=== PATIENT | male | born 1950 | race Caucasian/White ===

== ENCOUNTER 2017-09-21 | Observation (INO) | payer MEDICARE, OTHER, SELFPAY ==
[2017-09-21] VITALS (9 sets, daily range): BP systolic 134–167; BP diastolic 75–94; PULSE 55–72; RESP 16–18; TEMP 36.1–37.1; O2SAT 95–99; BMI 31.9; BMI 28.6; BMI 89.9
--- NOTE | 2017-09-21 00:17 | CT_ITS ---
STUDY: CT ABDOMEN AND PELVIS WITHOUT CONTRAST REASON FOR EXAM: Male, 67 years old. Left flank pain RADIATION DOSAGE (If Supplied By Facility): CTDIvol = ( 13.90 ) mGy, DLP = ( 666.84 ) mGycm TECHNIQUE: Transaxial images were obtained from the dome of the diaphragm to the symphysis pubis without oral contrast, and without intravenous contrast. Sagittal and coronal images were reconstructed. Individualized dose optimization techniques were used for this CT. COMPARISON: None. FINDINGS: The lung bases are clear. The liver is normal with no dilated intrahepatic biliary radicles. The gallbladder is slightly contracted but contains no stones.. The spleen, pancreas and both adrenals are normal. A 7 mm obstructing calculus in the left ureteropelvic junction with a subsequent hydronephrosis. The stomach is normal. There is no bowel distention, acute appendicitis or diverticulitis. No abnormally constricting large bowel lesions. The abdominal wall is intact. There is no ascites, free intraperitoneal air or any evidence of epiploic appendagitis. The vascular structures in the retroperitoneum are normal The bones and joints seen are normal with no osteolytic or osteoblastic changes There is no retrocrural, retroperitoneal or mesenteric adenopathy. There is no mesenteric mistiness The urinary bladder is normal.. The prostate is not enlarged. A 2.1 cm left pelvic lymph node.. CT/Abdomen/Pelvis without Cont IMPRESSION: A left hydronephrosis secondary to a nonobstructing 7 mm calculus in the left ureteropelvic junction. A 2.1 cm left pelvic lymph node. Electronically Signed: James Heredia, at 1:21 EDT Tel , Service support ,
--- NOTE | 2017-09-21 00:22 | ED.DCSUM_ITS ---
- ER Visit Summary Date of Service: 09/21/17 Chief Complaint: Left flank pain History of Present Illness: The patient is a 67 M with sudden onset left side pain earlier this evening. He thought he might of pulled a muscle, but the pain seems to be unrelated to movement. Papi is helping somewhat. It comes on suddenly and then he has difficulty getting comfortable. Denies any urinary symptoms. Denies any other GI symptoms. Denies chest pain or shortness of breath. Physical Examination: Blood pressure 167/94. Otherwise vitals unremarkable. Alert and oriented. No acute distress. Heart regular. Lungs clear. Abdomen soft and nontender. Back nontender. CVA nontender. No overlying rash. Calves soft and supple. Test Results: Labs, urinalysis, and CT pending. Emergency Department Course and Treatment: Patient was treated with fluids while awaiting results. He is not currently having pain and declined any pain medication. Urinalysis is likely contaminated. Creatinine 1.3 and BUN 24. Platelets 139. Patient had saline here. Declined pain medicine. CT showed a 7 mm left UPJ stone and positive lymph nodes. I spoke with urology, Dr. Eisenberg will admit. Treatment Plan: As above Disposition: Admission Impression: 1. Left ureteral colic This note was generated with [employer] dictation software. It may contain incorrect words, spelling, and punctuation that were not noted in review of the chart prior to signing ED Disposition - Plan for ED Patient: Chief Complaint: Flank Pain Referrals: Jay Jay Muniz MD [Primary Care Provider] -
[2017-09-21] MEDS: 0.9% Normal Saline 1,000 ML 1000 ML IV (00:26)
[2017-09-21 00:28] LABS: Absolute Lymphocyte Count 0.87 X10^3/ul (0.83-4.51); Absolute Neutrophil Count 3.3 X10^3/uL (2.0-7.7); Basophil# 0.04 X10^3/uL; Basophil% 0.8 % (0-1); Eosinophil# 0.29 X10^3/uL; Eosinophils% 5.6 % (0-5); Hematocrit 39.6 % (40-54); Hemoglobin 13.7 g/dl (13.0-16.5); Lymphocyte # 0.87 X10^3/ul (4.0); Lymphocyte % 16.9 % (19-41); Mean Corp Hgb Conc 34.6 g/gl (32-36); Mean Corpuscular Hgb 33.1 pg (27.0-32.0); Mean Corpuscular Volume 95.7 fL (80-94); Mean Platelet Vol. 10.8 fl (6.2-12.0); Monocyte# 0.62 X10^3/uL; Neutrophil # 3.31 X10^3/uL (2.7-7.7); Neutrophil % 64.1 % (47-70); Platelet Count 139 K/mm3 (150-450); RBC Distribution Width CV 13.3 % (11.6-14.6); RBC Distribution Width SD 44.8 fl (35.1-43.9); Red Blood Count 4.14 M/mm3 (4.6-6.2); White Blood Count 5.2 K/mm3 (4.4-11.0)
[2017-09-21 00:31] LABS: POSITIVE COUNT NO; POSITIVE DIFFERENTIAL NO; POSITIVE MORPHOLOGY NO
[2017-09-21 00:39] LABS: Mucous, Urine 0 SEEN /hpf (<or=2+)
[2017-09-21 00:41] LABS: Anion Gap 7 (5-15); BUN 24 mg/dL (7-18); BUN/Creat Ratio 18.3 RATIO (10-20); Calcium,Total 8.6 mg/dL (8.5-10.1); Chloride 110 mmol/L (98-107); Creatinine, Serum 1.31 mg/dL (0.70-1.30); EST Glomerular Filtration Rate 58 mL/min (>60); Est Glom Filt Rate - Afr Amer 70 mL/min (>60); Estimated Creatinine Clearance 50.06 ml/min; Glucose 106 mg/dL (74-106); Potassium 4.2 mmol/L (3.5-5.1); Sodium Level 144 mmol/L (136-145)
[2017-09-21 00:46] LABS: Color, Urine Yellow (Yellow); Glucose, Dipstick Normal (Normal); Ketone-Dipstick Negative (Negative); Leukocyte Esterase-Dipstick 25 /ul (Negative); Nitrite-Dipstick Negative (Negative); Occult Blood-Urine 150 /ul (Negative); Protein-Dipstick 30 mg/dl (Negative); Specific Gravity, Urine 1.025 (1.002-1.030); Urine Bilirubin Dipstick Negative (Negative); Urine Clarity Sl Cloudy (Clear); Urine Urobilinogen Normal (Normal)
[2017-09-21 00:49] LABS: Red Blood Cells-Urine 10-25 SEEN /hpf (0-5)
[2017-09-21 00:50] LABS: Bacteria RARE /hpf (None Seen); Squamous Epithelial Cells - UA 0-5 SEEN /hpf (0-5); White Blood Cells 0-5 SEEN /hpf (0-5)
--- NOTE | 2017-09-21 07:33 | PCM.HP.STD ---
Problem List (1) Left ureteral stone Status: Acute (2) Hydronephrosis, left Status: Acute History of Present Illness Date of Admission: 09/21/17 Chief Complaint: 6 x 7 mm stone in the left ureter causing obstruction and left hydronephrosis The patient is a 67 year old male who presented with pain to the emergency room with left flank pain. CT scan was done that demonstrated a stone 7 x 7 mm stones obstructing the left kidney with left hydronephrosis he also had a minor UTI with his urine being positive with nitrite. Clinically no fevers or chills. Patient was offered intervention or discharge to home given that that this this was a surgical stone the patient agreed to undergo intervention with ureteroscopy and laser of the stone Past Medical History Past Medical History (Chronic Problems): Chronic Problems Obstructive sleep apnea, adult (Chronic) HTN (hypertension) (Chronic) HLD (hyperlipidemia) (Chronic) Esophageal reflux (Chronic) Coronary atherosclerosis of [place] coronary artery (Chronic) Allergies cinnamon Allergy (Verified 09/21/17 00:03) Swelling molasses Allergy (Verified 09/21/17 00:03) Swelling olmesartan medoxomil [From Benicar] Adverse Reaction (Verified 09/21/17 00:03) Unknown Home Medications: Ambulatory Orders Medication Instructions Recorded Atorvastatin Calcium [Lipitor] 40 mg PO QHS 03/12/16 Fish Oil/Dha/Epa [Fish Oil 1,200 2 each PO DAILY 03/12/16 mg Fish Oil] Magnesium 250 mg PO DAILY 03/12/16 Metoprolol Tartrate [Lopressor 50 mg PO DAILY 03/12/16 (Beta Kirsite)] Multivitamins,Therapeutic 1 tablet PO DAILY 03/12/16 [Multivitamin] Potassium Chloride [Klor-Con M10] 10 meq PO BID 03/12/16 Psyllium Husk [Metamucil] 1 capsule PO BID 03/12/16 Ranitidine [Zantac] 150 mg PO BID 03/12/16 Aspirin [Adult Low Dose Aspirin EC] 81 mg PO DAILY 06/13/16 Surgical History: no surgical history, - - Multiple orthopedic procedures Psychiatric History: No pertinent psych hx Lives: Spouse/ Significant Other Smoking Status: Never smoker Tobacco Use: Non-smoker Alcohol: None Drugs: None - *Family History Maternal History Items: No pertinent history Review of Systems Constitutional: Denies: Chills, Fever, Weight Change HEENT: Denies: Head Aches, Sinus Congestion, Sinus Drainage Cardiovascular: Denies: Chest Pain, Palpitations Respiratory: Denies: Cough, Shortness of breath at rest, Sputum production Gastrointestinal: Denies: Abdominal Pain, Nausea, Vomiting Genitourinary: Denies: Dysuria Musculoskeletal: Denies: Joint Pain, Joint Tenderness Skin: Denies: Rash, Wounds Neurological: Denies: Numbness, Tingling, Focal weakness Psychiatric: Denies: Anxiety, Depression, Homicidal Ideations, Suicidal Ideations Hematologic/ Lymphatic: Denies: Easy Bruising, Easy Bleeding VTE Information - Inpt Only VTE Present on Admission: No VTE Mechan Device Prophylaxis: SCD's VTE Pharm Prophylaxis ordered?: No Reason prophylaxis not ordered:: Treatment Not Indicated Patient Problems: Active and Suspected Problems Left ureteral stone (Acute) Hydronephrosis, left (Acute) - Physical Exam General: Alert, Oriented x3, Cooperative HEENT: Atraumatic, PERRLA, EOMI, Normocephalic Neck: Supple, No JVD, Negative Carotid Bruits Lungs: Clear to auscultation, Normal air movement Cardiovascular: Regular rate, No murmurs Abdomen: Bowel Sounds Present, Soft, Non Tender Extremities: No edema, Capillary Refill Less than 3 Seconds Skin: No rashes, No breakdown Musculoskeletal: No Tenderness to Palpation of Joints or Extremities Neurological: Cranial nerves II-XII grossly intact Psych/Mental Status: Normal Affect, Appropriate Vital Signs Temp Pulse Resp BP Pulse Ox 97.7 F L 62 16 150/89 H 99 09/21/17 05:56 09/21/17 05:56 09/21/17 05:56 09/21/17 05:56 09/21/17 05:56 Oxygen Delivery Method Room Air Weight: 88.1 kg Body Mass Index (BMI) 28.6 Intake and Output for Last 24 Hours 09/19/17 09/20/17 09/21/17 23:59 23:59 23:59 Intake Total Balance Assessment/Plan Active and Suspected Problems Left ureteral stone (Acute) Hydronephrosis, left (Acute) 67-year-old male with obstruction of the left kidney from a 7 x 7 mm stone in the proximal ureter plan to take the surgery today for cystoscopy ureteroscopy laser of the stone and placement of the stent with a string for extraction in a few days.
--- NOTE | 2017-09-21 07:48 | PCM.DC.URO ---
Discharge Diet: Light diet - advance as tolerated Discharge Activity: Return to Normal Activity May shower in (days): 1 Call your doctor if your incision/area has: Continuous Slow Oozing, Sudden Increased Bleeding, Increased Pain/ Swelling, Increased Redness, Foul Smelling Discharge, Swelling at the incision site Call your doctor if you observe: Fever of 101 or Higher Suture Line Care: Avoid Pulling/Pushing, Avoid Pinching/Bending Allergies/Adverse Reactions: Allergies cinnamon Allergy (Verified 09/21/17 00:03) Swelling molasses Allergy (Verified 09/21/17 00:03) Swelling olmesartan medoxomil [From [facility]] Adverse Reaction (Verified 09/21/17 00:03) Unknown Medications to take at Discharge Atorvastatin Calcium [Lipitor] 40 mg PO QHS 03/12/16 Fish Oil/Dha/Epa [Fish Oil 1,200 mg Fish Oil] 2 each PO DAILY 03/12/16 Magnesium 250 mg PO DAILY 03/12/16 Metoprolol Tartrate [Lopressor (Beta Kirstie)] 50 mg PO DAILY 03/12/16 Multivitamins,Therapeutic [Multivitamin] 1 tablet PO DAILY 03/12/16 Potassium Chloride [Klor-Con M10] 10 meq PO BID 03/12/16 Psyllium Husk [Metamucil] 1 capsule PO BID 03/12/16 Ranitidine [Zantac] 150 mg PO BID 03/12/16 Aspirin [Adult Low Dose Aspirin EC] 81 mg PO DAILY 06/13/16 Docusate Sodium [Colace] 100 mg PO BID #14 cap 09/21/17 Hydrocodone/Acetaminophen [[place] 5-325 Tablet] 1 ea PO Q4H PRN PRN 7 Days #14 tab 09/21/17 Phenazopyridine HCl [Pyridium] 200 mg PO TID #15 tab 09/21/17 Tamsulosin HCl [Flomax] 0.4 mg PO DAILY #7 cap 09/21/17 The following prescriptions were given: Hydrocodone/Acetaminophen [[place] 5-325 Tablet] 1 ea PO Q4H PRN PRN 7 Days #14 tab PRN Reason: Pain Tamsulosin HCl [Flomax] 0.4 mg PO DAILY #7 cap Docusate Sodium [Colace] 100 mg PO BID #14 cap Phenazopyridine HCl [Pyridium] 200 mg PO TID #15 tab Primary Care Physician: Jay Jay Muniz MD [Primary Care Provider] - Please Follow Up With: aRfael Eisenberg MD When: FridaySeptember 24 at 8:45 am to remove stent.
--- NOTE | 2017-09-21 08:06 | DCINST_ITS ---
Discharge Diet: Light diet - advance as tolerated Discharge Activity: Return to Normal Activity May shower in (days): 1 Call your doctor if your incision/area has: Continuous Slow Oozing, Sudden Increased Bleeding, Increased Pain/ Swelling, Increased Redness, Foul Smelling Discharge, Swelling at the incision site Call your doctor if you observe: Fever of 101 or Higher Suture Line Care: Avoid Pulling/Pushing, Avoid Pinching/Bending Allergies/Adverse Reactions: Allergies cinnamon Allergy (Verified 09/21/17 00:03) Swelling molasses Allergy (Verified 09/21/17 00:03) Swelling [facility]mes[facility]il [facility] Adverse Reaction (Verified 09/21/17 00:03) Unknown Medications to take at Discharge Atorvastatin Calcium [Lipitor] 40 mg PO QHS 03/12/16 Fish Oil/Dha/Epa [Fish Oil 1,200 mg Fish Oil] 2 each PO DAILY 03/12/16 Magnesium 250 mg PO DAILY 03/12/16 Metoprolol Tartrate [Lopressor (Beta Kirstie)] 50 mg PO DAILY 03/12/16 Multivitamins,Therapeutic [Multivitamin] 1 tablet PO DAILY 03/12/16 Potassium Chloride [Klor-Con M10] 10 meq PO BID 03/12/16 Psyllium Husk [Metamucil] 1 capsule PO BID 03/12/16 Ranitidine [Zantac] 150 mg PO BID 03/12/16 Aspirin [Adult Low Dose Aspirin EC] 81 mg PO DAILY 06/13/16 Docusate Sodium [Colace] 100 mg PO BID #14 cap 09/21/17 Hydrocodone/Acetaminophen [[place] 5-325 Tablet] 1 ea PO Q4H PRN PRN 7 Days #14 tab 09/21/17 Phenazopyridine HCl [Pyridium] 200 mg PO TID #15 tab 09/21/17 Tamsulosin HCl [Flomax] 0.4 mg PO DAILY #7 cap 09/21/17 The following prescriptions were given: Hydrocodone/Acetaminophen [[place] 5-325 Tablet] 1 ea PO Q4H PRN PRN 7 Days #14 tab PRN Reason: Pain Tamsulosin HCl [Flomax] 0.4 mg PO DAILY #7 cap Docusate Sodium [Colace] 100 mg PO BID #14 cap Phenazopyridine HCl [Pyridium] 200 mg PO TID #15 tab Primary Care Physician: Jay Jay Muniz MD [Primary Care Provider] - Please Follow Up With: Rafael Eisenberg MD When: FridaySeptember 24 at 8:45 am to remove stent.
--- NOTE | 2017-09-21 08:22 | PCM.OPRPT ---
Problem List (1) Left ureteral stone Status: Acute (2) Hydronephrosis, left Status: Acute Report of Operation Date of Procedure: 09/21/17 Pre-Operative Diagnosis: Left ureteral calculi. Post-Operative Diagnosis: Same Surgery/Procedure Performed:: Cystoscopy, balloon dilation of the left ureter, left ureteroscopy laser lithotripsy of stone. And left stent placement Description of Surgical Findings:: 67-year-old male taken back to the operating room after induction of anesthesia he was placed in dorsal lithotomy position the penis and testicles were prepped and draped in usual sterile fashion went into the bladder with a 21 German rigid cystourethroscope the entire length of the urethra was normal the pendulous urethra is normal the bulbar urethra is normal the sphincter was intact and normal prostate had mild bilateral hypertrophy mild obstruction inside the bladder he did have a diverticulum in the posterior wall the bladder a small 2 cm in size the rest of the bladder wall is nice and smooth no tumors or stones the left and right ureteral orifice are normal the trigone was normal. I then cannulated the left ureteral orifice with a Glidewire advanced the wire up into the kidney I could see the wire passed the stone I then used a balloon dilator and balloon dilated the distal ureter with a 12 German 10 cm balloon dilator. Once the distal ureter was balloon dilated and I left the wire in place I went over the wire with the flexible ureteroscope I reached the stone pulled the wire out and then engages stone with laser lithotripsy stone was broken up and the little tiny pieces that should all pass. No significant fragments were left, I then put a wire in through the ureteroscope work my way down the ureteroscope pulled out the ureteroscope leaving the wire in place and then over the wire I placed a stent 6 German by 26 cm stent once a stent was in good position between the kidney and bladder pulled the wire the stent coiled in the kidney and cord in the bladder left the string on the stent for extraction in a few days drain the bladder and the patient anesthetic is currently being reversed he will follow-up in my office will see my nurse practitioner to have the stent removed. Type of Anesthesia:: General Drains: stent left side. - Admit VTE Documentation VTE Present on Admission: No VTE Mechan Device Prophylaxis: SCD's VTE Pharm Prophylaxis ordered?: No
[2017-09-21] MEDS: 0.9% Normal Saline 1,000 ML 75 ML IV (08:50)
[2017-09-21] MEDS: Metoprolol Tartrate 50 MG Tablet PO (10:03)
[2017-09-21] MEDS: Multivitamins,Therapeutic Tablet 1 TABLET PO (10:03)
[2017-09-21] MEDS: Psyllium 1 PACKET PO (10:03)
== END 2017-09-21 12:40 | disposition home or self-care (01) ==
LOC: ED 00:39 → MS2 02:14
PROVIDERS: Admitting Provider Urology; Emergency Provider Emergency Medicine; Family Provider Family Medicine; PCP Family Medicine; Visit Provider Urology
PROC: (CPT 50575; principal; 2017-09-21 07:30)
DX: N13.2 Hydronephrosis with renal and ureteral calculous obstruction (principal)
CPT/HCPCS: 52356; 74176; 76000; 80048; 81001; 85025; 87086; 96360; 96361; 99218; 99282; J7030; A4216; C1769; C2617; G0378

== ENCOUNTER → 2018-07-06 09:49 | Outpatient (CLI) | payer MEDICARE, OTHER, SELFPAY ==
[2017-09-21 03:14] VITALS: BMI 28.6
[2018-07-06 12:06] LABS: Absolute Lymphocyte Count 0.89 X10^3/ul (0.83-4.51); Absolute Neutrophil Count 1.8 X10^3/uL (2.0-7.7); Basophil# 0.03 X10^3/uL; Basophil% 0.8 % (0-1); Eosinophil# 0.38 X10^3/uL; Eosinophils% 10.7 % (0-5); Hematocrit 44.8 % (40-54); Lymphocyte # 0.89 X10^3/ul (4.0); Lymphocyte % 25.1 % (19-41); Mean Corp Hgb Conc 33.5 g/gl (32-36); Mean Corpuscular Hgb 31.7 pg (27.0-32.0); Mean Corpuscular Volume 94.7 fL (80-94); Mean Platelet Vol. 11.5 fl (6.2-12.0); Monocyte# 0.45 X10^3/uL; Monocyte% 12.7 % (0-10); Neutrophil # 1.78 X10^3/uL (2.7-7.7); Neutrophil % 50.1 % (47-70); Platelet Count 155 K/mm3 (150-450); RBC Distribution Width CV 13.1 % (11.6-14.6); Red Blood Count 4.73 M/mm3 (4.6-6.2); White Blood Count 3.6 K/mm3 (4.4-11.0)
[2018-07-06 12:08] LABS: POSITIVE COUNT NO; POSITIVE DIFFERENTIAL NO; POSITIVE MORPHOLOGY NO
[2018-07-06 12:27] LABS: ALB/GLOB Ratio 0.9 RATIO (0.9-2.4); AST(SGOT) 22 U/L (15-37); Alanine Aminotransfer ALT/SGPT 28 U/L (16-61); Albumin, Serum 3.4 g/dL (3.2-5.0); Alkaline Phosphatase 74 U/L (45-117); Anion Gap 10 (5-15); BUN 11 mg/dL (7-18); BUN/Creat Ratio 13.7 RATIO (10-20); Calcium,Total 8.6 mg/dL (8.5-10.1); Chloride 107 mmol/L (98-107); EST Glomerular Filtration Rate 102 mL/min (>60); Est Glom Filt Rate - Afr Amer 124 mL/min (>60); Globulin 3.6 g/dL (2.2-4.2); Glucose 97 mg/dL (74-106); Potassium 4.3 mmol/L (3.5-5.1); Sodium Level 143 mmol/L (136-145); T4 Free Direct 0.98 ng/dL (0.76-1.46); Thyroid Stim Hormone (TSH) 1.59 uIU/mL (0.358-3.74)
[2018-07-06 14:00] LABS: Vitamin B12 1624 pg/mL (211-911)
== END ==
PROVIDERS: PCP Family Medicine; Visit Provider Family Medicine
DX: E78.5 Hyperlipidemia, unspecified (principal); I10 Essential (primary) hypertension; D69.6 Thrombocytopenia, unspecified
CPT/HCPCS: 36415; 80053; 82607; 84439; 84443; 85025

== ENCOUNTER → 2018-07-17 17:40 | Outpatient (CLI) | payer MEDICARE, OTHER, SELFPAY ==
[2018-07-17 17:02] VITALS: BMI 28.6
--- NOTE | 2018-07-17 17:45 | RAD_ITS ---
STUDY: X-RAY - LEFT FOOT CLINICAL: Male, 68 years old. Infection of the left foot, cellulitis TECHNIQUE: 3 view(s) of the foot. COMPARISON: Prior comparison studies are not available for review at this time. FINDINGS: There is a plantar calcaneal spur. Accessory ossicles adjacent to the calcaneus. Normal metatarsi. Normal metatarsophalangeal joint of the great toe. Normal tibial and fibular sesamoid bones. Normal interphalangeal joint of the great toe. Normal phalanges of the great toe. Normal second through fifth metatarsophalangeal joints. Normal interphalangeal joints and phalanges of the lesser toes. Vascular calcifications are noted. RAD/Foot min 3 Views IMPRESSION: 1. No erosive or destructive bony process. Electronically Signed: Juan Carlos Randolph MD at 18:37 EST , Service support ,
== END ==
PROVIDERS: Family Provider Family Medicine; PCP Family Medicine; Referring Provider Physician Assistant Surgical; Visit Provider Physician Assistant Surgical
DX: L03.116 Cellulitis of left lower limb (principal)
CPT/HCPCS: 73630

== ENCOUNTER → 2018-07-27 10:38 | Outpatient (CLI) | payer MEDICARE, OTHER, SELFPAY ==
[2018-07-17 17:02] VITALS: BMI 28.6
[2018-07-27 12:53] LABS: CRP < 2.90 mg/L (0.0-3.0)
[2018-07-27 13:04] LABS: Erythrocyte Sedimentation Rate 13 mm/hr (0-20)
[2018-07-29 10:45] LABS: ANTINUCLEAR ANTIBODIES DIRECT Negative (Negative)
== END ==
PROVIDERS: Family Provider Family Medicine; PCP Family Medicine; Visit Provider Family Medicine
DX: I73.89 Other specified peripheral vascular diseases (principal); G62.9 Polyneuropathy, unspecified; D72.819 Decreased white blood cell count, unspecified
CPT/HCPCS: 36415; 85652; 86038; 86140; 86225; 86235

== ENCOUNTER → 2018-09-08 11:23 | Outpatient (CLI) | payer MEDICARE, OTHER, SELFPAY ==
[2018-08-29 11:13] VITALS: BMI 28.6
--- NOTE | 2018-09-08 11:24 | RAD_ITS ---
STUDY: X-RAY - LEFT SHOULDER REASON FOR EXAM: Male, 68 years old. Left shoulder pain TECHNIQUE: 4 view(s) of the shoulder. COMPARISON: None. FINDINGS: Moderate chronic acromioclavicular joint arthrosis/hypertrophy. Normal glenohumeral articulation. Osseous structures about the shoulder appear acutely intact. There is mild generalized osteopenia. Periarticular soft tissues unremarkable. Left hemithoracic structures unremarkable. RAD/Shoulder min 2 Views IMPRESSION: Chronic acromioclavicular joint arthrosis. Electronically Signed: Corbin Hurtado MD at 17:45 EDT Tel , Service support ,
== END ==
PROVIDERS: Family Provider Family Medicine; PCP Family Medicine; Referring Provider Anesthesiology Pain Medicine; Visit Provider Anesthesiology Pain Medicine
DX: M75.42 Impingement syndrome of left shoulder (principal)
CPT/HCPCS: 73030

== ENCOUNTER 2018-10-17 12:44 | Emergency (ER) | payer MEDICARE, OTHER, SELFPAY ==
[2018-09-24 10:32] VITALS: BMI 28.6
[2018-10-17 12:45] VITALS: BP 144/100; PULSE 84; RESP 18; TEMP 36.4; O2SAT 98; BMI 30.7
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
[2018-10-17] MEDS: Diphth,Pertuss(Acell),Tet Vac 0.5 ML Vial IM (13:26)
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
[2018-10-17 14:32] VITALS: BP 150/92; PULSE 70; RESP 15; O2SAT 98
== END 2018-10-17 14:33 | disposition home or self-care (01) ==
PROVIDERS: Emergency Provider Emergency Medicine; Family Provider Family Medicine; PCP Family Medicine
DX: S06.0X1A Concussion with loss of consciousness of 30 minutes or less, initial encounter (principal); S00.31XA Abrasion of nose, initial encounter; L08.9 Local infection of the skin and subcutaneous tissue, unspecified; S70.311A Abrasion, right thigh, initial encounter; V11.4XXA Pedal cycle driver injured in collision with other pedal cycle in traffic accident, initial encounter; Y93.55 Activity, bike riding; Y92.9 Unspecified place or not applicable; I25.10 Atherosclerotic heart disease of native coronary artery without angina pectoris; K21.9 Gastro-esophageal reflux disease without esophagitis; E78.5 Hyperlipidemia, unspecified; I10 Essential (primary) hypertension; G47.33 Obstructive sleep apnea (adult) (pediatric); Z79.82 Long term (current) use of aspirin; Z79.899 Other long term (current) drug therapy
CPT/HCPCS: 70450; 90471; 90715; 99282

== ENCOUNTER 2019-03-23 09:16 | Day surgery (SDC) | payer MEDICARE, OTHER, SELFPAY ==
[2019-03-23] VITALS (8 sets, daily range): BP systolic 117–149; BP diastolic 70–94; PULSE 60–63; RESP 12–16; TEMP 36.3–36.6; O2SAT 94–100; BMI 29.3
--- NOTE | 2019-03-23 09:36 | HP.PCM_ITS ---
Problem List (1) Screening for intestinal cancer Status: Acute History of Present Illness Date of Admission: 03/23/19 The patient is a 68 year old M who presents for screening colonoscopy today his most recent colonoscopy was 5 years ago. He has a family history with a father had colon cancer. He believes that very remotely he had colon polyp. He denies abdominal pain or bright red blood per rectum or melena. He is otherwise enjoying steady health. Past Medical History Past Medical History (Chronic Problems): Chronic Problems (Last Reviewed 09/24/18 @ 10:30 by Lashawn White) Obstructive sleep apnea, adult (Chronic) HTN (hypertension) (Chronic) HLD (hyperlipidemia) (Chronic) Esophageal reflux (Chronic) Coronary atherosclerosis of [place] coronary artery (Chronic) Allergies cinnamon Allergy (Verified 03/23/19 09:29) Swelling molasses Allergy (Verified 03/23/19 09:29) Swelling olmesartan medoxomil [From Benicar] Adverse Reaction (Verified 03/23/19 09:29) Unknown Home Medications: Ambulatory Orders Medication Instructions Recorded Fish Oil/Dha/Epa [Fish Oil 1,200 2 ea PO DAILY 03/12/16 mg Fish Oil] Magnesium 250 mg PO DAILY 03/12/16 Metoprolol Tartrate [Lopressor 50 mg PO DAILY 03/12/16 (Beta Kirstie)] Multivitamins,Therapeutic 1 tab PO DAILY 03/12/16 [Multivitamin] Potassium Chloride [Klor-Con M10] 10 meq PO BID 03/12/16 Psyllium Husk [Metamucil] 1 cap PO BID 03/12/16 Ranitidine [Zantac] 150 mg PO BID 03/12/16 Aspirin [Adult Low Dose Aspirin EC] 81 mg PO DAILY 06/13/16 atorvastatin 40 mg tablet 40 mg PO QHS 08/29/18 Amlodipine [Norvasc] 5 mg PO DAILY 03/18/19 Surgical History: no surgical history, - - Multiple orthopedic procedures Psychiatric History: No pertinent psych hx Smoking Status: Never smoker Tobacco Use: Non-smoker - *Family History Maternal History Items: No pertinent history Review of Systems Constitutional: Denies: Anorexia HEENT: Denies: Difficulty Swallowing Gastrointestinal: Denies: Abdominal Pain, Constipation Endocrine: Denies: Change in Body Habitus VTE Information - Inpt Only VTE Present on Admission: No Patient Problems: Active and Suspected Problems (Last Reviewed 09/24/18 @ 10:30 by Lashawn White) Screening for intestinal cancer (Acute) - Physical Exam General: Alert, Oriented x3, Cooperative Oral: Moist Mucosa Lungs: Clear to auscultation, Normal air movement Cardiovascular: Regular rate, Regular Rhythm Abdomen: Bowel Sounds Present, Soft, Non Tender Body Mass Index (BMI) 30.7 Assessment/Plan All Active Problems (Last Reviewed 09/24/18 @ 10:30 by Lashawn White) Screening for intestinal cancer (Acute) Bronchitis (Acute) URI (upper respiratory infection) (Acute) Right foot pain (Acute) Cellulitis of left foot (Acute) Left ureteral stone (Acute) Hydronephrosis, left (Acute) I am recommending to the patient a colonoscopy with possible biopsy or polypectomy is indicated. He is aware of the technique, benefits, risks and alternatives. He has had an opportunity to ask and have questions answered. He presents via our open access program today. We will proceed as noted. Carroll Araiza M.D., F.A.C.S.
[2019-03-23] MEDS: Lactated Ringers 1,000 ML 75 ML IV (09:42)
--- NOTE | 2019-03-23 10:45 | OP.ENDO_ITS ---
03/23/2019 Jay Jay Muniz Re : Colonoscopy procedure for Richard Hernández Dear Flavio This procedure was performed on Saturday, March 23, 2019. My impressions and recommendations are as follows: Impressions : - Non-thrombosed internal hemorrhoids, internal hemorrhoids that prolapse with straining, but spontaneously regress to the resting position (Grade II) and increased firmness of the prostate found on digital rectal exam. - Diverticulosis in the sigmoid colon and in the descending colon. - The examination was otherwise normal. - No specimens collected. Recommendations : - Discharge patient to home. - Resume previous diet. - Continue present medications. - Repeat colonoscopy in 5 years for surveillance. Patient will be asked to follow up with Dr Muniz regarding firm texture to prostate My findings are described in the full procedure note, which is enclosed. If I can be of further assistance, please feel free to contact me at Doctor phone number(s): Work: . Sincerely, Carroll Araiza MD 03/23/2019 10:44:40 AM This report has been signed electronically.
== END 2019-03-23 12:23 | disposition home or self-care (01) ==
LOC: EN 09:18 → AC 09:20
PROVIDERS: Family Provider Family Medicine; PCP Family Medicine; Referring Provider Family Medicine; Visit Provider Surgery
PROC: 0DJD8ZZ Inspection of Lower Intestinal Tract, Via Natural or Artificial Opening Endoscopic (ICD-10-PCS; CPT 45378; principal; 2019-03-23 10:10)
DX: Z12.11 Encounter for screening for malignant neoplasm of colon (principal); K64.1 Second degree hemorrhoids; K57.30 Diverticulosis of large intestine without perforation or abscess without bleeding; N42.9 Disorder of prostate, unspecified; Z80.0 Family history of malignant neoplasm of digestive organs; G47.33 Obstructive sleep apnea (adult) (pediatric); I10 Essential (primary) hypertension; E78.5 Hyperlipidemia, unspecified; K21.9 Gastro-esophageal reflux disease without esophagitis; I25.10 Atherosclerotic heart disease of native coronary artery without angina pectoris; Z87.442 Personal history of urinary calculi; Z79.82 Long term (current) use of aspirin; Z79.899 Other long term (current) drug therapy
CPT/HCPCS: G0105; 99152; 99153; J7120

== ENCOUNTER → 2019-04-16 13:50 | Outpatient (CLI) | payer MEDICARE, OTHER, SELFPAY ==
[2019-03-23 09:34] VITALS: BMI 29.3
[2019-04-16 16:08] LABS: Absolute Lymphocyte Count 1.23 X10^3/uL (0.83-4.51); Basophil# 0.06 X10^3/uL; Basophil% 1.1 % (0-1); Eosinophil# 0.47 X10^3/uL; Eosinophils% 8.7 % (0-5); Hematocrit 42.7 % (40-54); Hemoglobin 14.3 g/dL (13.0-16.5); Lymphocyte # 1.23 X10^3/ul (4.0); Lymphocyte % 22.7 % (19-41); Mean Corp Hgb Conc 33.5 g/dL (32-36); Mean Corpuscular Hgb 32.4 pg (27.0-32.0); Mean Corpuscular Volume 96.6 fL (80-94); Monocyte# 0.57 X10^3/uL; Monocyte% 10.5 % (0-10); NRBC Flagged by Analyzer 0 % (0-5); Neutrophil # 3.04 X10^3/uL (2.7-7.7); Neutrophil % 56.1 % (47-70); Platelet Count 166 K/mm3 (150-450); RBC Distribution Width CV 13.1 % (11.6-14.6); RBC Distribution Width SD 46.6 fl (35.1-43.9); Red Blood Count 4.42 M/mm3 (4.6-6.2); White Blood Count 5.4 K/mm3 (4.4-11.0)
[2019-04-16 16:21] LABS: PSA,Total - Annual Screen 0.75 ng/mL (0.00-4.00)
== END ==
PROVIDERS: Family Provider Family Medicine; PCP Family Medicine; Visit Provider Family Medicine
DX: I10 Essential (primary) hypertension (principal); Z12.5 Encounter for screening for malignant neoplasm of prostate
CPT/HCPCS: 36415; 84153; 85025; G0103

== ENCOUNTER 2019-05-31 03:17 | Emergency (ER) | payer MEDICARE, OTHER, SELFPAY ==
[2019-03-23 09:34] VITALS: BMI 29.3
[2019-05-31 03:19] VITALS: BP 157/80; PULSE 70; RESP 14; TEMP 37; O2SAT 96; BMI 34.6
[2019-05-31 03:31] LABS: Bedside Glucose 102 mg/dL (70-110)
--- NOTE | 2019-05-31 03:34 | CT_ITS ---
HISTORY: DIZZINESS AND LT SIDED HEADACHE THIS AM HX:HTN,MELANOMA EXAMINATION: CT Head or Brain W/O Contrast Injection TECHNIQUE: Multiple axial images were obtained of the brain without intravenous contrast. A radiation dose optimization technique was used for this scan. IV Contrast dosage and agent: None. COMPARISON: 10/17/2018 FINDINGS: Stable findings. Normal ventricles and age appropriate cerebral cortical atrophy. Focal benign appearing ossification of the anterior falx cerebri. No intracranial mass, hemorrhage, or acute parenchymal abnormality. Vertebrobasilar atherosclerotic calcifications and otherwise negative posterior fossa. Bilateral carotid atherosclerotic calcifications, as well. No suspicious extra-axial fluid collection. As visualized, the mastoids and paranasal sinuses are clear. CT/Brain/Head without Contrast IMPRESSION: 1. Stable exam. No intracranial hemorrhage or acute intracranial disease identified. 2. Age-appropriate cerebral cortical atrophy. 3. Carotid and vertebrobasilar atherosclerotic calcifications. Individualized dose optimization techniques were used for this CT. at 0419 Reported and signed by: Valeriy Gibbons MD Electronically Signed: Valeriy Gibbons, at 4:18 EST Tel , Service support ,
--- NOTE | 2019-05-31 03:35 | ED.VIS.STROK ---
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 Negative for: Nausea, Vomiting, Chest Pain Narrative: Patient awoke with the symptoms and he has never had this before. He states he has chronic tinnitus, which he does not notice right now, in both ears. No earache or discharge, no recent URI. No recent head injury or seizure. States that he woke up with the symptoms prior to getting out of bed he had no vertigo. When he went to get out of bed and walk, it became worse and he was off balance and thought he was going to fall, so he crawled to and from the bathroom. He was concerned about the symptoms, so presents to the emergency department. He denies any other neurologic symptoms such as vision changes/diplopia, numbness, focal weakness, there was no loss of consciousness or near syncope or thoracic symptoms. He is compliant with medications for blood pressure, hyperlipidemia. Prior similar symptoms: No Recent Illness/Hospitalization: No - Past Medical History (1) Left ureteral stone Status: Resolved (2) Coronary atherosclerosis of [place] coronary artery Status: Chronic (3) Esophageal reflux Status: Chronic (4) HLD (hyperlipidemia) Status: Chronic (5) HTN (hypertension) Status: Chronic (6) Obstructive sleep apnea, adult Status: Chronic Past Medical History - Allergies and Home Meds Allergies/Adverse Reactions: Allergies cinnamon Allergy (Verified 05/31/19 03:23) Swelling molasses Allergy (Verified 05/31/19 03:23) Swelling olmesartan medoxomil [From Benicar] Adverse Reaction (Verified 05/31/19 03:23) Unknown Primary Care Physician: Jerrell Reina MD [STAFF PHYSICIAN] - 1 Week if not improving Jay Jay Muniz MD [Primary Care Provider] - Surgical History: - - Multiple orthopedic procedures Lives: With Family Smoking Status: Never smoker Alcohol: None - Family History Maternal Family History: Reports: No pertinent history Review of Systems General: Denies: Chills, Fever, Sweats Eyes: Denies: Visual changes - bilaterally, Diplopia ENT: Denies: Rhinorrhea, Sore throat Cardiovascular: Denies: Chest pain, Palpitations Respiratory: Denies: Dyspnea, Cough, Dyspnea on exertion Gastrointestinal: Denies: Abdominal pain, Nausea, Vomiting, Diarrhea, Melena, Hematochezia Genitourinary: Denies: Dysuria, Hematuria, Frequency Musculoskeletal: Denies: Neck pain, Back pain, Extremity Pain Skin: Denies: Rash, Wounds Neurological: Reports: Headache, - - vertigo. Denies: Weakness, Numbness STROKE Vital Signs/Narrative: Vital Signs Temp Pulse Resp BP Pulse Ox 05/31/19 03:19 98.6 F 70 14 157/80 H 96 Inital Vital Signs reviewed: Yes - NIHSS Initial 1a Level of Consciousness: 0 1b LOC Questions (Score 2 if aphasic/stupor): 0 1c LOC Commands (Only score 1st attempt): 0 2 Best Gaze (If aphasic, use reflexive mvmts.): 0 3 Visual: 0 4 Facial Palsy: 0 5 Motor Arm Right (UN = amputation/fusion): 0 5 Motor Arm Left: 0 6 Motor Leg Right: 0 6 Motor Leg Left: 0 7 Limb ataxia (Only + if out of proportion): 0 8 Sensory (Aphasia/stupor=0 or 1, coma=2): 0 9 Best Language: 0 10 Dysarthria (mute, coma=2, intubated=UN): 0 11 Extinction and Inattention (only scored if +): 0 Total Score: 0 General: Well nourished, Well developed Head: Normocephalic, Atraumatic Eyes: Perrl, EOMI, - - While sitting at rest, no vertical, rotatory, or horizontal abnormal nystagmus ENT: Moist mucous membranes, No rhinorrhea, TM's clear. Negative for: Sinus tenderness Neck: Supple, Nontender, No lymphadenopathy Cardiovascular: Regular rate, Regular rhythm, No murmurs Respiratory: No distress, CTA bilaterally, Chest nontender Abdomen: Soft, Nontender, Nondistended, Normal bowel sounds Back: Nontender, Normal Inspection Extremities: Nontender, No edema Skin: Normal color, No rash, No Trauma Neurological: Alert, Oriented x3, Cranial nerves II-XII grossly intact, Normal Strength, Normal Sensation, Normal DTR, - - Positive Timothy-Hallpike to the left only, with non-fatigable horizontal nystagmus during the procedure Psychological: Normal affect, Normal Mood Diagnostic/Tx/Re-eval Clinical Impression(s) from Imaging Studies Brain CT 05/31/19 03:34 IMPRESSION: 1. Stable exam. No intracranial hemorrhage or acute intracranial disease identified. 2. Age-appropriate cerebral cortical atrophy. 3. Carotid and vertebrobasilar atherosclerotic calcifications. Individualized dose optimization techniques were used for this CT. at 0419 Reported and signed by: Valeriy Gibbons MD Electronically Signed: Valeriy Gibbons, at 4:18 EST Tel , Service support , - Medical Decision Making CT is showing nothing acute, which certainly does not rule out an acute ischemic stroke, however this patient has classic findings of benign paroxysmal positional vertigo. Furthermore, after 1 dose of oral Antivert, his symptoms are resolved. He walked to and from the bathroom without any ataxia or symptoms and feels much better. For this reason I do not think we need to consider central causes of vertigo at this time. We discussed reasons to return, reasons to follow-up with ENT, and what to do at home. He was given a prescription for Antivert and discharged, all questions answered and he is comfortable with this plan. ED Disposition - Plan for ED Patient: Disposition: Home or Assisted Living Diagnosis: Benign paroxysmal positional vertigo of left ear Instructions: Benign Positional Vertigo Prescriptions: Meclizine HCl [Antivert] 25 mg PO TID PRN #16 tab PRN Reason: Dizziness Transmission Status: Received by [id number] Referrals: Jay Jay Muniz MD [Primary Care Provider] - Jerrell Reina MD [STAFF PHYSICIAN] - 1 Week if not improving
[2019-05-31] MEDS: Meclizine HCl 25 MG Tablet PO (03:37)
[2019-05-31 04:41] VITALS: BP 128/84; PULSE 72; RESP 17; O2SAT 96
== END 2019-05-31 04:42 | disposition home or self-care (01) ==
PROVIDERS: Emergency Provider Emergency Medicine; Family Provider Family Medicine; PCP Family Medicine
DX: H81.12 Benign paroxysmal vertigo, left ear (principal); I25.10 Atherosclerotic heart disease of native coronary artery without angina pectoris; I10 Essential (primary) hypertension; E78.5 Hyperlipidemia, unspecified; K21.9 Gastro-esophageal reflux disease without esophagitis; Z79.82 Long term (current) use of aspirin; Z79.899 Other long term (current) drug therapy
CPT/HCPCS: 70450; 82962; 99285; A4216

== ENCOUNTER → 2019-07-07 13:33 | Outpatient (CLI) | payer MEDICARE, OTHER, SELFPAY ==
[2019-07-07 15:37] LABS: Absolute Lymphocyte Count 1.07 X10^3/uL (0.83-4.51); Absolute Neutrophil Count 2.8 X10^3/uL (2.0-7.7); Basophil# 0.04 X10^3/uL; Basophil% 0.9 % (0-1); Eosinophil# 0.18 X10^3/uL; Eosinophils% 3.9 % (0-5); Hematocrit 42.5 % (40-54); Hemoglobin 13.9 g/dL (13.0-16.5); Lymphocyte # 1.07 X10^3/ul (4.0); Lymphocyte % 23.2 % (19-41); Mean Corp Hgb Conc 32.7 g/dL (32-36); Mean Corpuscular Hgb 30.9 pg (27.0-32.0); Mean Corpuscular Volume 94.4 fL (80-94); Mean Platelet Vol. 11.1 fl (6.2-12.0); Monocyte# 0.47 X10^3/uL; Monocyte% 10.2 % (0-10); NRBC Flagged by Analyzer 0 % (0-5); Neutrophil # 2.83 X10^3/uL (2.7-7.7); Neutrophil % 61.2 % (47-70); Platelet Count 161 K/mm3 (150-450); RBC Distribution Width CV 12.5 % (11.6-14.6); RBC Distribution Width SD 42.9 fl (35.1-43.9); White Blood Count 4.6 K/mm3 (4.4-11.0)
[2019-07-07 15:50] LABS: Anion Gap 2 (5-15); BUN 11 mg/dL (7-18); BUN/Creat Ratio 14.5 RATIO (10-20); Calcium,Total 8.8 mg/dL (8.5-10.1); Chloride 106 mmol/L (98-107); Creatinine, Serum 0.76 mg/dL (0.70-1.30); EST Glomerular Filtration Rate 108 mL/min (>60); Est Glom Filt Rate - Afr Amer 131 mL/min (>60); Glucose 99 mg/dL (74-106); Sodium Level 140 mmol/L (136-145); Thyroid Stim Hormone (TSH) 1.38 uIU/mL (0.358-3.74)
== END ==
PROVIDERS: PCP Family Medicine; Visit Provider Family Medicine
DX: I10 Essential (primary) hypertension (principal); E04.1 Nontoxic single thyroid nodule
CPT/HCPCS: 36415; 80048; 84443; 85025

== ENCOUNTER 2020-01-29 02:17 | Emergency (ER) | payer MEDICARE, OTHER, SELFPAY ==
[2020-01-29 02:18] VITALS: BP 152/77; PULSE 62; RESP 18; TEMP 36.2; O2SAT 98; BMI 31.6
--- NOTE | 2020-01-29 02:35 | ED.DCSUM_ITS ---
- ER Visit Summary Date of Service: 01/29/20 Chief Complaint: Allergic reaction History of Present Illness: The patient is a [address] Jay Jay Muniz. He reports that he ate a cinnamon bagel approximately 11 PM. He woke up at 130 this morning to go to the restroom and found that his cheeks were swollen. He took Benadryl and states that it always seems like it is improving. Patient reports he is had allergic reactions to molasses in the past. He is not on an JOHN inhibitor. He denies any rash, shortness of breath, or other complaints. Physical Examination: Vitals: Stable. Afebrile. General: Well-nourished and well-developed. Head: Normocephalic atraumatic. HEENT: Mild swelling to his cheeks bilaterally. There is no angioedema of his lips, tongue, oropharynx. Neck: Supple, no lymphadenopathy. No JVD. Nontender. Cardiovascular: Regular rate and rhythm. No murmurs. Respiratory: No respiratory distress. Clear to auscultation bilaterally. Abdominal: Soft, nontender, nondistended, normal bowel sounds. No guarding, rebound, or peritoneal signs. Back: Nontender. Extremities: Nontender, no edema. Skin: Normal color, no rash. Neurologic: Alert and oriented ?3. Cranial nerves II through XII are intact. Normal strength and sensation. Psych: Normal affect. Emergency Department Course and Treatment: Patient reports his symptoms of already improved. He was given Pepcid and prednisone p.o. He feels well and would like to go home. Treatment Plan: Patient will be discharged with Zyrtec, Pepcid, and a 5-day burst of prednisone. Instructed to follow-up with his primary care physician 1 to 2 days if not improving. Return to the emergency department for any worsening symptoms. Disposition: To home in improved and stable condition. Impression: 1. Allergic reaction, uncertain cause. This note was generated with hoccer dictation software. It may contain incorrect words, spelling, and punctuation that were not noted in review of the chart sara or to signing ED Disposition - Plan for ED Patient: Disposition: Home or Assisted Living Instructions: ED General Allergic Reactions Prescriptions: Prednisone [Deltasone] 40 mg PO DAILY #10 tab Prescription Printed Famotidine [Pepcid] 20 mg PO BID #28 tab Prescription Printed Cetirizine HCl [Zyrtec] 10 mg PO DAILY #14 cap Prescription Printed Referrals: Jay Jay Muniz MD [Primary Care Provider] - 1-2 Days if not improving
[2020-01-29] MEDS: predniSONE 20 MG Tablet 60 MG PO (02:41)
[2020-01-29] MEDS: Famotidine 20 MG Tablet 40 MG PO (02:42)
[2020-01-29 02:44] VITALS: RESP 18
== END 2020-01-29 02:50 | disposition home or self-care (01) ==
PROVIDERS: Emergency Provider Emergency Medicine; PCP Family Medicine
DX: T78.1XXA Other adverse food reactions, not elsewhere classified, initial encounter (principal); R22.0 Localized swelling, mass and lump, head; X58.XXXA Exposure to other specified factors, initial encounter; I10 Essential (primary) hypertension; E78.00 Pure hypercholesterolemia, unspecified; Z79.82 Long term (current) use of aspirin; Z79.899 Other long term (current) drug therapy
CPT/HCPCS: 99283

== ENCOUNTER → 2020-03-08 14:38 | Outpatient (CLI) | payer MEDICARE, OTHER, SELFPAY ==
[2020-03-08 16:52] LABS: Absolute Lymphocyte Count 1.17 X10^3/uL (0.83-4.51); Absolute Neutrophil Count 4.3 X10^3/uL (2.0-7.7); Basophil# 0.05 X10^3/uL; Basophil% 0.8 % (0-1); Eosinophil# 0.18 X10^3/uL; Eosinophils% 2.9 % (0-5); Hematocrit 40.9 % (40-54); Hemoglobin 13.4 g/dL (13.0-16.5); Lymphocyte # 1.17 X10^3/ul (4.0); Lymphocyte % 18.7 % (19-41); Mean Corp Hgb Conc 32.8 g/dL (32-36); Mean Corpuscular Hgb 31.5 pg (27.0-32.0); Mean Platelet Vol. 10.8 fl (6.2-12.0); Monocyte# 0.55 X10^3/uL; Monocyte% 8.8 % (0-10); NRBC Flagged by Analyzer 0 % (0-5); Neutrophil # 4.27 X10^3/uL (2.7-7.7); Neutrophil % 68.2 % (47-70); Platelet Count 170 K/mm3 (150-450); RBC Distribution Width CV 13.2 % (11.6-14.6); RBC Distribution Width SD 47.1 fl (35.1-43.9); Red Blood Count 4.26 M/mm3 (4.6-6.2); White Blood Count 6.3 K/mm3 (4.4-11.0)
[2020-03-08 17:02] LABS: Anion Gap 1 (5-15); BUN 18 mg/dL (7-18); BUN/Creat Ratio 26.1 RATIO (10-20); Calcium,Total 8.6 mg/dL (8.5-10.1); Chloride 108 mmol/L (98-107); Creatinine, Serum 0.69 mg/dL (0.70-1.30); EST Glomerular Filtration Rate 121 mL/min (>60); Est Glom Filt Rate - Afr Amer 147 mL/min (>60); Glucose 95 mg/dL (74-106); Potassium 3.6 mmol/L (3.5-5.1); Sodium Level 143 mmol/L (136-145); Thyroid Stim Hormone (TSH) 1.13 uIU/mL (0.358-3.74)
== END ==
PROVIDERS: PCP Family Medicine; Visit Provider Family Medicine
DX: I10 Essential (primary) hypertension (principal); R73.01 Impaired fasting glucose; D69.6 Thrombocytopenia, unspecified; E04.1 Nontoxic single thyroid nodule
CPT/HCPCS: 36415; 80048; 84439; 84443; 85025

== ENCOUNTER 2020-08-02 10:34 | Outpatient (RCR) | payer MEDICARE, OTHER, SELFPAY | END 2020-08-02 23:59 | LOC: IMMUN 10:34 | PROVIDERS: PCP Family Medicine; Referring Provider Family Medicine; Visit Provider Family Medicine | DX: Z23 Encounter for immunization (principal) | CPT/HCPCS: 0011A; 0012A; 91301 ==

== ENCOUNTER → 2020-09-19 10:47 | Outpatient (CLI) | payer MEDICARE, OTHER, SELFPAY ==
[2020-09-19 12:16] LABS: Absolute Lymphocyte Count 0.99 X10^3/uL (0.83-4.51); Absolute Neutrophil Count 2.9 X10^3/uL (2.0-7.7); Basophil# 0.03 X10^3/uL; Basophil% 0.7 % (0-1); Eosinophil# 0.17 X10^3/uL; Eosinophils% 3.7 % (0-5); Hemoglobin 13.8 g/dL (13.0-16.5); Lymphocyte # 0.99 X10^3/ul (4.0); Lymphocyte % 21.7 % (19-41); Mean Corp Hgb Conc 32.1 g/dL (32-36); Mean Corpuscular Hgb 30.7 pg (27.0-32.0); Mean Corpuscular Volume 95.6 fL (80-94); Mean Platelet Vol. 11.1 fl (6.2-12.0); Monocyte# 0.41 X10^3/uL; NRBC Flagged by Analyzer 0 % (0-5); Neutrophil # 2.92 X10^3/uL (2.7-7.7); Platelet Count 180 K/mm3 (150-450); RBC Distribution Width CV 12.9 % (11.6-14.6); RBC Distribution Width SD 45.4 fl (35.1-43.9); White Blood Count 4.6 K/mm3 (4.4-11.0)
[2020-09-19 12:33] LABS: Anion Gap 5 (5-15); BUN 12 mg/dL (7-18); BUN/Creat Ratio 17.8 RATIO (10-20); Chloride 106 mmol/L (98-107); Creatinine, Serum 0.68 mg/dL (0.70-1.30); EST Glomerular Filtration Rate 124 mL/min (>60); Est Glom Filt Rate - Afr Amer 150 mL/min (>60); Glucose 96 mg/dL (74-106); Potassium 4.2 mmol/L (3.5-5.1); Sodium Level 138 mmol/L (136-145)
== END ==
PROVIDERS: PCP Family Medicine; Referring Provider Family Medicine; Visit Provider Family Medicine
DX: Z01.818 Encounter for other preprocedural examination (principal); I10 Essential (primary) hypertension; M75.80 Other shoulder lesions, unspecified shoulder
CPT/HCPCS: 36415; 80048; 85025

== ENCOUNTER 2021-01-17 12:00 | Outpatient (RCR) | payer MEDICARE, OTHER, SELFPAY ==
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
--- NOTE | 2020-11-28 09:12 | HP.PTREVAL ---
Dr. Wilbert Bush MD, It has been my pleasure to treat LC MCGEE over the last 19 visits for L Complete Rotator Cuff Tear Repair 09/21/20. Please see the progress note below for an update on the physical therapy plan of care! Subjective: Pt. reports overall doing much better. Pt. reports no pain currently. He is to see physician next week. He is also going on long weekend vacation the following week. Objective/Function: ROM: L shoulder: PROM- flexion 172deg, abd 165deg, ER at 90deg 88deg, IR at 90deg 56deg. AROM: flexion 165deg, abd 155deg, functional ER C4, functional IR L1. Pt. has started some light deltoid strengthening, RTC isometrics and trap strengthening. He is overall tolerating exercises and strengthening well. He is to follow up with physician next week. Overall pleased with his progress. Plan Plan: Pt. to see physician. I expect him to progress into phase III, but still focus on end range stretching to achieve full ROM. Goals Goal 1:: LTG: Pt. will be able to actively lift his shoulder to 150 degrees to reach in cabinets above his head. Goal Time Frame: 6-8 Weeks Goal Progress: Goal Met Goal 2:: LTG: Pt. will rank pain less than a 2/10 while walking without his shoulder in the sling. Goal Time Frame: 6-8 Weeks Goal Progress: Goal Met Goal 3:: LTG: Pt. will be compliant and independent with his HEP. Goal Time Frame: 2-4 Weeks Goal Progress: Goal Met Goal 4:: LTG: Pt. will be able to resume all ADL's without pain. Goal Time Frame: 6-8 Weeks Goal Progress: Progressing Goal 5:: STG: Pt. to sleep without increase in symptoms. Goal Progress: Progressing Goal 6:: LTG: Pt. to have full AROM of L shoulder without increase in symptoms. Goal Progress: Progressing Anticipated Interventions Patient/Client Instruction: Educate patient on: Condition, Plan of Care, Risk Factors, Benefits of Fitness Program For the Purpose of:: To prevent re-injury, To improve ability to perform tasks related to life management, To improve tolerance to ADL's Therapeutic Exercise to Include: Strength training, Power training, Postural training, Passive ROM, Active ROM, Dynamic Lumbar Stabilization, Scapular Strength/Stabilization For the Purpose of:: To decrease pain, To increase ROM, To improve nutrient delivery to tissue, To increase oxygenation perfusion, To improve muscle performance and motor function, To improve ability to perform ADL's, To increase tolerance to activity/condition/position, To improve health of tissue, To decrease soft tissue restriction, To increase flexibility/ROM Manual Therapy Techniques to Include: Mobilization, Passive ROM For the Purpose of:: To decrease pain, To increase ROM, To improve nutrient delivery to tissue, To improve health of tissue, To decrease soft tissue restriction, To increase flexibility/ROM IF ES: Yes Cryotherapy (ice pack, ice massage): Yes For the Purpose of:: To decrease pain, To increase ROM, To improve nutrient delivery to tissue, To increase oxygenation perfusion, To improve muscle performance and motor function Please do not hesitate to contact me at [phone] by phone or if you have questions or concerns regarding this new plan of care! Sincerely, Mau Brock DPT
--- NOTE | 2020-12-27 12:35 | HP.PTREVAL ---
Dr. Wilbert Bush MD, It has been my pleasure to treat LC MCGEE over the last 21 visits for L Complete Rotator Cuff Tear Repair 09/21/20. Please see the progress note below for an update on the physical therapy plan of care! Subjective: Pt. reports being 85% better overall. He has been release by physician at this point in time, but would like him to work on full ROM and progress strengthening as needed. He has tried riding hi bike again without issues. Objective/Function: L shoulder ROM: flexion 175deg, abd 170deg, functional ER C5, functional IR L1. MMT: Pt. has ~4/5 strength throughout LUE. Pt. has some mild soreness with abd and flexion against resistance. He is overall doing well. He is sleeping well without issues. He is back to riding in bike without limitaitons. I would to work on strength seeing him ~1 per week progressing his HEP. Plan Plan: Progress end ROM and strengthening as tolerated. x1 per week for 4 weeks progressing HEP as able. Goals Goal 1:: LTG: Pt. will be able to actively lift his shoulder to 150 degrees to reach in cabinets above his head. (new goal: 12/20/20: Pt. to have atleast 4+/5 strength throughout LUE) Goal Time Frame: 6-8 Weeks Goal Progress: Progressing Goal 2:: LTG: Pt. will rank pain less than a 2/10 while walking without his shoulder in the sling. Goal Time Frame: 6-8 Weeks Goal Progress: Goal Met Goal 3:: LTG: Pt. will be compliant and independent with his HEP. Goal Time Frame: 2-4 Weeks Goal Progress: Goal Met Goal 4:: LTG: Pt. will be able to resume all ADL's without pain. Goal Time Frame: 6-8 Weeks Goal Progress: Progressing Goal 5:: STG: Pt. to sleep without increase in symptoms. Goal Progress: Goal Met Goal 6:: LTG: Pt. to have full AROM of L shoulder without increase in symptoms. Goal Progress: Progressing Anticipated Interventions Patient/Client Instruction: Educate patient on: Condition, Plan of Care, Risk Factors, Benefits of Fitness Program For the Purpose of:: To prevent re-injury, To improve ability to perform tasks related to life management, To improve tolerance to ADL's Therapeutic Exercise to Include: Strength training, Power training, Postural training, Passive ROM, Active ROM, Dynamic Lumbar Stabilization, Scapular Strength/Stabilization For the Purpose of:: To decrease pain, To increase ROM, To improve nutrient delivery to tissue, To increase oxygenation perfusion, To improve muscle performance and motor function, To improve ability to perform ADL's, To increase tolerance to activity/condition/position, To improve health of tissue, To decrease soft tissue restriction, To increase flexibility/ROM Manual Therapy Techniques to Include: Mobilization, Passive ROM For the Purpose of:: To decrease pain, To increase ROM, To improve nutrient delivery to tissue, To improve health of tissue, To decrease soft tissue restriction, To increase flexibility/ROM IF ES: Yes Cryotherapy (ice pack, ice massage): Yes For the Purpose of:: To decrease pain, To increase ROM, To improve nutrient delivery to tissue, To increase oxygenation perfusion, To improve muscle performance and motor function Please do not hesitate to contact me at [phone] by phone or if you have questions or concerns regarding this new plan of care! Sincerely, Mau Brock DPT
== END 2021-01-17 19:00 | disposition home or self-care (01) ==
LOC: PT 12:00
PROVIDERS: PCP Family Medicine; Referring Provider Orthopaedic Surgery; Visit Provider Orthopaedic Surgery
DX: M75.122 Complete rotator cuff tear or rupture of left shoulder, not specified as traumatic (principal)
CPT/HCPCS: 97110; 97140; 97161; 97164

== ENCOUNTER 2021-09-18 15:00 | Outpatient (RCR) | payer MEDICARE, OTHER, SELFPAY ==
--- NOTE | 2021-05-28 12:58 | HP.PTEVAL ---
Patient's Visit Information LC MCGEE is a 71 year old M referred to Physical Therapy by Dr. Wilbert Bush MD with a diagnosis of R RTC repair with biceps tenodesis DOS: 05/17/21. Date of Evaluation: 05/28/21 Physical Therapist: Mau Brock DPT - Visit Plan Frequency: 2-3x /Week Duration: 2-4 Months Plan: Start with phase I of RTC protocol. No active elbow flexion at his point. Use of ice/modalities as needed for pain control. Progress HEP as tolerated. - Subjective Pt. is here today for his initial evaluation with diagnosis of R RTC repair and biceps tenodesis. DOS 05/17/21. Pt. was helping a friend move and felt a painful pop. Pt. reports overall doing well. Minimal pain currently 07/19. No N/T. he has been icing frequently. He weaned away from pain medication on Friday. He is sleeping in recliner with sling on. He does cycle a lot and would like to get back to doing this rides upwards of 50 miles per day. He denies fever, chills, double vision. He did see physician who was pleased thus far. Pt. arrives today in [employer]ling, and is using consistently. He is hopeful to get back to all cycling and recreational activities without limitations. - Pain R shoulder Pain Intensity (Out of 10): 2 Pain Intensity Range: 0, 4 - Objective POSTURE: Pt. tends to keep R arm in guarded posture at side. He is able to let his arm hang at side without increase in symptoms. PALPATION: normal healing incision, no signs of infection. Pt. has no increased bulging in biceps region. Mild tenderness at anterior shoulder and biceps region. NEURO: normal sensation to light and sharp touch. DNT R DTR during recent surger. ROM: PROM: R shoulder: flexion 120deg, abd 108deg, ER at side 5deg. Mild tightness and soreness as limiting factor. Pt. has full R elbow ROm without increase in symptoms. Slight loss of supination secondary to pain./. MMT: LUE 5/5 throughout. DNT RUE due to recent surgery. - Balance/Special Test Scores Quick DASH Score: 65.9075 - Goals Goal 1:: LTG: Pt. to be I with HEP. Goal Time Frame: 4-6 Weeks Goal 2:: STG: Pt. to sleep throughout the night with 0-1/10 pain in R shoulder allowing for increased quality of life. Goal Time Frame: 2-4 Weeks Goal 3:: LTG: Pt. to have increased PROM to full R shoulder ROM without increase in symptoms. Goal Time Frame: 4-6 Weeks Goal 4:: LTG: pt. to have increased AROM of R shoulder to full without increase in symptoms. Goal Time Frame: 6-8 Weeks Goal 5:: STG: Pt. to have 0-1/10 pain in R shoulder at rest. Goal Time Frame: 2 Weeks - Rehabilitation Potential Physical Therapy Diagnosis: Pt. has signs and symptoms consistent with R RTC repair with biceps tenodesis. Pt. has subsequent increased pain, hypomobility, weakness and loss of function. Pt. would benefit from PT to address the above limitations progressing back to all previous levels of function. Rehabilitation Potential: Excellent - Anticipated Interventions Patient/Client Instruction: Educate patient on: Condition, Plan of Care, Risk Factors, Benefits of Fitness Program For the Purpose of:: To improve decision making, To facilitate caregiver knowledge, To improve self management, To prevent re-injury, To improve ability to perform tasks related to life management, To improve tolerance to ADL's Therapeutic Exercise to Include: Strength training, Power training, Endurance training, Body mechanics, Postural training, Flexibilty training, Passive ROM, Active ROM, Scapular Strength/Stabilization For the Purpose of:: To decrease pain, To decrease swelling/inflammation, To increase ROM, To improve nutrient delivery to tissue, To increase oxygenation perfusion, To improve muscle performance and motor function, To improve ability to perform ADL's, To increase tolerance to activity/condition/position, To improve performance and independence with ADL's, To decrease soft tissue restriction, To increase flexibility/ROM Manual Therapy Techniques to Include: Mobilization, Passive ROM, Soft tissue mobilization For the Purpose of:: To decrease pain, To decrease swelling/inflammation, To increase ROM, To improve nutrient delivery to tissue, To increase oxygenation perfusion, To improve muscle performance and motor function IF ES: Yes Cryotherapy (ice pack, ice massage): Yes Thermo therapy (hot pack): Yes For the Purpose of:: To decrease pain, To decrease swelling/inflammation, To increase ROM Thank you for the opportunity to evaluate your patient. For Medicare and Medicare HMO plans, please review the plan of care and approve it. It will need to be FAXED BACK to us at [phone] for Medicare purposes. For Medicare only, by signing this I certify the plan of care. Please let me know if there are questions or concerns regarding this plan of care. Physician Signature: Date:
--- NOTE | 2021-07-17 14:31 | HP.PTREVAL_ITS ---
Dr. Wilbert Bush MD, It has been my pleasure to treat LC MCGEE over the last 14 visits for R RTC repair with biceps tenodesis DOS: 05/17/21. Please see the progress note below for an update on the physical therapy plan of care! Subjective: Pt. reports overall doing okay. He is a little better after his last visit. He is still having some discomfort with standing wand flexion and abduction motions. He is otherwise doing well. He is to follow up with physician next week. He reports having more soreness with his R shoulder RTC repair than compared to his L. Objective/Function: I want him to add in isometrics pain free. He is to continue with his wand exercises, but use his LUE to assist with these movements. He has good ROM passively, but actively is a bit slower and cautious. Pt. is guarded with his active shoulder ROM. I would like him to slowly progress into these movement allowing for better tolerance. Pt. consents. PROM: flexion: 175deg, abd 170deg, ER at 90deg 89deg, IR at 90deg of abd 50deg. AROM: flexion 170deg cautious, abd 155deg cautious movements, functional ER C4, functional IR L4. Pt. does have slight pain at both end range ER and IR functionally. He does reports a slight painful arc with flexion and scaption. He is to use wand with as much tolerance to minimize symptoms with notion to slowly decrease LUE assistance. Pt. consents Plan Plan: Cont. with phase II, end range phase I as tolerated. Slow increase in AAROM to promote tolerance and decreased painful arc like symptoms. pt. to follow up with physician next week. Balance/Gait/Functional tests - Balance/Special Test Scores Quick DASH Score: 65.9075 Goals Goal 1:: LTG: Pt. to be I with HEP. Goal Time Frame: 4-6 Weeks Goal Progress: Goal Met Goal 2:: STG: Pt. to sleep throughout the night with 0-1/10 pain in R shoulder allowing for increased quality of life. Goal Time Frame: 2-4 Weeks Goal Progress: Goal Met Goal 3:: LTG: Pt. to have increased PROM to full R shoulder ROM without increase in symptoms. Goal Time Frame: 4-6 Weeks Goal Progress: Goal Met Goal 4:: LTG: pt. to have increased AROM of R shoulder to full without increase in symptoms. Goal Time Frame: 6-8 Weeks Goal Progress: Progressing Goal 5:: STG: Pt. to have 0-1/10 pain in R shoulder at rest. Goal Time Frame: 2 Weeks Goal Progress: Goal Met Goal 6:: LTG: pt. to have increased R shoulder strength to at least 5-/5 throughout. Anticipated Interventions Patient/Client Instruction: Educate patient on: Condition, Plan of Care, Risk Factors, Benefits of Fitness Program For the Purpose of:: To improve decision making, To facilitate caregiver knowledge, To improve self management, To prevent re-injury, To improve ability to perform tasks related to life management, To improve tolerance to ADL's Therapeutic Exercise to Include: Strength training, Power training, Endurance training, Body mechanics, Postural training, Flexibilty training, Passive ROM, Active ROM, Scapular Strength/Stabilization For the Purpose of:: To decrease pain, To decrease swelling/inflammation, To increase ROM, To improve nutrient delivery to tissue, To increase oxygenation perfusion, To improve muscle performance and motor function, To improve ability to perform ADL's, To increase tolerance to activity/condition/position, To improve performance and independence with ADL's, To decrease soft tissue restriction, To increase flexibility/ROM Manual Therapy Techniques to Include: Mobilization, Passive ROM, Soft tissue mobilization For the Purpose of:: To decrease pain, To decrease swelling/inflammation, To increase ROM, To improve nutrient delivery to tissue, To increase oxygenation perfusion, To improve muscle performance and motor function IF ES: Yes Cryotherapy (ice pack, ice massage): Yes Thermo therapy (hot pack): Yes For the Purpose of:: To decrease pain, To decrease swelling/inflammation, To increase ROM Please do not hesitate to contact me at [phone] by phone or Fax: if you have questions or concerns regarding this new plan of care! Sincerely, Mau Brock DPT
--- NOTE | 2021-07-24 16:39 | HP.PTREVAL ---
Dr. Wilbert Bush MD, It has been my pleasure to treat LC MCGEE over the last 15 visits for R RTC repair with biceps tenodesis DOS: 05/17/21. Please see the progress note below for an update on the physical therapy plan of care! Subjective: Pt. reports overall doing much better. Pt. reports no new issues. No pain today. He is to follow up with physician next at the end of the week. Objective/Function: Pt. has great AROM, basically full throughout. No pain associated. He reports sleeping well without issues. He is to follow up with physician later this week. I did given him some isometrics and light initiation of strengthening. I instructed him to go very light and work on muscular endurance rather than strenuous lifting. Pt. consents. Plan Plan: Progress per physician instructions. Balance/Gait/Functional tests - Balance/Special Test Scores Quick DASH Score: 65.9075 Goals Goal 1:: LTG: Pt. to be I with HEP. Goal Time Frame: 4-6 Weeks Goal Progress: Goal Met Goal 2:: STG: Pt. to sleep throughout the night with 0-1/10 pain in R shoulder allowing for increased quality of life. Goal Time Frame: 2-4 Weeks Goal Progress: Goal Met Goal 3:: LTG: Pt. to have increased PROM to full R shoulder ROM without increase in symptoms. Goal Time Frame: 4-6 Weeks Goal Progress: Goal Met Goal 4:: LTG: pt. to have increased AROM of R shoulder to full without increase in symptoms. Goal Time Frame: 6-8 Weeks Goal Progress: Progressing Goal 5:: STG: Pt. to have 0-1/10 pain in R shoulder at rest. Goal Time Frame: 2 Weeks Goal Progress: Goal Met Goal 6:: LTG: pt. to have increased R shoulder strength to at least 5-/5 throughout. Anticipated Interventions Patient/Client Instruction: Educate patient on: Condition, Plan of Care, Risk Factors, Benefits of Fitness Program For the Purpose of:: To improve decision making, To facilitate caregiver knowledge, To improve self management, To prevent re-injury, To improve ability to perform tasks related to life management, To improve tolerance to ADL's Therapeutic Exercise to Include: Strength training, Power training, Endurance training, Body mechanics, Postural training, Flexibilty training, Passive ROM, Active ROM, Scapular Strength/Stabilization For the Purpose of:: To decrease pain, To decrease swelling/inflammation, To increase ROM, To improve nutrient delivery to tissue, To increase oxygenation perfusion, To improve muscle performance and motor function, To improve ability to perform ADL's, To increase tolerance to activity/condition/position, To improve performance and independence with ADL's, To decrease soft tissue restriction, To increase flexibility/ROM Manual Therapy Techniques to Include: Mobilization, Passive ROM, Soft tissue mobilization For the Purpose of:: To decrease pain, To decrease swelling/inflammation, To increase ROM, To improve nutrient delivery to tissue, To increase oxygenation perfusion, To improve muscle performance and motor function IF ES: Yes Cryotherapy (ice pack, ice massage): Yes Thermo therapy (hot pack): Yes For the Purpose of:: To decrease pain, To decrease swelling/inflammation, To increase ROM Please do not hesitate to contact me at [phone] by phone or if you have questions or concerns regarding this new plan of care! Sincerely, Mau Brock DPT
--- NOTE | 2021-09-05 11:31 | HP.PTREVAL ---
Dr. Wilbert Bush MD, It has been my pleasure to treat LC MCGEE over the last 18 visits for R RTC repair with biceps tenodesis DOS: 05/17/21. Please see the progress note below for an update on the physical therapy plan of care! Subjective: Pt. reports overall doing well. He did have a two day period last week when he was pretty sore after doing some lifting. He reports taking 2 days off of activities and is doing much better. Pt. reports being HEP compliant x3 days per week. No pain or issues today. Objective/Function: Pt. has full ROM of his R shoulder at this point in time. He reports no pain with active motion. MMT: R shoulder: flexion 14#, abd 12#, ER 6.7#, IR 15#. L shoulder: flexion 18#, abd 16#, ER 14.7#, IR 21#. Pt. has ~25% weaker R shoulder than L, but is improving, He has greater Rom and is doing well with his strengthening program. I gave him a few new exercises to work on. He is focus on deltoid and ER strengthening in non painful ranges. Pt. consent., Plan Plan: I will see him in 2 weeks to monitor progression of above. Balance/Gait/Functional tests - Balance/Special Test Scores Quick DASH Score: 13.6350 Goals Goal 1:: LTG: Pt. to be I with HEP. Goal Time Frame: 4-6 Weeks Goal Progress: Goal Met Goal 2:: STG: Pt. to sleep throughout the night with 0-1/10 pain in R shoulder allowing for increased quality of life. Goal Time Frame: 2-4 Weeks Goal Progress: Goal Met Goal 3:: LTG: Pt. to have increased PROM to full R shoulder ROM without increase in symptoms. Goal Time Frame: 4-6 Weeks Goal Progress: Goal Met Goal 4:: LTG: pt. to have increased AROM of R shoulder to full without increase in symptoms. Goal Time Frame: 6-8 Weeks Goal Progress: Goal Met Goal 5:: STG: Pt. to have 0-1/10 pain in R shoulder at rest. Goal Time Frame: 2 Weeks Goal Progress: Goal Met Goal 6:: LTG: pt. to have increased R shoulder strength to at least 5-/5 throughout. Goal Progress: Progressing Anticipated Interventions Patient/Client Instruction: Educate patient on: Condition, Plan of Care, Risk Factors, Benefits of Fitness Program For the Purpose of:: To improve decision making, To facilitate caregiver knowledge, To improve self management, To prevent re-injury, To improve ability to perform tasks related to life management, To improve tolerance to ADL's Therapeutic Exercise to Include: Strength training, Power training, Endurance training, Body mechanics, Postural training, Flexibilty training, Passive ROM, Active ROM, Scapular Strength/Stabilization For the Purpose of:: To decrease pain, To decrease swelling/inflammation, To increase ROM, To improve nutrient delivery to tissue, To increase oxygenation perfusion, To improve muscle performance and motor function, To improve ability to perform ADL's, To increase tolerance to activity/condition/position, To improve performance and independence with ADL's, To decrease soft tissue restriction, To increase flexibility/ROM Manual Therapy Techniques to Include: Mobilization, Passive ROM, Soft tissue mobilization For the Purpose of:: To decrease pain, To decrease swelling/inflammation, To increase ROM, To improve nutrient delivery to tissue, To increase oxygenation perfusion, To improve muscle performance and motor function IF ES: Yes Cryotherapy (ice pack, ice massage): Yes Thermo therapy (hot pack): Yes For the Purpose of:: To decrease pain, To decrease swelling/inflammation, To increase ROM Please do not hesitate to contact me at [phone] by phone or if you have questions or concerns regarding this new plan of care! Sincerely, Mau Brock DPT
== END 2021-09-18 19:00 | disposition home or self-care (01) ==
LOC: PT 15:00
PROVIDERS: PCP Family Medicine; Referring Provider Orthopaedic Surgery; Visit Provider Orthopaedic Surgery
DX: M75.121 Complete rotator cuff tear or rupture of right shoulder, not specified as traumatic (principal)
CPT/HCPCS: 97110; 97140; 97161; 97164

== ENCOUNTER → 2021-11-07 | Outpatient (CLI) | payer MEDICARE, OTHER, SELFPAY ==
[2021-11-07 12:17] LABS: Absolute Lymphocyte Count 0.76 X10^3/uL (0.83-4.51); Absolute Neutrophil Count 3.3 X10^3/uL (2.0-7.7); Basophil# 0.03 X10^3/uL; Basophil% 0.6 % (0-1); Eosinophil# 0.13 X10^3/uL; Eosinophils% 2.8 % (0-5); Hematocrit 41.6 % (40-54); Lymphocyte # 0.76 X10^3/ul (0.83-4.51); Lymphocyte % 16.3 % (19-41); Mean Corp Hgb Conc 33.7 g/dL (32-36); Mean Corpuscular Hgb 32.5 pg (27.0-32.0); Mean Corpuscular Volume 96.5 fL (80-94); Mean Platelet Vol. 10.9 fl (6.2-12.0); Monocyte# 0.45 X10^3/uL; Monocyte% 9.7 % (0-10); NRBC Flagged by Analyzer 0 % (0-5); Neutrophil # 3.25 X10^3/uL (2.7-7.7); Platelet Count 159 K/mm3 (150-450); RBC Distribution Width CV 13.3 % (11.6-14.6); RBC Distribution Width SD 47.8 fl (35.1-43.9); Red Blood Count 4.31 M/mm3 (4.6-6.2); White Blood Count 4.7 K/mm3 (4.4-11.0)
[2021-11-07 13:06] LABS: AST(SGOT) 27 U/L (15-37); Alanine Aminotransfer ALT/SGPT 25 U/L (16-61); Albumin, Serum 3.3 g/dL (3.2-5.0); Alkaline Phosphatase 66 U/L (45-117); Anion Gap 8 (5-15); BUN 11 mg/dL (7-18); BUN/Creat Ratio 17.3 RATIO (10-20); Calcium,Total 8.6 mg/dL (8.5-10.1); Chloride 107 mmol/L (98-107); Creatinine, Serum 0.64 mg/dL (0.70-1.30); EST Glomerular Filtration Rate 132 mL/min (>60); Est Glom Filt Rate - Afr Amer 160 mL/min (>60); Globulin 3.3 g/dL (2.2-4.2); Glucose 98 mg/dL (74-106); Potassium 3.5 mmol/L (3.5-5.1); Protein, Total 6.6 g/dL (6.4-8.2); Sodium Level 142 mmol/L (136-145); Thyroid Stim Hormone (TSH) 1.06 uIU/mL (0.358-3.74)
== END | disposition home or self-care (01) ==
LOC: MTLAB 10:56
PROVIDERS: PCP Family Medicine; Referring Provider Family Medicine; Visit Provider Family Medicine
DX: I10 Essential (primary) hypertension (principal); E78.5 Hyperlipidemia, unspecified
CPT/HCPCS: 36415; 80053; 84443; 85025

== ENCOUNTER → 2022-08-13 | Outpatient (CLI) | payer MEDICARE, OTHER, SELFPAY ==
[2022-08-13 12:51] LABS: Absolute Lymphocyte Count 0.99 X10^3/uL (0.83-4.51); Absolute Neutrophil Count 2.8 X10^3/uL (2.0-7.7); Basophil# 0.03 X10^3/uL; Basophil% 0.6 % (0-1); Eosinophil# 0.19 X10^3/uL; Hematocrit 42.4 % (40-54); Lymphocyte # 0.99 X10^3/ul (0.83-4.51); Mean Corpuscular Hgb 31.9 pg (27.0-32.0); Mean Corpuscular Volume 96.6 fL (80-94); Mean Platelet Vol. 11.2 fl (6.2-12.0); Monocyte# 0.63 X10^3/uL; Monocyte% 13.4 % (0-10); NRBC Flagged by Analyzer 0 % (0-5); Neutrophil # 2.83 X10^3/uL (2.7-7.7); Neutrophil % 60.2 % (47-70); Platelet Count 180 K/mm3 (150-450); RBC Distribution Width CV 12.7 % (11.6-14.6); RBC Distribution Width SD 45.3 fl (35.1-43.9); Red Blood Count 4.39 M/mm3 (4.6-6.2); White Blood Count 4.7 K/mm3 (4.4-11.0)
[2022-08-13 13:20] LABS: ALB/GLOB Ratio 1.1 RATIO (0.9-2.4); AST(SGOT) 23 U/L (15-37); Alanine Aminotransfer ALT/SGPT 25 U/L (16-61); Albumin, Serum 3.6 g/dL (3.2-5.0); Alkaline Phosphatase 82 U/L (45-117); Anion Gap 7 (5-15); BUN 12 mg/dL (7-18); BUN/Creat Ratio 15.6 RATIO (10-20); Calcium,Total 9.3 mg/dL (8.5-10.1); Chloride 103 mmol/L (98-107); Cholesterol 142 mg/dL (200); Creatinine, Serum 0.77 mg/dL (0.70-1.30); EST Glomerular Filtration Rate 106 mL/min (>60); Est Glom Filt Rate - Afr Amer 128 mL/min (>60); Globulin 3.4 g/dL (2.2-4.2); Glucose 101 mg/dL (74-106); High Density Lipoprotein 49 mg/dL; PSA,Total - Annual Screen 0.96 ng/mL (0.00-4.00); Potassium 4.4 mmol/L (3.5-5.1); Sodium Level 140 mmol/L (136-145); Thyroid Stim Hormone (TSH) 1.46 uIU/mL (0.358-3.74); Triglycerides 81 mg/dL; Very Low Density Lipoprotein 16 mg/dL (5-40)
== END | disposition home or self-care (01) ==
LOC: BFHLAB 10:29
PROVIDERS: PCP Family Medicine; Visit Provider Family Medicine
DX: I10 Essential (primary) hypertension (principal); I25.10 Atherosclerotic heart disease of native coronary artery without angina pectoris; E78.5 Hyperlipidemia, unspecified; E04.1 Nontoxic single thyroid nodule; Z12.5 Encounter for screening for malignant neoplasm of prostate
CPT/HCPCS: 36415; 80053; 80061; 84153; 84443; 85025; G0103

== ENCOUNTER → 2023-04-09 | Outpatient (CLI) | payer MEDICARE, OTHER, SELFPAY ==
[2023-04-09 12:50] LABS: Absolute Lymphocyte Count 0.99 X10^3/uL (0.83-4.51); Absolute Neutrophil Count 3.2 X10^3/uL (2.0-7.7); Basophil# 0.04 X10^3/uL; Basophil% 0.8 % (0-1); Eosinophils% 3.9 % (0-5); Hematocrit 44.1 % (40-54); Hemoglobin 14.3 g/dL (13.0-16.5); Lymphocyte # 0.99 X10^3/ul (0.83-4.51); Lymphocyte % 19.4 % (19-41); Mean Corp Hgb Conc 32.4 g/dL (32-36); Mean Corpuscular Hgb 30.9 pg (27.0-32.0); Mean Corpuscular Volume 95.2 fL (80-94); Mean Platelet Vol. 11.4 fl (6.2-12.0); Monocyte# 0.59 X10^3/uL; Monocyte% 11.6 % (0-10); NRBC Flagged by Analyzer 0 % (0-5); Neutrophil # 3.23 X10^3/uL (2.7-7.7); Neutrophil % 63.5 % (47-70); Platelet Count 179 K/mm3 (150-450); RBC Distribution Width CV 13.2 % (11.6-14.6); RBC Distribution Width SD 46.2 fl (35.1-43.9); Red Blood Count 4.63 M/mm3 (4.6-6.2); White Blood Count 5.1 K/mm3 (4.4-11.0)
[2023-04-09 12:55] LABS: Vitamin B12 759 pg/mL (211-911)
[2023-04-09 12:57] LABS: AST(SGOT) 19 U/L (15-37); Alanine Aminotransfer ALT/SGPT 26 U/L (16-61); Albumin, Serum 3.4 g/dL (3.2-5.0); Alkaline Phosphatase 80 U/L (45-117); Anion Gap 4 (5-15); BUN 13 mg/dL (7-18); BUN/Creat Ratio 18.3 RATIO (10-20); Chloride 105 mmol/L (98-107); Cholesterol 162 mg/dL (200); Creatinine, Serum 0.71 mg/dL (0.70-1.30); EST Glomerular Filtration Rate 116 mL/min (>60); Est Glom Filt Rate - Afr Amer 140 mL/min (>60); Globulin 3.4 g/dL (2.2-4.2); Glucose 88 mg/dL (74-106); High Density Lipoprotein 48 mg/dL; Potassium 3.9 mmol/L (3.5-5.1); Protein, Total 6.8 g/dL (6.4-8.2); Sodium Level 141 mmol/L (136-145); Triglycerides 169 mg/dL; Very Low Density Lipoprotein 34 mg/dL (5-40)
== END | disposition home or self-care (01) ==
LOC: BFHLAB 08:53
PROVIDERS: PCP Family Medicine; Referring Provider Family Medicine; Visit Provider Family Medicine
DX: I10 Essential (primary) hypertension (principal); E78.5 Hyperlipidemia, unspecified; G62.9 Polyneuropathy, unspecified
CPT/HCPCS: 36415; 80053; 80061; 82607; 85025

== ENCOUNTER → 2023-05-06 | Outpatient (CLI) | payer MEDICARE, OTHER, SELFPAY ==
--- NOTE | 2023-05-06 11:03 | NEURO ---
NCS and/or EMG Patient Report Ordering Doctor: Sudarshan Boyle DATE OF SERVICE: 05/06/23 Clinical Summary: This is a 73 year old male patient presenting with complaints of numbness, tingling, and pain in both feet. Symptoms are most pronounced in the right foot. He also has been having lower back pain but no sciatic-like symptoms. This EMG/NCS was performed to evaluate for peripheral polyneuropathy and/or lumbosacral radiculopathy. Nerve Conduction Studies Summary: All SNAP's were absent bilaterally except the left superficial peroneal SNAP, which was of low amplitude. The right peroneal-EDB and bilateral tibial-AH CMAP's were of low amplitude. The tibial-AH CMAP distal latency was prolonged bilaterally. The peroneal motor conduction velocity was reduced distally bilaterally. The left tibial motor conduction velocity was reduced. Needle Examination Summary: There was a higher proportion of motor unit action potentials with reduced recruitment, increased amplitude, increased duration, and polyphasia in the bilateral L4 and L5 myotomes. 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
== END | disposition home or self-care (01) ==
LOC: PSN 08:47
PROVIDERS: PCP Family Medicine; Referring Provider Family Medicine; Visit Provider Family Medicine
DX: G62.9 Polyneuropathy, unspecified (principal); M51.37 Other intervertebral disc degeneration, lumbosacral region
CPT/HCPCS: 95886; 95910

== ENCOUNTER → 2023-10-02 | Outpatient (CLI) | payer MEDICARE, OTHER, SELFPAY ==
--- NOTE | 2023-10-02 10:28 | MRI_ITS ---
EXAM: MR LUMBAR SPINE WITHOUT INTRAVENOUS CONTRAST CLINICAL INDICATION: LBP; Bilat L4-5 radiculopathies on EMG/NCS TECHNIQUE: Multiplanar and multisequence MR images of the lumbar spine without intravenous contrast. COMPARISON: No relevant prior studies available. FINDINGS: VERTEBRAE: See below. SPINAL CORD: Normal. Normal position and signal intensity of the conus medullaris. SOFT TISSUES: Normal. DISCS/SPINAL CANAL/NEURAL FORAMINA: L1-L2: Normal. Normal disc height and morphology. Normal spinal canal and lateral recesses. Normal neuroforamina. L2-L3: Disc space narrowing. Asymmetric disc protrusion and facet arthropathy noted results in mild spinal and neural foraminal stenoses. L3-L4: Moderate disc space narrowing. Broad-based disc protrusion, ligamentous hypertrophy and facet arthropathy results in moderate spinal and neural foraminal stenoses. L4-L5: Mild anterior listhesis. Mild to moderate disc space narrowing. Disc osteophyte complex, ligamentous hypertrophy and facet arthropathy results in moderate spinal and neural foraminal stenoses. L5-S1: Minimal disc space narrowing. Mild anterior listhesis of L5 on S1. Broad-based disc protrusion and facet arthropathy results in mild spinal stenosis and moderate right and mild left neural foraminal narrowing. MRI/Spine Lumbar (Routine) IMPRESSION: Multilevel spinal and neural foraminal stenoses related to disc protrusion and facet arthropathy as described above. Electronically Signed: Wilfred Yang MD at 9:47 EDT ,
== END | disposition home or self-care (01) ==
LOC: MRI 10:25
PROVIDERS: PCP Family Medicine; Referring Provider Psychiatry & Neurology Neurology; Visit Provider Psychiatry & Neurology Neurology
DX: M54.50 Low back pain, unspecified (principal); M54.16 Radiculopathy, lumbar region
CPT/HCPCS: 72148

== ENCOUNTER → 2023-10-03 | Outpatient (CLI) | payer MEDICARE, OTHER, SELFPAY ==
[2023-10-03 07:11] LABS: Hemoglobin 15.7 g/dL (13.0-16.5); Mean Corp Hgb Conc 34.9 g/dL (32-36); Mean Corpuscular Hgb 32.1 pg (27.0-32.0); Mean Platelet Vol. 10.5 fl (6.2-12.0); Platelet Count 171 K/mm3 (150-450); RBC Distribution Width CV 12.9 % (11.6-14.6); RBC Distribution Width SD 43.4 fl (35.1-43.9); Red Blood Count 4.89 M/mm3 (4.6-6.2); White Blood Count 5.5 K/mm3 (4.4-11.0)
[2023-10-03 07:52] LABS: ALB/GLOB Ratio 0.9 RATIO (0.9-2.4); AST(SGOT) 24 U/L (15-37); Alanine Aminotransfer ALT/SGPT 22 U/L (16-61); Albumin, Serum 3.3 g/dL (3.2-5.0); Alkaline Phosphatase 81 U/L (45-117); Anion Gap 5 (5-15); BUN 10 mg/dL (7-18); Calcium,Total 8.5 mg/dL (8.5-10.1); Chloride 107 mmol/L (98-107); Creatinine, Serum 0.72 mg/dL (0.70-1.30); EST Glomerular Filtration Rate 115 mL/min (>60); Est Glom Filt Rate - Afr Amer 139 mL/min (>60); Globulin 3.5 g/dL (2.2-4.2); Glucose 106 mg/dL (74-106); Potassium 3.6 mmol/L (3.5-5.1); Protein, Total 6.8 g/dL (6.4-8.2); Sodium Level 140 mmol/L (136-145); Thyroid Stim Hormone (TSH) 1.91 uIU/mL (0.358-3.74)
[2023-10-03 07:56] LABS: Vitamin B12 839 pg/mL (211-911)
[2023-10-03 08:20] LABS: Hemoglobin A1c 5.3 % (3.8-5.6)
== END | disposition home or self-care (01) ==
LOC: LAB 06:48
PROVIDERS: PCP Family Medicine; Referring Provider Psychiatry & Neurology Neurology; Visit Provider Psychiatry & Neurology Neurology
DX: G62.9 Polyneuropathy, unspecified (principal); R73.9 Hyperglycemia, unspecified; M54.50 Low back pain, unspecified; E78.5 Hyperlipidemia, unspecified
CPT/HCPCS: 36415; 80053; 82607; 82746; 83036; 83883; 84425; 84443; 85027

== ENCOUNTER → 2024-04-12 | Outpatient (CLI) | payer MEDICARE, OTHER, SELFPAY ==
--- OUTSIDE RECORDS SUMMARY | 2024-04-12 17:53 | XMS RPT_ITS | CCD ---
Author Organization [facility] Care Team Providers Care Medical Reimbursement Manager Name Role Phone Wilbert Bush MD Unavailable Allergies Allergy Classification Reported Allergen(s) Allergy Type Date of Onset Reaction(s) Facility (1 source) Cinnamon Preparation; Translations: [CINNAMON] Drug Allergy 08-07-2020 [facility] Work Phone: (1 source) olmesartan Drug Allergy 08-07-2020 [facility] Work Phone: (1 source) MOLASSES; Translations: [MOLASSES] food allergy 08-07-2020 [facility] Work Phone: Medications Completed/Discontinued Medications Medication Drug Class(es) Dates Sig (Normalized) Sig (Original) amLODIPine 5 mg oral tablet (1 source) Dihydropyridine Calcium Channel Kirstie Start: 08-07-2020 take 1 tablet by mouth once daily AMLODIPINE BESYLATE 5 MG TABS 1 tablet by mouth once a day amlodipine [id number] Heather Maldonado AT aspirin 81 mg delayed release oral tablet (1 source) Platelet Aggregation Inhibitor, Nonsteroidal Anti-inflammatory Drug Start: 08-07-2020 take 1 tablet by mouth once daily ASPIRIN EC 81 MG TBEC 1 tablet by mouth once a day aspirin [id number] Heather Maldonado AT atorvastatin 40 mg oral tablet (1 source) HMG-CoA Reductase Inhibitor Start: 08-07-2020 take 1 tablet by mouth once daily ATORVASTATIN CALCIUM 40 MG TABS 1 tablet by mouth once a day atorvastatin [id number] Heather Maldonado AT calcium polycarbophil 625 mg oral tablet (1 source) Start: 08-07-2020 take 1 tablet by mouth twice daily FIBER 625 MG TABS 1 tablet by mouth twice a day calcium polycarbophil [id number] Heather Maldonado AT ferrous sulfate 325 mg oral tablet (1 source) Start: 08-07-2020 take 1 tablet by mouth every other day FERROUS SULFATE 325 (65 Fe) MG TABS 1 tablet by mouth every other day ferrous sulfate [id number] Heather Maldonado AT magnesium oxide 250 mg oral tablet (1 source) Start: 08-07-2020 take 1 tablet by mouth once daily MAGNESIUM OXIDE -MG SUPPLEMENT 250 MG TABS 1 tablet by mouth once a day magnesium oxide [id number] Heather Maldonado AT metoprolol tartrate 50 mg oral tablet (1 source) beta-Adrenergic Kirstie Start: 08-07-2020 take 1 tablet by mouth once daily METOPROLOL TARTRATE 50 MG TABS 1 tablet by mouth once a day metoprolol tartrate [id number] Heather Maldonado AT kdaygekeikhg-xgo-zv on-fa-vit k (1 source) Start: 08-07-2020 take 1 tablet by mouth once daily MULTIVITAMIN ADULT (MINERALS) TABS 1 tablet by mouth once a day kxcajsntwqjg-sir-e liliam-fa-vit k [id number] Heather Maldonado AT omega-3 acid ethyl esters (halfway) 1000 mg oral capsule (1 source) Start: 08-07-2020 take 2 capsules by mouth once daily JGWZI-5-[id number] ETHYL ESTERS 1 GM CAPS 2 capsule by mouth once a day omega-3 acid ethyl esters [id number] Heather Maldonado AT omeprazole 40 mg delayed release oral capsule (1 source) Proton Pump Inhibitor Start: 08-07-2020 take 1 capsule by mouth once daily OMEPRAZOLE 40 MG CPDR 1 capsule by mouth once a day omeprazole [id number] Heather Maldonado AT potassium chloride 10 meq extended release oral tablet (1 source) Start: 08-07-2020 take 1 tablet by mouth twice daily POTASSIUM CHLORIDE ER 10 MEQ CR-TABS 1 tablet by mouth twice a day potassium chloride [id number] Heather Maldonado AT Problems Problem Classification Problem Date Documented Da te Episodic/Chronic Other connective tissue disease (1 source) Complete rotator cuff tear or rupture of right shoulder, not specified as traumatic; Translations: [Complete rupture of rotator cuff] Onset: 04-18-2021 04-18-2021 Episodic Other connective tissue disease (1 source) Complete rotator cuff tear or rupture of left shoulder, not specified as traumatic; Translations: [Complete rupture of rotator cuff] Onset: 08-08-2020 08-08-2020 Episodic Unclassified (1 source) Problem Results Test Name Value Interpretation Reference Range Facil ity Clinical Summary: Kevin gomez 07-27-2021 [facility] OP Visit Invalid Interpretation Code [facility] Work Phone: Vital Signs Date Time Vital Sign Value Performing Clinician Facility NEGATED: Highlighted [id number] 13:02-0500 Body height 167.64 cm Wendy Evy AT [facility] Work Phone: NEGATED: Highlighted [id number] 13:02-0500 Body height 168 cm Wendy Evy AT [facility] Work Phone: NEGATED: Highlighted [id number] 13:02-0500 Body mass index (BMI) [Ratio] 29.97 kg/m2 Wendy Evy AT [facility] Work Phone: NEGATED: Highlighted [id number] 13:02-0500 Body weight 83.92 kg Wendy Evy AT [facility] Work Phone: NEGATED: Highlighted [id number] 13:02-0500 Body weight 84 kg Wendy Evy AT [facility] Work Phone: Procedures Date Procedure Procedure Detail Performing Clinician Start: 07-27-2021 End: 07-27-2021 BP scrn no perf at interval Wilbert Bush MD Work Phone: Start: 07-27-2021 End: 07-27-2021 Calc BMI abv up croby f/u Wilbert Bush MD Work Phone: Start: 07-27-2021 End: 07-27-2021 Current tobacco non-user cad cap copd pv dm Wilbert Bush MD Work Phone: Start: 07-27-2021 End: 07-27-2021 Docrev cur meds by elig clin Wilbert Bush MD Work Phone: Start: 07-27-2021 End: 07-27-2021 Pain doc pos and plan Wilbert Bush MD Work Phone: Start: 07-27-2021 End: 07-27-2021 Patient encounter procedure Wilbetr Bush MD Work Phone: NEGATED: Highlighted rowStart: 07-27-2021 End: 07-27-2021 Documentation of current medications Wendy Ratliff AT Plan of Treatment Date Care Activity Detail Author Start: 07-27-2021 End: 07-27-2021 Patient encounter procedure Appointment [facility] Work Phone: Social History Date Type Detail Facility Start: 07-27-2021 End: 07-27-2021 Assertion Unknown if ever smoked [facility] Work Phone: Evaluation note Note Date & Type Note Facility Evaluation note There may be informa tion available, but it has not been provided by the sender. [facility] Work Phone: Instructions Note Date & Type Note Facility Instructions CompletedPatient advised to follow-up with Primary Care Physician for BMI management. [facility] Work Phone: Chief Complaint Chief Complaint Description Start Date right shoulder post RIGHT SH OULDER ARTHROSCOPIC ROTATOR CUFF REPAIR BICEPS TENODESIS on 05/17/2021 Preliminary chief co mplaint data, not yet signed by the author as of Advance Directives There may be information available, but it has not been provided by the sender. Family History There may be information available, but it has not been provided by the sender. Additional Source Comments Reason for Visit (unrecogniz ed section and content) Reason For Visit Description Postop - subsequent visit Preliminary reason f or visit data, not yet signed by the author as of right shoulder post RIGHT SH OULDER ARTHROSCOPIC ROTATOR CUFF REPAIR BICEPS TENODESIS on 05/17/2021 FOR RECORDS PERTAINING TO PATIENTS WHO ARE OR HAVE BEEN ENROLLED IN A CHEMICAL DEPENDENCY/SUBSTANCEABUSE PROGRAM, SOME INFORMATION MAY BE OMITTED. This clinical summary was aggregated from multiple sources. Caution should be exercised in using it in the provision of clinical care. This summary normalizes information from multiple sources, and as a consequence, information in this document may materially change the coding, format and clinical context of patient data. In addition, data may be omitted in some cases. CLINICAL DECISIONS SHOULD BE BASED ON THE PRIMARY CLINICAL RECORDS. [employer] [facility]. provides no warranty or guarantee of the accuracy or completeness of information in this document.
[2024-04-12 18:44] LABS: Cholesterol 136 mg/dL (200); High Density Lipoprotein 55 mg/dL; PSA,Total - Annual Screen 1.09 ng/mL (0.00-4.00); Triglycerides 74 mg/dL; Very Low Density Lipoprotein 15 mg/dL (5-40)
== END | disposition home or self-care (01) ==
LOC: BFHLAB 14:09
PROVIDERS: PCP Family Medicine; Referring Provider Family Medicine; Visit Provider Family Medicine
DX: I25.10 Atherosclerotic heart disease of native coronary artery without angina pectoris (principal); E78.5 Hyperlipidemia, unspecified; Z12.5 Encounter for screening for malignant neoplasm of prostate
CPT/HCPCS: 36415; 80061; 84153; G0103

== ENCOUNTER 2024-05-31 06:45 | Day surgery (SDC) | payer MEDICARE, OTHER, SELFPAY ==
[2024-05-31] VITALS (7 sets, daily range): BP systolic 104–137; BP diastolic 69–80; PULSE 60–67; RESP 16; TEMP 36.4–37.4; O2SAT 97–100; BMI 30.2
--- NOTE | 2024-05-31 07:01 | PCM.PRE.AN2 ---
ASA Classification* ASA Classification ASA Classification: 2 Assessment & Plan Anesthesia* Anesthesia Assessment Anesthesia Assessment: Discussed sedation and/or anesthesia options, risks, benefits, and alternatives with patient/parents/legal guardian/POA. Questions invited. The patient/parents/legal guardian/POA seems to understand and agrees to proceed with anesthesia plan. Reviewed the physical assessment, medical history, allergy history and patient home medications list prior to surgery/procedure/anesthetic and documented any changes. Performed airway and anesthesia risk assessments. Anesthesia Type Anesthesia Type: MAC Anesthesia Focused Assessment* Airway Assessment Mouth opens: >3 cm Mallampati Score: II Focused Labs Anesthesia Preop lab: CBC WBC 5.5 K/mm3 (4.4-11.0) 10/03/23 06:49 RBC 4.89 M/mm3 (4.6-6.2) 10/03/23 06:49 Hgb 15.7 g/dL (13.0-16.5) 10/03/23 06:49 Hct 45.0 % (40-54) 10/03/23 06:49 Plt Count 171 K/mm3 (150-450) 10/03/23 06:49 CHEMISTRY Potassium 3.6 mmol/L (3.5-5.1) 10/03/23 06:49 Sodium 140 mmol/L (136-145) 10/03/23 06:49 BUN 10 mg/dL (7-18) 10/03/23 06:49 Creatinine 0.72 mg/dL (0.70-1.30) 10/03/23 06:49 Glucose 106 mg/dL (74-106) 10/03/23 06:49 POC Glucose 102 mg/dL (70-110) 05/31/19 03:22 TSH 1.91 uIU/mL (0.358-3.74) 10/03/23 06:49 COAG PT 12.9 SECONDS (11.7-14.9) 03/13/16 13:04 Pre-Assessment Diagnosis/Proposed Procedure Planned Operative Procedure(s): CSCOPE Anesthesia History 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 When Was Last Pacemaker Check QUESTION #4 FULL TEXT: You/Your Family Experience fever (hyperthermia) with Anesthesia Last Oral Intake Last Oral intake: Last Oral Intake NPO since Meds taken in AM with sips of water? Meds patient instructed to take am of surgery PONV PONV - insurance sales supervisor: PONV - insurance sales supervisor Female No 05/26/24 12:36 HX of Motion Sickness No 05/26/24 12:36 HX of N/V After Surgery No 05/26/24 12:36 Non-Smoker Yes 05/26/24 12:36 Duration of Surgery greater No 05/26/24 12:36 than 60 minutes Number of Risk Factors 1 05/26/24 12:36 PONV Score Low Risk 05/26/24 12:36 Height & Weight Height & Weight: Anesthesia: Height & Weight Height 5 ft 6 in 04/13/24 14:08 Respiratory Assessment Respiratory Assessment - insurance sales supervisor: Respiratory Tract Infection Hx - insurance sales supervisor Hx Respiratory Tract Infection No 05/26/24 12:36 STOP Sleep Apnea STOP Sleep Apnea - insurance sales supervisor: STOP Sleep Apnea - insurance sales supervisor Hx Hypertension Yes: CONTROLLED WITH MED 05/26/24 12:36 Hx Sleep Apnea Yes: DISAGNOSED, NEVER F/U 05/26/24 12:36 CPAP Yes: NON COMPLIANT 05/26/24 12:36 BIPAP No 05/26/24 12:36 Do you snore loudly (louder than talking or can be heard Do you often feel tired/ fatigued/ sleepy during daytime? Has anyone observed you stop breathing during sleep? STOP Results Positive 05/26/24 12:36 QUESTION #5 FULL TEXT : Do you snore loudly (louder than talking or can be heard through closed doors)? 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 Specify any problems Hx of Preganancy in last 3 N/A 05/26/24 12:36 Months Nurse Filling Out Transfusion NBUCHER 05/26/24 12:36 & Questions: Date: 05/26/24 05/26/24 12:36 Time: 12:38 05/26/24 12:36 Patient unable to answer at this time (ie. confused, unrespo /Reproduction History /Reproductive History - insurance sales supervisor: /Reproductive Hx- insurance sales supervisor Hx Now No 05/26/24 12:36 Gestational Age (in weeks): EDC: Hx Hx Para Hx Section SAB No 05/26/24 12:36 PFSH Medical History Wears glasses Low iron High cholesterol Back pain Heartburn Gastric reflux CPAP (continuous positive airway pressure) dependence Sleep apnea History of stress test (~2011) History of kidney stones Family history of colon cancer in father Personal history of colonic polyps Home Medications ?Medication ?Instructions ?Recorded ?Last Taken ?Type fish oil-dha-epa 1,200 mg-144 2 ea PO DAILY 03/12/16 Unknown History mg-216 mg capsule magnesium 250 mg tablet 250 mg PO DAILY 03/12/16 Unknown History metoprolol tartrate 50 mg tablet 50 mg PO QHS 03/12/16 03/23/19 06:00 History multivitamin with folic acid 400 1 tab PO DAILY 03/12/16 Unknown History mcg tablet potassium chloride 10 mEq 10 meq PO BID 03/12/16 Unknown History tablet,extended release(part/cryst) psyllium husk 0.4 gram capsule 1 cap PO BID 03/12/16 Unknown History aspirin 81 mg tablet,delayed 81 mg PO DAILY 06/13/16 04/22/17 History release atorvastatin 40 mg tablet 40 mg PO QHS 08/29/18 Unknown History omeprazole 40 mg capsule,delayed 40 mg PO DAILY 05/31/19 Unknown History release ferrous sulfate 325 mg (65 mg 325 mg PO MOWEFR 09/29/23 Unknown History iron) tablet (Feosol) Allergy/AdvReac Type Severity Reaction Status Date / Time cinnamon Allergy Swelling Verified 05/26/24 12:33 molasses Allergy Swelling Verified 05/26/24 12:33 duloxetine AdvReac Tired, Verified 05/26/24 12:33 Light headed olmesartan medoxomil (From AdvReac Unknown Verified 05/26/24 12:33 Benicar) Family History Father Colon cancer Surgical History History of cataract extraction with lens replacement (~2022) History of medial meniscus repair of right knee (~1979) History of nasal surgery History of foot surgery History of repair of rotator cuff (2021) History of cystoscopy Hx of colonoscopy Social History household members: spouse number of children: 2 current occupational status: retired Smoking Status: Never smoker alcohol intake: never substance use type: does not use Review of Systems (Anesthesia) ROS Narrative System reviewed and no additional complaints, except as documented.
--- NOTE | 2024-05-31 07:18 | HP.PCM_ITS ---
HPI - General General Date of Admission: 05/31/24 Date of Service: 05/31/24 Chief Complaint: Screening colonoscopy HPI Narrative LC MCGEE, is a 74 M who presents today for screening colonoscopy. He had a colonoscopy approximately 5 years ago because of a history of polyps. He comes in for surveillance colonoscopy today. He is not have any abdominal pain. He does not have any chest pain or shortness of breath. He does have a history of obstructive sleep apnea, hypertension, elevated BMI SOCIAL reflux disease along with coronary artery disease and is on aspirin on a daily basis. [facility] Medical History Wears glasses Low iron High cholesterol Back pain Heartburn Gastric reflux CPAP (continuous positive airway pressure) dependence Sleep apnea History of stress test (~2011) History of kidney stones Family history of colon cancer in father Personal history of colonic polyps Home Medications ?Medication ?Instructions ?Recorded ?Last Taken ?Type fish oil-dha-epa 1,200 mg-144 2 ea PO DAILY 03/12/16 05/27/24 History mg-216 mg capsule magnesium 250 mg tablet 250 mg PO DAILY 03/12/16 Unknown History metoprolol tartrate 50 mg tablet 50 mg PO QHS 03/12/16 05/30/24 History multivitamin with folic acid 400 1 tab PO DAILY 03/12/16 Unknown History mcg tablet potassium chloride 10 mEq 10 meq PO BID 03/12/16 Unknown History tablet,extended release(part/cryst) psyllium husk 0.4 gram capsule 1 cap PO BID 03/12/16 05/27/24 History aspirin 81 mg tablet,delayed 81 mg PO DAILY 06/13/16 05/27/24 History release atorvastatin 40 mg tablet 40 mg PO QHS 08/29/18 Unknown History omeprazole 40 mg capsule,delayed 40 mg PO DAILY 05/31/19 05/31/24 History release ferrous sulfate 325 mg (65 mg 325 mg PO MOWEFR 09/29/23 05/27/24 History iron) tablet (Feosol) Allergy/AdvReac Type Severity Reaction Status Date / Time cinnamon Allergy Swelling Verified 05/31/24 07:05 molasses Allergy Swelling Verified 05/31/24 07:05 duloxetine AdvReac Tired, Verified 05/31/24 07:05 Light headed olmesartan medoxomil (From AdvReac Unknown Verified 05/31/24 07:05 Kristy) Family History Father Colon cancer Surgical History History of cataract extraction with lens replacement (~2022) History of medial meniscus repair of right knee (~1979) History of nasal surgery History of foot surgery History of repair of rotator cuff (2021) History of cystoscopy Hx of colonoscopy Social History household members: spouse number of children: 2 current occupational status: retired Smoking Status: Never smoker alcohol intake: never substance use type: does not use Vital Signs Vital Signs Vital Signs: 05/31/24 07:10 05/31/24 07:10 Temperature 97.6 F L Temperature Source Temporal Pulse Rate 67 Respiratory Rate 16 Respiratory Pattern Normal Blood Pressure 137/79 H Blood Pressure Mean 98 Blood Pressure Source Monitor Blood Pressure Position Semi-Fowlers Blood Pressure Location Right Arm Pulse Ox 97 Oxygen Delivery Method Room Air Weight Weight: 186 lb 15.232 oz Body Mass Index (BMI) 30.2 Physical Exam Const alert, oriented x3, no apparent distress and healthy appearing General Appearance: cooperative GI normal to inspection, nondistended, normoactive bowel sounds, soft to palpation, non-tender and non-distended Percussion: normal to percussion Rectal Exam: deferred Assessment & Plan Assessment/Plan (1) Encounter for screening for malignant neoplasm of colon: PLAN: He was explained alternatives, risk, benefits including not withstanding bleeding, infection, sepsis, perforation, need for emergent surgery and . He will have an ASA of 3.
--- NOTE | 2024-05-31 07:45 | EGD_PTH ---
PATIENT: LC MCGEE LOC: EN U#:[id number] AGE/SX: 74/M ROOM: RE05/31/[address]: Dr. James Crane DO : 1950 BED: DIS: 05/31/2024 SPEC #: [id number] RECD: 05/31/24 08:53 STATUS: ALYCIA REEsther #: [id number] BROOKS: 05/31/24 07:[address]: James Crane DEPT: SURGICAL PATHOLOGY RECD BY: Mary Lauren ENTERED: 05/31/24 12:41 SP TYPE: EGD BIOPSY OT DR: Dr. Sudarshan Boyle DO Tissues: Cecum, NOS Procedures: Surgery Specimen Level IV HEADER OPERATION: Colonoscopy with biopsy PRE-OP DIAGNOSIS: Screening TISSUE SUBMITTED: Cecal polyp MICROSCOPIC DIAGNOSIS Cecal polyp, biopsy: Fragments of tubular adenoma. SJ 06/01/2024 MICROSCOPIC DESCRIPTION Slides are reviewed. GROSS DESCRIPTION Received is one container labeled with the patient name and designated cecal polyp. The specimen consists of multiple irregular fragments of light chaudhry soft tissue that in aggregate measure 1.5 x .2 x .1 cm. The specimen is totally submitted in one cassette. /MS:cc 05/31/24 TC:1 CPT:51856
--- NOTE | 2024-05-31 08:16 | OP.COLON_ITS ---
Patient Name: Richard Hernández Procedure Date: 05/31/2024 7:47 AM Date of : 1950 Age: 74 Procedure: Colonoscopy Indications: High risk colon cancer surveillance: Personal history of colonic polyps Providers: aJmes Crane DO Referring MD: Sudarshan Boyle Medicines: Monitored Anesthesia Care Patient Profile: This is a 74 year old male. Refer to note in patient chart for documentation of history and physical. Last Colonoscopy: 5 years ago. Complications: No immediate complications. Procedure: Pre-Anesthesia Assessment: - Prior to the procedure, a History and Physical was performed, and patient medications and allergies were reviewed. The patient is competent. The risks and benefits of the procedure and the sedation options and risks were discussed with the patient. All questions were answered and informed consent was obtained. Patient identification and proposed procedure were verified by the physician in the pre-procedure area. Mental Status Examination: alert and oriented. Airway Examination: normal oropharyngeal airway and neck mobility. Respiratory Examination: clear to auscultation. CV Examination: normal. Prophylactic Antibiotics: The patient does not require prophylactic antibiotics. Prior Anticoagulants: The patient has taken no anticoagulant or antiplatelet agents except for NSAID medication. ASA Grade Assessment: II - A patient with mild systemic disease. After reviewing the risks and benefits, the patient was deemed in satisfactory condition to undergo the procedure. The anesthesia plan was to use monitored anesthesia care (MAC). Immediately prior to administration of medications, the patient was re-assessed for adequacy to receive sedatives. The heart rate, respiratory rate, oxygen saturations, blood pressure, adequacy of pulmonary ventilation, and response to care were monitored throughout the procedure. The physical status of the patient was re-assessed after the procedure. After I obtained informed consent, the scope was passed under direct vision. Throughout the procedure, the patient's blood pressure, pulse, and oxygen saturations were monitored continuously. The Colonoscope was introduced through the anus and advanced to the cecum, identified by appendiceal orifice and ileocecal valve. The colonoscopy was performed without difficulty. The patient tolerated the procedure well. The quality of the bowel preparation was adequate. The ileocecal valve, appendiceal orifice, and rectum were photographed. Scope In: 7:57:46 AM Scope Withdrawal Time 0 hours 10 minutes 35 seconds Scope Out: 8:11:44 AM Total Procedure Duration Time 0 hours 13 minutes 58 seconds Findings: The perianal and digital rectal examinations were normal. Two sessile polyps were found in the cecum. The polyps were 8 mm in size. These polyps were removed with a cold biopsy forceps. Resection and retrieval were complete. Verification of patient identification for the specimen was done. Estimated blood loss was minimal. A few small and large-mouthed diverticula were found in the recto-sigmoid colon, sigmoid colon and descending colon. Non-bleeding external and internal hemorrhoids were found during retroflexion. The hemorrhoids were Grade II (internal hemorrhoids that prolapse but reduce spontaneously). Impression: - Two 8 mm polyps in the cecum, removed with a cold biopsy forceps. Resected and retrieved. - Diverticulosis in the recto-sigmoid colon, in the sigmoid colon and in the descending colon. - Non-bleeding external and internal hemorrhoids. Recommendation: - Repeat colonoscopy in 5 years for surveillance. - Continue present medications. Procedure Code(s): --- Professional --- 96614, Colonoscopy, flexible; with biopsy, single or multiple CPT copyright 2021 [employer]. All rights reserved. The codes documented in this report are preliminary and upon food runner review may be revised to meet current compliance requirements. James Crane DO 05/31/2024 8:15:49 AM This report has been signed electronically. Number of Addenda: 0 Note Initiated On: 05/31/2024 7:47 AM
--- NOTE | 2024-05-31 08:16 | OP.CCLET_ITS ---
05/31/2024 Sudarshan Boyle [address] [facility] [place] [address] Re : Colonoscopy procedure for Richardchristina Hernández Dear Dr. Boyle This procedure was performed on Friday, May 31, 2024. My impressions and recommendations are as follows: Impressions : - Two 8 mm polyps in the cecum, removed with a cold biopsy forceps. Resected and retrieved. - Diverticulosis in the recto-sigmoid colon, in the sigmoid colon and in the descending colon. - Non-bleeding external and internal hemorrhoids. Recommendations : - Repeat colonoscopy in 5 years for surveillance. - Continue present medications. My findings are described in the full procedure note, which is enclosed. If I can be of further assistance, please feel free to contact me at . Sincerely, James Crane, 05/31/2024 8:15:49 AM This report has been signed electronically.
--- NOTE | 2024-05-31 08:18 | PCM.POST.ANE ---
Anesthesia: Postop Eval I Current Vital Signs Temperature: 98.6 F Pulse Rate: 61 Blood Pressure: 104/76 Respiratory Rate: 16 Pulse Ox: 99 Oxygen Delivery Method: Room Air Assessment Airway patent: Yes Spontaneous unlabored respirations: Yes Mental status: Awake and Calm nausea: No Vomiting: No Anesthesia Complication: No Fluid Hydration Crystalloid volume administer (ml): 40 Total IV fluid infused: 40 Progress Note Anesthesia document: Postop Eval 1 completed: Yes
--- NOTE | 2024-05-31 08:26 | PCM.POSTANE2 ---
Anesthesia Postop Eval I Sum Postop Eval Completion status Anesthesia document: Postop Eval 1 completed: Yes Anesthesia Postop Eval I Summary Anesthesia Postop Eval I Summary: Anesthesia Postop Eval I: Assessment Summary Airway patent Yes 05/31/24 08:19 [email or web address] Spontaneous unlabored Yes 05/31/24 08:19 [email or web address] respirations Mental status Awake,Calm 05/31/24 08:19 [email or web address] nausea No 05/31/24 08:19 [email or web address] Vomiting No 05/31/24 08:19 [email or web address] Anesthesia Postop Eval I: Fluid Summary Crystalloid volume administer 40 05/31/24 08:19 [email or web address] (ml) Colloids volume administered ( ml) Blood Product volume administered (ml) Total IV fluid infused 40 05/31/24 08:19 [email or web address] Anesthesia Postop Eval I: Summary Notes Anesthesia Complication No 05/31/24 08:19 [email or web address] Anesthesia Complication Comment: Post-operative progress note Anesthesia: Postop Eval II Evaluation Mental status: Awake Pain Level: 0 nausea: No Vomiting: No
== END 2024-05-31 08:59 | disposition home or self-care (01) ==
LOC: EN 06:47 → AC 06:48
PROVIDERS: PCP Family Medicine; Referring Provider Family Medicine; Visit Provider Internal Medicine Gastroenterology
PROC: 0DJD8ZZ Inspection of Lower Intestinal Tract, Via Natural or Artificial Opening Endoscopic (ICD-10-PCS; CPT 45378; principal; 2024-05-31 07:40)
DX: Z12.11 Encounter for screening for malignant neoplasm of colon (principal); I25.10 Atherosclerotic heart disease of native coronary artery without angina pectoris; E78.00 Pure hypercholesterolemia, unspecified; I10 Essential (primary) hypertension; K57.30 Diverticulosis of large intestine without perforation or abscess without bleeding; Z80.0 Family history of malignant neoplasm of digestive organs; Z86.0100 Personal history of colon polyps, unspecified; Z79.82 Long term (current) use of aspirin; K21.9 Gastro-esophageal reflux disease without esophagitis; Z79.899 Other long term (current) drug therapy; K64.1 Second degree hemorrhoids; K64.4 Residual hemorrhoidal skin tags; D12.0 Benign neoplasm of cecum
CPT/HCPCS: 45380; 88305; A4216; J2405

== ENCOUNTER → 2024-10-18 | Outpatient (CLI) | payer MEDICARE, OTHER, SELFPAY | END | disposition home or self-care (01) | LOC: PSN 08:49 | PROVIDERS: PCP Family Medicine; Referring Provider Family Medicine; Visit Provider Family Medicine | DX: I49.9 Cardiac arrhythmia, unspecified (principal) | CPT/HCPCS: 93225; 93226 ==

== ENCOUNTER → 2024-12-23 | Outpatient (CLI) | payer MEDICARE, OTHER, SELFPAY ==
--- NOTE | 2024-12-23 07:00 | ECHOD_ITS ---
Reason For Study Reason For Study: ASHD Procedure This was a 2D Doppler, Color Flow transthoracic echocardiogram. Exam performed in department. Left Ventricle Normal size and thickness. The LV ejection fraction is 65 %. Normal diastology for age. Right Ventricle Normal right ventricle. Atria The left atrium is mildly enlarged. Normal right atrium. Mitral Valve Mild mitral valve annular calcification. Mild mitral valve regurgitation. Tricuspid Valve Trivial tricuspid valve insufficiency. Normal pulmonary artery pressure. Aortic Valve Mildly calcified aortic valve. Aortic valve sclerosis without stenosis. Trivial to mild aortic valve regurgitation. Pulmonic Valve The pulmonic valve is not well visualized. Great Vessels Normal sized aortic root. Pericardium/Pleural No pericardial effusion. MMode/2D Measurements & Calculations LVIDd: 5.3 cm IVSd: 1.1 cm LVOT diam: 2.1 cm LVIDs: 3.5 cm LVPWd: 1.1 cm LVOT area: 3.4 cm2 RVDd: 3.9 cm FS: 34.7 % Ao root diam: 3.4 cm LAV(MOD-bp): 70.4 ml LVAd ap4: 32.7 cm2 LAV(MOD-bp) Indexed: 36.4 ml/m2 LVLd ap4: 8.8 cm LAV(MOD-sp2): 74.3 ml EDV(MOD-sp4): 100.7 ml LAV(MOD-sp4): 66.9 ml EDV(sp4-el): 102.7 ml LVAs ap4: 15.3 cm2 LVLs ap4: 6.8 cm ESV(MOD-sp4): 31.2 ml ESV(sp4-el): 29.2 ml EF(MOD-sp4): 69.0 % EF(sp4-el): 71.6 % LVAd ap2: 27.8 cm2 SV(MOD-sp4): 69.5 ml SV(MOD-sp2): 51.6 ml LVLd ap2: 8.1 cm SI(MOD-sp4): 35.9 ml/m2 SI(MOD-sp2): 26.7 ml/m2 EDV(MOD-sp2): 78.6 ml EDV(sp2-el): 80.7 ml LVAs ap2: 14.4 cm2 LVLs ap2: 6.8 cm ESV(MOD-sp2): 27.0 ml ESV(sp2-el): 25.8 ml EF(MOD-sp2): 65.6 % SV(sp4-el): 73.5 ml LA dimension(2D): 4.2 cm LA A4 area: 21.5 cm2 RA A4 area: 14.2 cm2 TAPSE: 2.5 cm Time Measurements MV dec time: 0.28 sec Doppler Measurements & Calculations MV E max ray: 61.6 cm/sec Lat Peak E' Ray: 10.8 cm/sec Med Peak E' Ray: 7.1 cm/sec MV A max ray: 73.9 cm/sec E/E' lat: 5.7 E/E' med: 8.7 MV E/A: 0.83 MV V2 max: 88.0 cm/sec MV P1/2t max ray: 63.0 cm/sec Ao V2 max: 195.5 cm/sec MV max P.1 mmHg MV P1/2t: 92.4 msec Ao max P.3 mmHg MV V2 mean: 43.2 cm/sec Ao V2 mean: 127.5 cm/sec MV mean P.90 mmHg MV dec slope: 199.6 cm/sec2 Ao mean P.5 mmHg MV V2 VTI: 26.1 cm MVA(P1/2t): 2.4 cm2 Ao V2 VTI: 37.7 cm AV (velocity ratio): 0.61 MVA(VTI): 3.0 cm2 SAYRA(I,D): 2.1 cm2 SAYRA(V,D): 1.9 cm2 AI max ray: 303.7 cm/sec LV V1 max: 109.9 cm/sec SV(LVOT): 79.0 ml AI max P.9 mmHg LV V1 max P.8 mmHg AI dec slope: 116.5 cm/sec2 LV V1 mean P.5 mmHg AI P1/2t: 763.3 msec LV V1 mean: 74.4 cm/sec LV V1 VTI: 23.2 cm PA V2 max: 121.9 cm/sec PI dec slope: 129.4 cm/sec2 TR max ray: 267.6 cm/sec PA V2 mean: 84.3 cm/sec TR max P.6 mmHg ECHO/Echo Complete Interpretation Summary The LV ejection fraction is 65 %. The left atrium is mildly enlarged. Mild mitral valve annular calcification. Mild mitral valve regurgitation. Mildly calcified aortic valve. Aortic valve sclerosis without stenosis. Trivial to mild aortic valve regurgitation. Ordering Physician: Robi Iverson Referring Physician: Sudarshan Boyle Performed By: Maricel Driver, ELSY, RVT
--- OUTSIDE RECORDS SUMMARY | 2024-12-23 07:10 | XMS RPT_ITS | CCD ---
Author Organization [facility] Care Team Providers Care Manager Of Customer Billing Name Role Phone Eleazar GORDON, Wilbert Christie Unavailable Dr. Sudarshan Boyle Primary Care Provider Dr. Sudarshan Boyle Referring Provider Dr. Sudarshan Boyle Other Provider Dr. Yahaira Walton Attending Provider [phone] Sudarshan Boyle Primary Care Provider Dr. Sudarshan Boyle Referring Provider Dr. Darryl Miranda Attending Provider Dr. Sudarshan Boyle DO Primary Care Provider Dr. Sudarshan Boyle DO Referring Provider Dr. Reese Guillory MD Attending Provider Dr. Tim Hernandez MD Attending Provider [phone] Josue Mae Attending Provider [phone] Dr. Sudarshan Boyle DO Attending Provider Dr. Sudarshan Boyle DO Primary Care Provider Dr. Sudarshan Boyle DO Referring Provider Dr. Yanci Anderson MD Attending Provider Lobo Torres Attending Provider Dr. Robi Iverson MD Attending Provider Sudarshan Boyle Primary Care Unavailable Vi Soni Attending Unavailable Sudarshan Boyle Primary Care Unavailable Royce, James Attending Unavailable Sudarshan Boyle Referring Unavailable Sudarshan Boyle Attending Unavailable Tamar, Sudarshan Referring Unavailable Tamar, Sudarshan Primary Care Unavailable Robi Iverson Referring Unavailable Robi Iverson Attending Unavailable Tamar, Sudarshan Primary Care Unavailable Robi Iverson Referring Unavailable Kishor, Robi Attending Unavailable Tamar, Sudarshan Primary Care Unavailable Tamar, Sudarshan Primary Care Unavailable Tamar, Sudarshan Attending Unavailable Tamar, Sudarshan Referring Unavailable Yanci Anderson Attending Unavailable Tamar, Sudarshan Referring Unavailable Tamar, Sudarshan Primary Care Unavailable FriendJames Consulting Unavailable FriendJames Attending Unavailable Tamar, Sudarshan Referring Unavailable Tamar, Sudarshan Primary Care Unavailable Robi Iverson Attending Unavailable Tamar, Sudarshan Referring Unavailable Tamar, Sudarshan Primary Care Unavailable Reese Guillory Attending Unavailable Tamar, Sudarshan Referring Unavailable Tamar, Sudarshan Primary Care Unavailable Tim Hernandez Attending Unavailable Tamar, Sudarshan Primary Care Unavailable Josue Mae Attending Unavailable Tamar, Sudarshan Referring Unavailable Tamar, Sudarshan Primary Care Unavailable Lobo Torres Attending Unavailable Tamar, Sudarshan Referring Unavailable Tamar, Sudarshan Primary Care Unavailable Allergies Allergy Classification Reported Allergen(s) Allergy Type Date of Onset Reaction(s) Facility (12 sources) Cinnamon Preparation; Translations: [CINNAMON] Drug Allergy 0 Swelling [facility] Work Phone: (1 source) olmesartan Drug Allergy 1 [facility] Work Phone: (12 sources) MOLASSES; Translations: [MOLASSES] food allergy 0 Swelling [facility] Work Phone: (11 sources) olmesartan; Translations: [olmesartan medoxomil] Drug Allergy 0 Unknown [facility] (3 sources) DULoxetine Drug Allergy 5 Tired, Light headed [facility] (1 source) DULoxetine Drug Allergy 5 [facility] Repository Medications Current Medications Medication Drug Class(es) Dates Sig (Normalized) Sig (Original) amLODIPine 5 mg oral tablet (17 sources) Dihydropyridine Calcium Channel Kirstie Start: 09-17-2024 take 1 tablet by mouth once daily Amlodipine 5 mg tablet Active 5 mg PO daily September 17, 2024 12:00am Start: 04-13-2024 End: 05-26-2024 take 2 tablets by mouth once daily Amlodipine 5 mg tablet Discontinued 10 mg PO DAILY April 13, 2024 3:02pm May 26, 2024 1:35pm Start: 03-18-2019 End: 04-13-2024 take 1 tablet by mouth once daily Amlodipine 5 MG tablet Discontinued 5 mg PO DAILY March 18, 2019 12:00am April 13, 2024 3:04pm apixaban 5 mg oral tablet (1 source) Factor Xa Inhibitor Start: 12-09-2024 take 1 tablet by mouth twice daily Apixaban (Eliquis) 5 mg tablet Active 5 mg PO TWICE A DAY 60 December 09, 2024 12:00am atorvastatin 40 mg oral tablet (20 sources) HMG-CoA Reductase Inhibitor Start: 03-12-2016 End: 08-29-2018 take 1 tablet by mouth at bedtime Atorvastatin 40 mg tablet Active 40 mg PO AT BEDTIME August 29, 2018 11:04am biotin 10 mg oral tablet (3 sources) Start: 09-17-2024 take 1 tablet by mouth once daily Biotin 10 mg tablet Active 10 mg PO daily September 17, 2024 12:00am DULoxetine 60 mg delayed release oral capsule (13 sources) Serotonin and Norepinephrine Reuptake Inhibitor Start: 09-17-2024 Duloxetine 60 mg capsule,delayed release(DR/EC) Active mg PO September 17, 2024 12:00am Start: 09-29-2023 End: 10-07-2023 take 1 capsule by mouth at bedtime Duloxetine 30 mg capsule,delayed release(DR/EC) Discontinued 30 mg PO AT BEDTIME 7 0 September 29, 2023 12:00am October 07, 2023 4:09pm Start: 09-29-2023 End: 10-07-2023 take 1 capsule by mouth once daily at bedtime Duloxetine 60 mg capsule,delayed release(DR/EC) Discontinued 60 mg PO AT BEDTIME 90 1 September 29, 2023 12:00am October 07, 2023 4:09pm Begin after completing one week course of duloxetine 30mg nightly. ferrous sulfate 325 mg oral tablet (6 sources) Start: 09-29-2023 take 1 tablet by mouth three times weekly Ferrous Sulfate (Feosol) 325 mg (65 mg iron) tablet Active 325 mg PO MOWESeptember 29, 2023 12:00am three times a week Start: 09-29-2023 take 1 tablet by ginger once daily Ferrous Sulfate (Feosol) 325 mg (65 mg iron) tablet Active 325 MG PO DAILY September 29, 2023 12:00am three times a week Start: 08-07-2020 take 1 tablet by ginger every other day FERROUS SULFATE 325 (65 Fe) MG TABS 1 tablet by mouth every other day ferrous sulfate [id number] Heather Maldonado AT Fish Oil-Dha-Epa (7 sources) Start: 03-12-2016 Fish Oil-Dha-E pa Active 2 EACH PO DAILY March 12, 2016 9:10am Start: 03-12-2016 Fish Oil-Dha-E pa Active 2 EACH PO DAILY March 11, 2016 11:00pm Start: 03-12-2016 Fish Oil-Dha-E pa Active 2 EACH PO DAILY March 12, 2016 12:00am Fish Oil-Dha-Epa 1 EACH capsule (3 sources) Start: 03-12-2016 take 1 capsule by mouth once daily Fish Oil-Dha-Epa 1 EACH capsule Active 2 NMA PO DAILY March 12, 2016 12:00am Magnesium (10 sources) Start: 03-12-2016 take 250 mg by mouth once daily Magnesium Active 250 MG PO DAILY March 12, 2016 9:10am Start: 03-12-2016 take 1 tablet by ginger once daily Magnesium 250 MG tablet Active 250 mg PO DAILY March 12, 2016 12:00am Start: 03-12-2016 take 250 mg by mouth once shemar y Magnesium Active 250 MG PO DAILY March 11, 2016 11:00pm Start: 03-12-2016 take 250 mg by mouth once shemar y Magnesium Active 250 MG PO DAILY March 12, 2016 12:00am metoprolol tartrate 50 mg oral tablet (11 sources) beta-Adrenergic Kirstie Start: 03-12-2016 take 1 tablet by mouth at bedtime Metoprolol Tartrate 50 MG tablet Active 50 mg PO AT BEDTIME March 12, 2016 12:00am Multivitamin With Folic Acid (7 sources) Start: 03-12-2016 take 1 tablet by mouth once daily Multivitamin With Folic Acid Active 1 TABLET PO DAILY March 12, 2016 9:10am Start: 03-12-2016 take 1 tablet by ginger th once daily Multivitamin With Folic Acid Active 1 TABLET PO DAILY March 11, 2016 11:00pm Start: 03-12-2016 take 1 tablet by ginger th once daily Multivitamin With Folic Acid Active 1 TABLET PO DAILY March 12, 2016 12:00am Multivitamin With Folic Acid 1 TABLET tablet (3 sources) Start: 03-12-2016 take 1 tablet by mouth once daily Multivitamin With Folic Acid 1 TABLET tablet Active 1 {tbl} PO DAILY March 12, 2016 12:00am omeprazole 40 mg delayed release oral capsule (11 sources) Proton Pump Inhibitor Start: 05-31-2019 take 1 capsule by mouth once daily Omeprazole 40 capsule,delayed release(DR/EC) Active 40 mg PO DAILY May 31, 2019 1:00am predniSONE 10 mg oral tablet (12 sources) Start: 12-07-2024 take 4 tablets by mouth once daily, then take 3 tablets by mouth once daily, then take 2 tablets by mouth once daily, then take 1 tablet by mouth once daily Prednisone 10 mg tablet Active 10 mg PO DAILY 30 December 07, 2024 12:00am 4 tablets daily x3 days, then 3 tablets daily x3 days, then 2 tablets daily x3 days, then 1 tablet daily x3 days Start: 01-29-2020 End: 09-29-2023 take 2 tablets by mouth once daily at mealtime Prednisone 20 MG tablet Discontinued 40 mg PO DAILY January 29, 2020 12:00am September 29, 2023 10:05am With food Start: 01-29-2020 End: 09-29-2023 take 40 mg by mouth once daily at mealtime Prednisone Discontinued 40 MG PO DAILY January 29, 2020 12:00am September 29, 2023 10:05am With food psyllium 400 mg oral capsule (10 sources) Start: 03-12-2016 take 1 capsule by mouth twice daily Psyllium Husk 0.52 GM capsule Active 1 NMA PO TWICE A DAY March 12, 2016 12:00am Start: 03-12-2016 take 1 capsule by mo [facility] twice daily Psyllium Husk Active 1 CAP PO TWICE A DAY March 12, 2016 12:00am Completed/Discontinued Medications Medication Drug Class(es) Dates Sig (Normalized) Sig (Original) aspirin 81 mg delayed release oral tablet (20 sources) Platelet Aggregation Inhibitor, Nonsteroidal Anti-inflammatory Drug Start: 06-13-2016 End: 12-09-2024 take 1 tablet by mouth once daily Aspirin 81 MG tablet,delayed release (DR/EC) Discontinued 81 mg PO DAILY June 13, 2016 1:00am December 09, 2024 2:10pm Start: 03-12-2016 End: 03-15-2016 take 1 tablet by mouth once daily Aspirin 81 MG Tab.Chew Discontinued 81 mg PO DAILY@0800 March 12, 2016 12:00am March 15, 2016 2:50pm calcium polycarbophil 625 mg oral tablet (1 source) Start: 08-07-2020 take 1 tablet by mouth twice daily FIBER 625 MG TABS 1 tablet by mouth twice a day calcium polycarbophil [id number] Heather Maldonado AT cephalexin 500 mg oral capsule (20 sources) Cephalosporin Antibacterial Start: 08-29-2018 End: 09-08-2018 take 1 capsule by mouth twice daily Cephalexin (Keflex) 500 mg capsule Discontinued 500 mg PO TWICE A DAY 20 10 August 29, 2018 12:00am September 07, 2018 12:00am September 08, 2018 12:07am Pain in right leg Start: 07-17-2018 End: 07-27-2018 take 1 capsule by mouth every twelve hours Cephalexin (Keflex) 500 mg capsule Discontinued 500 mg PO Q12H 20 10 0 July 17, 2018 1:00am July 26, 2018 1:00am July 27, 2018 1:09am Cellulitis of left lower limb cetirizine hydrochloride 10 mg oral capsule (10 sources) Histamine-1 Receptor Antagonist Start: 01-29-2020 End: 09-29-2023 take 1 capsule by mouth once daily Cetirizine 10 MG capsule Discontinued 10 mg PO DAILY 14 0 January 29, 2020 12:00am September 29, 2023 10:32am famotidine 20 mg oral tablet (10 sources) Histamine-2 Receptor Antagonist Start: 01-29-2020 End: 04-13-2024 take 1 tablet by mouth twice daily Famotidine 20 MG tablet Discontinued 20 mg PO TWICE A DAY 28 0 January 29, 2020 12:00am April 13, 2024 3:05pm magnesium oxide 250 mg oral tablet (1 source) Start: 08-07-2020 take 1 tablet by mouth once daily MAGNESIUM OXIDE -MG SUPPLEMENT 250 MG TABS 1 tablet by mouth once a day magnesium oxide [id number] Heather Maldonado AT methylPREDNISolone 4 mg oral tablet (3 sources) Corticosteroid Start: 09-17-2024 End: 09-23-2024 take 1 tablet by mouth once Methylprednisolone (Medrol (Leobardo)) 4 mg tablets,dose pack Discontinued 4 mg PO per package directions 21 6 0 September 17, 2024 12:00am September 22, 2024 12:00am September 23, 2024 12:08am [id number] fa-vit k (1 source) Start: 08-07-2020 take 1 tablet by mouth once daily MULTIVITAMIN ADULT (MINERALS) TABS 1 tablet by mouth once a day [id number] -fa-vit k [id number] Heather Maldonado AT omega-3 acid ethyl esters (group home) 1000 mg oral capsule (1 source) Start: 08-07-2020 take 2 capsules by mouth once daily [id number] ETHYL ESTERS 1 GM CAPS 2 capsule by mouth once a day omega-3 acid ethyl esters [id number] Heather Maldonado AT potassium chloride 10 meq extended release oral tablet (11 sources) Start: 08-07-2020 take 1 tablet by mouth twice daily POTASSIUM CHLORIDE ER 10 MEQ CR-TABS 1 tablet by mouth twice a day potassium chloride [id number] Heather Maldonado AT Start: 03-12-2016 take 1 tablet by [facility] twice daily Potassium Chloride 10 MEQ tablet,ER particles/crystals Active 10 meq PO TWICE A DAY March 12, 2016 12:00am Problems Active Problems Problem Classification Problem Date Documented Date Episodic/Chronic Calculus of urinary tract (10 sources) Ureteric stone; Translations: [Calculus of ureter] 05-31-2019 Episodic Cardiac dysrhythmias (7 sources) Paroxysmal atrial fibrillation; Translations: [Paroxysmal atrial fibrillation] Onset: 11-23-2024 12-09-2024 Chronic Chronic obstructive pulmonary disease and bronchiectasis (10 sources) Bronchitis; Translations: [Bronchitis, not specified as acute or chronic] 10-17-2018 Episodic Conditions associated with dizziness or vertigo (10 sources) Benign paroxysmal positional vertigo; Translations: [Benign paroxysmal vertigo, left ear] 06-01-2019 Episodic Coronary atherosclerosis and other heart disease (13 sources) Coronary atherosclerosis; Translations: [Atherosclerotic heart disease of [place] coronary artery without angina pectoris] Onset: 12-09-2024 10-17-2018 Chronic Disorders of lipid metabolism (10 sources) Hyperlipidemia; Translations: [Hyperlipidemia, unspecified] 10-17-2018 Chronic Esophageal disorders (10 sources) Gastroesophageal reflux disease; Translations: [Gastro-esophageal reflux disease without esophagitis] 10-17-2018 Chronic Essential hypertension (10 sources) Hypertensive disorder; Translations: [Essential (primary) hypertension] 10-17-2018 Chronic Intracranial injury (10 sources) Concussion with less than 1 hour loss of consciousness; Translations: [Concussion with loss of consciousness of 30 minutes or less, initial encounter] 10-18-2018 Episodic Other acquired deformities (4 sources) Lumbar spondylolisthesis; Translations: [Spondylolisthesis, lumbar region] 06-24-2024 Episodic Other connective tissue disease (13 sources) Foot pain; Translations: [Pain in right foot] 10-17-2018 Episodic Other diseases of kidney and ureters (10 sources) Hydronephrosis; Translations: [Unspecified hydronephrosis] 10-17-2018 Episodic Other nervous system disorders (5 sources) Polyneuropathy; Translations: [Polyneuropathy, unspecified] 09-29-2023 Chronic Other nervous system disorders (3 sources) Polyneuropathy, unspecified; Translations: [Unspecified hereditary and idiopathic peripheral neuropathy] Onset: 09-17-2024 09-29-2023 Chronic Other nervous system disorders (7 sources) Peripheral nerve disease ; Translations: [Polyneuropathy, unspecified] 06-24-2024 Chronic Other upper respiratory infections (10 sources) Upper respiratory infection; Translations: [Acute upper respiratory infection, unspecified] 10-17-2018 Episodic Residual codes; unclassified (10 sources) Obstructive sleep apnea of adult; Translations: [Obstructive sleep apnea (adult) (pediatric)] 10-17-2018 Chronic Skin and subcutaneous tissue infections (10 sources) Cellulitis of foot; Translations: [Cellulitis of left lower limb] 10-17-2018 Episodic Spondylosis; intervertebral disc disorders; other back problems (11 sources) Lumbar radiculopathy; Translations: [Radiculopathy, lumbar region] 09-29-2023 Episodic Superficial injury; contusion (10 sources) Abrasion of face, infected; Translations: [Abrasion of other specified part of neck, initial encounter] 10-18-2018 Episodic Unclassified (1 source) Low back pain, unspecified; Translations: [Low back pain, unspecified] Onset: 06-24-2024 Urinary tract infections (10 sources) Hemorrhagic cystitis; Translations: [Cystitis, unspecified with hematuria] 10-17-2018 Episodic Past or Other Problems Problem Classification Problem Date Documented Da [...] of rotator cuff] Onset: 08-08-2020 08-08-2020 Episodic Other connective tissue disease (1 source) Pain in right foot; Translations: [Pain in right foot] Onset: 09-17-2024 Episodic Other screening for suspected conditions (not mental disorders or infectious disease) (15 sources) Patient encounter status; Translations: [Encounter for screening for malignant neoplasm of intestinal tract, unspecified] Onset: 06-14-2024 05-31-2019 Episodic Unclassified (1 source) Problem Results Test Name Value Interpretation Reference Range Facility Cardiology Visit Reporton Cardiology Visit Report [facility] [address] [place] [address] OFFICE VISIT Date of Service: 12/09/24 MR#: [id number] Acct: [id number] Name: RICHARD HERNÁNDEZ Rep #: [id number] : 1950 Provider: Dr. Robi alexis MD Age/Sex: 74/M Location: [facility] Status: Signed HPI HPI History of Present Illness Details: Patient is a pleasant 74-year-old white male that comes in today for new patient visit. The patient is referred for atrial fibrillation he actually had a Holter monitor on that was completed October 18, 2024 showed an average heart rate of 71 minimum of 52 and sinus bradycardia he had one 1 minute run of atrial fibrillation at a heart rate of 135. He had 3.9% PVCs the patient had no symptoms. The patient also has an iWatch he cannot do ECGs but it does capture heart rate variability and he has had several episodes in the month of October and November. He denies any symptoms denies any syncope or near syncope denies any lightheaded spells. He denies any palpitations. ECG done in office today shows normal sinus rhythm with moderate voltage criteria for LVH and a borderline ECG. The patient does have a family history of coronary disease he is hyperlipidemic he carries a history of sleep apnea however after nasal surgery he is not snoring anymore and he has not been retested this was several years ago. The patient also had a heart catheterization in 2003 which showed nonobstructive minor coronary artery disease. The patient has been on metoprolol long-term. He has a history of hypertension which is adequately controlled on his current meds. He did notice some recent ankle swelling during the hot humid weather and he is on amlodipine 5 mg daily. 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 Accompanied by: Self Is patient in pain?: No Allergies cinnamon Allergy (Verified 12/09/24 13:15) Swelling molasses Allergy (Verified 12/09/24 13:15) Swelling duloxetine Adverse Reaction (Verified 12/09/24 13:15) Tired, Light headed olmes[facility] Adverse Reaction (Verified 12/09/24 13:15) Unknown Medications ???Medication ???Instructions ???Recorded ???Confirmed ???Type fish oil-dha-epa 1,200 mg-144 2 ea PO DAILY 03/12/16 12/09/24 Hi story mg-216 mg capsule magnesium 250 mg tablet 250 mg PO DAILY 03/12/16 12/09/24 History metoprolol tartrate 50 mg tablet 50 mg PO QHS 03/12/16 12/09/24 His tory multivitamin with folic acid 400 1 tab PO DAILY 03/12/16 12/09/24 H istory mcg tablet potassium chloride 10 mEq 10 meq PO BID 03/12/16 12/09/24 Hi story tablet,extended release(part/cryst) psyllium husk 0.4 gram capsule 1 cap PO BID 03/12/16 12/09/24 His tory atorvastatin 40 mg tablet 40 mg PO QHS 08/29/18 12/09/24 His tory omeprazole 40 mg capsule,delayed 40 mg PO DAILY 05/31/19 12/09/24 H istory release ferrous sulfate 325 mg (65 mg 325 mg PO MOWEFR 09/29/23 12/09/24 History iron) tablet (Feosol) amlodipine 5 mg tablet 5 mg PO QDAY 09/17/24 12/09/24 His tory biotin 10 mg tablet 10 mg PO QDAY 09/17/24 12/09/24 Hi story duloxetine 60 mg capsule,delayed mg PO 09/17/24 12/09/24 History release prednisone 10 mg tablet 10 mg PO DAILY #30 tabs 12/07/24 0 12/09/24 Rx apixaban 5 mg tablet (Eliquis) 5 mg PO BID #60 tabs 12/09/2408/31 Rx Ejection fraction %: 65 Have you fallen in the past year?: No PFSH Medical History Wears glasses Low iron High cholesterol Back pain Heartburn Gastric reflux CPAP (continuous positive airway pressure) dependence Sleep apnea History of stress test ( 2011) History of kidney stones Family history of colon cancer in father Personal history of colonic polyps Surgical History History of cataract extraction with lens replacement ( 2022) History of medial meniscus repair of right knee ( 1979) History of nasal surgery History of foot surgery History of repair of rotator cuff (2021) History of cystoscopy Hx of colonoscopy Family History Father Colon cancer Social History household members: spouse number of children: 2 current occupational status: retired Smoking Status: Never smoker alcohol intake: never substance use type: does not use ROS Const Const: Neg (more content not included)... Normal [facility]gent [facility] Visit Reporton 0 12-07-2024 Urgent Care Visit Report [facility] [address], [address] [place] [address] OFFICE VISIT Date of Service: 12/07/24 MR#: [id number] Acct: [id number] Name: RICHARD HERNÁNDEZ Rep #: [id number] : 1950 Provider: DEJAN Cruz Age/Sex: 74/M Location: [facility] Status: Signed Intake Vital Signs 09/17/24 09:26 12/07/24 08:27 Height 5 ft 6 in Weight: 189 lb 2 oz BMI 30.5 BP 166/80 H 132/86 H Blood Pressure Location Lt brachial Position Sitting Sitting Respiration 16 16 Pulse 66 65 Pulse Source NIBP Temp 98.2 F 97.9 F Temp Source Oral Oral Pulse Oximetry (%) 97 98 Oxygen Delivery Method room air room air Intake Visit Reasons: RASH/BUMPS Accompanied by: Self Allergies cinnamon Allergy (Verified 12/07/24 08:25) Swelling molasses Allergy (Verified 12/07/24 08:25) Swelling duloxetine Adverse Reaction (Verified 12/07/24 08:25) Tired, Light headed olmesartan medoxomil (From [facility]) Adverse Reaction (Verified 12/07/24 08:25) Unknown Medications ???Medication ???Instructions ???Recorded ???Confirmed ???Type fish oil-dha-epa 1,200 mg-144 2 ea PO DAILY 03/12/16 12/07/24 Hi story mg-216 mg capsule magnesium 250 mg tablet 250 mg PO DAILY 03/12/16 12/07/24 History metoprolol tartrate 50 mg tablet 50 mg PO QHS 03/12/16 12/07/24 His tory multivitamin with folic acid 400 1 tab PO DAILY 03/12/16 12/07/24 H istory mcg tablet potassium chloride 10 mEq 10 meq PO BID 03/12/16 12/07/24 Hi story tablet,extended release(part/cryst) psyllium husk 0.4 gram capsule 1 cap PO BID 03/12/16 12/07/24 His tory aspirin 81 mg tablet,delayed 81 mg PO DAILY 06/13/16 12/07/24 H istory release atorvastatin 40 mg tablet 40 mg PO QHS 08/29/18 12/07/24 His tory omeprazole 40 mg capsule,delayed 40 mg PO DAILY 05/31/19 12/07/24 H istory release ferrous sulfate 325 mg (65 mg 325 mg PO MOWEFR 09/29/23 12/07/24 History iron) tablet (Feosol) amlodipine 5 mg tablet 5 mg PO QDAY 09/17/24 12/07/24 His tory biotin 10 mg tablet 10 mg PO QDAY 09/17/24 12/07/24 Hi story duloxetine 60 mg capsule,delayed mg PO 09/17/24 12/07/24 History release prednisone 10 mg tablet 10 mg PO DAILY #30 tabs 12/07/24 0 12/07/24 Rx Have you fallen in the past year?: No Nurse's Note: Patient has a rash and lumps on bilateral arms and on the back of his neck. Patient states that it happen on th of last week. Patient was using OTC medication but it wasn't helping it. Patient states it itches. [facility] Medical History Wears glasses Low iron High cholesterol Back pain Heartburn Gastric reflux CPAP (continuous positive airway pressure) dependence Sleep apnea History of stress test ( 2011) History of kidney stones Family history of colon cancer in father Personal history of colonic polyps Surgical History History of cataract extraction with lens replacement ( 2022) History of medial meniscus repair of right knee ( 1979) History of nasal surgery History of foot surgery History of repair of rotator cuff (2021) History of cystoscopy Hx of colonoscopy Family History Father Colon cancer Social History household members: spouse number of children: 2 current occupational status: retired Smoking Status: Never smoker alcohol intake: never substance use type: does not use HPI HPI Details: RICHARD HERNÁNDEZ, is a 74 M who presents to the office today for initial evaluation status post poison danny exposure w/ rash to bilateral forearms and on the back of his neck while hiking. Patient states he has used multiple glsl-lsv-pzkntwe topical applications without relief of symptoms. No complaints of constricted/pruritic airway or chest pain/shortness of breath/wheeze/dyspne a on exertion. No other associated symptoms and no other alleviating/aggravat ing factors. ROS Const Constitutional: No other (As above) Exam Const General: cooperative, healthy appearing and no acute distress Nutritional Appearance: average body habitus Orientation: alert, awake and oriented x3 HENMT Head: normal to inspection Ears: hearing grossly normal bilaterally, external ears normal, TM's normal bilaterally and EAC's normal Nose: external nose normal, nares normal, septum normal and no nasal discharge Face and sinus: normal facial exam, sinuses nontender and face symmetric Mouth: oral mucosae normal, lip normal, tongue normal and oropharynx normal Throat: posterior oropharynx normal, tonsils normal, uvula midline and no postnasal drainage Eyes General: appearance normal, both eyes and all related structures (more content not included)... Normal [facility] Urgent Care Visit Reporton 0 09-17-2024 Urgent Care Visit Report [facility] [address], [address] [place] [address] OFFICE VISIT Date of Service: 09/17/24 MR#: [id number] Acct: [id number] Name: RICHARD HERNÁNDEZ Rep #: [id number] : 1950 Provider: DEJAN Osullivan Age/Sex: 74/M Location[facility] Status: Signed Intake Vital Signs 06/24/24 12:47 09/17/24 09:26 Height 5 ft 6 in 5 ft 6 in Weight: 192 lb 6 oz 189 lb 2 oz BMI 31.0 30.5 BP 166/80 H Blood Pressure Location Lt brachial Position Sitting Respiration 16 Pulse 66 Pulse Source NIBP Temp 98.2 F Temp Source Oral Pulse Oximetry (%) 97 Oxygen Delivery Method room air Intake Visit Reasons: R FOOT PAIN/REDNESS/SWELLIN G Chief Complaint: right foot pain 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 Is patient in pain?: Yes Allergies cinnamon Allergy (Verified 09/17/24 09:26) Swelling molasses Allergy (Verified 09/17/24 09:26) Swelling duloxetine Adverse Reaction (Verified 09/17/24 09:26) Tired, Light headed olmesartan medoxomil (From [facility]) Adverse Reaction (Verified 09/17/24 09:26) Unknown Medications ???Medication ???Instructions ???Recorded ???Confirmed ???Type fish oil-dha-epa 1,200 mg-144 2 ea PO DAILY 03/12/16 09/17/24 Hi story mg-216 mg capsule magnesium 250 mg tablet 250 mg PO DAILY 03/12/16 09/17/24 History metoprolol tartrate 50 mg tablet 50 mg PO QHS 03/12/16 09/17/24 His tory multivitamin with folic acid 400 1 tab PO DAILY 03/12/16 09/17/24 H istory mcg tablet potassium chloride 10 mEq 10 meq PO BID 03/12/16 09/17/24 Hi story tablet,extended release(part/cryst) psyllium husk 0.4 gram capsule 1 cap PO BID 03/12/16 09/17/24 His tory aspirin 81 mg tablet,delayed 81 mg PO DAILY 06/13/16 09/17/24 H istory release atorvastatin 40 mg tablet 40 mg PO QHS 08/29/18 09/17/24 His tory omeprazole 40 mg capsule,delayed 40 mg PO DAILY 05/31/19 09/17/24 H istory release ferrous sulfate 325 mg (65 mg 325 mg PO MOWEFR 09/29/23 09/17/24 History iron) tablet (Feosol) amlodipine 5 mg tablet 5 mg PO QDAY 09/17/24 09/17/24 His tory biotin 10 mg tablet 10 mg PO QDAY 09/17/24 09/17/24 Hi story duloxetine 60 mg capsule,delayed mg PO 09/17/24 09/17/24 History release methylprednisolone 4 mg tablets in 4 mg PO PER PKG DIR 6 days #21 t abs 09/17/24 09/17/24 Rx a dose pack (Medrol (Leobardo)) Have you fallen in the past year?: No Nurse's Note: right foot pain, redness, swelling x 4-5 days without resolve. hx neuropathy and cellulitis, concern for same. denies drainage, fever. [facility] Medical History Wears glasses Low iron High cholesterol Back pain Heartburn Gastric reflux CPAP (continuous positive airway pressure) dependence Sleep apnea History of stress test ( 2011) History of kidney stones Family history of colon cancer in father Personal history of colonic polyps Surgical History History of cataract extraction with lens replacement ( 2022) History of medial meniscus repair of right knee ( 1979) History of nasal surgery History of foot surgery History of repair of rotator cuff (2021) History of cystoscopy Hx of colonoscopy Family History Father Colon cancer Social History household members: spouse number of children: 2 current occupational status: retired Smoking Status: Never smoker alcohol intake: never substance use type: does not use HPI HPI Chief Complaint: right foot pain Details: RICHARD HERNÁNDEZ, is a 74 M who presents to the office today for complaint of right foot pain. Patient states she has a history of neuropathy and cellulitis so wants to make sure that the area is not because of cellulitis. Patient states that last night after taking shoes off he had a area of redness mostly over the right third fourth and fifth toes. He states that the redness resolved prior to him going to sleep. He denies numbness or loss of range of motion. No fever, chills or sweats. No nausea, vomiting or diarrhea. No other associated symptoms or alleviating/aggravat ing factors. ROS Const Constitutional: No other (6 system ROS completed with pertinent findings in the HPI otherwise normal.) Exam Const General: cooperative and healthy appearing Resp Effort Inspection: normal respiratory effort Cardio Rate: regular rate Skin General: no rashes or lesions noted Neuro General: patient alert Extrem General: full ROM, no pedal edema and normal gait Other: Slowed capillary refill bilateral feet. No current erythema or sign of infection. Psych Appearance: grossly normal Mental Status: mental status grossly normal (more content not included)... Normal [facility] L/S Spine Min 4 Views06-09 L/S Spine Min 4 Views [facility] [address] [place] [address] L/S Spine Min 4 Views MR#: [id number] Acct: [id number] Name: RICHARD HERNÁNDEZ Rep #: [id number] : 1950 M 74 From: Zaid Panchal DO PCP: Dr. Sudarshan Boyle DO Status: DEP AMB Study: L/S Spine Min 4 Views Date of Exam: 06/24/24 Exam# [id number] Ordering Dr: Violeta León [id number] STUDY: X-RAY - LUMBAR SPINE REASON FOR EXAM: Male, 74 years old. pain -- please do upright AP, LAT, flex/ext TECHNIQUE: 4 view(s) of the lumbar spine were obtained. COMPARISON: None FINDINGS: Normal lumbar lordosis. There is no substantial scoliosis. There is a minimal spondylolisthesis at L5-S1. Normal vertebral bodies. Degenerative spurring at endplates. Slightly narrowed disc space heights. Very limited flexion. The soft tissue structures are unremarkable. RAD/L/S Spine Min 4 Views IMPRESSION: Degenerative changes of the lumbar spine. Minimal spondylolisthesis at L5-S1. Electronically Signed: Zaid Panchal DO at 16:23 EST Reading Location ID and State: [facility] / [place] Tel [phone], Service support , CC: DEJAN Reyes; Dr. Sudarshan Boyle DO Communication Specialist: Signed Normal [facility] Orthopedic Visit Reporton Orthopedic Visit Report [facility] [address] [place] [address] [address] [place] [address] OFFICE VISIT Date of Service: 06/24/24 MR#: [id number] Acct: [id number] Name: RICHARD HERNÁNDEZ Rep #: [id number] : 1950 Provider: Dr. Reese Guillory MD Age/Sex: 74/M Location: [facility] Status: Signed Intake Vital Signs 04/13/24 14:08 05/31/24 07:10 06/24/24 12:47 Height 5 ft 6 in 5 ft 6 in 5 ft 6 in Weight: 192 lb 6 oz BMI 31.0 Intake Visit Reasons: LUMBAR SPINE Accompanied by: Allergies cinnamon Allergy (Verified 06/24/24 12:50) Swelling molasses Allergy (Verified 06/24/24 12:50) Swelling duloxetine Adverse Reaction (Verified 06/24/24 12:50) Tired, Light headed olmesartan medoxomil (From [facility]) Adverse Reaction (Verified 06/24/24 12:50) Unknown Medications ???Medication ???Instructions ???Recorded ???Confirmed ???Type fish oil-dha-epa 1,200 mg-144 2 ea PO DAILY 03/12/16 06/24/24 History mg-216 mg capsule magnesium 250 mg tablet 250 mg PO DAILY 03/12/16 06/24/24 History metoprolol tartrate 50 mg tablet 50 mg PO QHS 03/12/16 06/24/24 History multivitamin with folic acid 400 1 tab PO DAILY 03/12/16 06/24/24 History mcg tablet potassium chloride 10 mEq 10 meq PO BID 03/12/16 06/24/24 History tablet,extended release(part/cryst) psyllium husk 0.4 gram capsule 1 cap PO BID 03/12/16 06/24/24 History aspirin 81 mg tablet,delayed 81 mg PO DAILY 06/13/16 06/24/24 History release atorvastatin 40 mg tablet 40 mg PO QHS 08/29/18 06/24/24 History omeprazole 40 mg capsule,delayed 40 mg PO DAILY 05/31/19 06/24/24 History release ferrous sulfate 325 mg (65 mg 325 mg PO MOWEFR 09/29/23 06/24/24 History iron) tablet (Feosol) Have you fallen in the past year?: No PFSH Medical History Wears glasses Low iron High cholesterol Back pain Heartburn Gastric reflux CPAP (continuous positive airway pressure) dependence Sleep apnea History of stress test ( 2011) History of kidney stones Family history of colon cancer in father Personal history of colonic polyps Surgical History History of cataract extraction with lens replacement ( 2022) History of medial meniscus repair of right knee ( 1979) History of nasal surgery History of foot surgery History of repair of rotator cuff (2021) History of cystoscopy Hx of colonoscopy Family History Father Colon cancer Social History household members: spouse number of children: 2 current occupational status: retired Smoking Status: Never smoker alcohol intake: never substance use type: does not use HPI LUMBAR SPINE Details: This documentation accurately reflects the service provided and the decisions made by me, Dr. Reese Guillory MD 06/24/24 2205. Part of today???s visit was documented by Brenda DIXON, acting as scribe. RICHARD HENRÁNDEZ is a 74 year old M here today NEW patient for low back pain. Patient was referred by Dr. Colin. Patient did have an MRI of his lumbar spine that was done on 10/02/23 at [facility]. Patient states that he had surgery on his right foot about 8 years ago and after that he noticed that his right foot was numb. At that time he thought he had neuropathy so he went back to see his foot and ankle doctor and was told he doesn't have neuropathy and that it is coming from his back. He is concerned with driving because sometimes when he is in a parking lot he notices that his right foot is on the gas and break pedal. He does get pain in his left hip as well. Dr. Colin has done an ablations for the left hip pain and he noticed about 60% of benefit from it. He has had an ablation done 5-6 times but states that the last one he had done didn't give him any relief. His last injection was on 01-28-24 and he had a left lumbar transforaminal steroid injection at L4-5 and L5- S1. He denies numbness in the legs. He denies numbness and tingling in the legs as well. He also notices that in the right foot he will get a cold sensation and a hot sensation. He denies doing any physical therapy for the lumbar spine. He states that he never had any back issues prior to the foot surgery 8 years ago. He denies previous spine surgery. He occasionally take Ibuprofen for the pain but not on a regular basis. All of his symptoms started 8 years ago. Unable to stand for a prolonged period of time. A lot of bicycling during the warmer months, cycles close to 3,000 miles per year. Might be able to walk a mile without needing to take a break. Numbness in leg worsens the more walking he does. Has taken gabapentin before for neuropathy but did not like it. Non-diabetic. No (more content not included)... Normal [facility] Colonoscopy Reporton 024 Colonoscopy Report [facility] Medical Records Department [address] [place] [address] Colonoscopy Report MR#: [id number] Acct: [id number] Name: RICHARD HERNÁNDEZ Rep #: [id number] : 1950 74 From: James Crane DO PCP: Dr. Sudarshan Boyle DO Status:REG [facility] Patient Name: Richard Hernández Procedure Date: 05/31/2024 7:47 AM Date of : 1950 Age: 74 Procedure: Colonoscopy Indications: High risk colon cancer surveillance: Personal history of colonic polyps Providers: James Crane DO Referring MD: Sudarshan Boyle Medicines: Monitored Anesthesia Care Patient Profile: This is a 74 year old male. Refer to note in patient chart for documentation of history and physical. Last Colonoscopy: 5 years ago. Complications: No immediate complications. Procedure: Pre-Anesthesia Assessment: - Prior to the procedure, a History and Physical was performed, and patient medications and allergies were reviewed. The patient is competent. The risks and benefits of the procedure and the sedation options and risks were discussed with the patient. All questions were answered and informed consent was obtained. Patient identification and proposed procedure were verified by the physician in the pre-procedure area. Mental Status Examination: alert and oriented. Airway Examination: normal oropharyngeal airway and neck mobility. Respiratory Examination: clear to auscultation. CV Examination: normal. Prophylactic Antibiotics: The patient does not require prophylactic antibiotics. Prior Anticoagulants: The patient has taken no anticoagulant or antiplatelet agents except for NSAID medication. ASA Grade Assessment: II - A patient with mild systemic disease. After reviewing the risks and benefits, the patient was deemed in satisfactory condition to undergo the procedure. The anesthesia plan was to use monitored anesthesia care (MAC). Immediately prior to administration of medications, the patient was re-assessed for adequacy to receive sedatives. The heart rate, respiratory rate, oxygen saturations, blood pressure, adequacy of pulmonary ventilation, and response to care were monitored throughout the procedure. The physical status of the patient was re-assessed after the procedure. After I obtained informed consent, the scope was passed under direct vision. Throughout the procedure, the patient's blood pressure, pulse, and oxygen saturations were monitored continuously. The Colonoscope was introduced through the anus and advanced to the cecum, identified by appendiceal orifice and ileocecal valve. The colonoscopy was performed without difficulty. The patient tolerated the procedure well. The quality of the bowel preparation was adequate. The ileocecal valve, appendiceal orifice, and rectum were photographed. Scope In: 7:57:46 AM Scope Withdrawal Time 0 hours 10 minutes 35 seconds Scope Out: 8:11:44 AM Total Procedure Duration Time 0 hours 13 minutes 58 seconds Findings: The perianal and digital rectal examinations were normal. Two sessile polyps were found in the cecum. The polyps were 8 mm in size. These polyps were removed with a cold biopsy forceps. Resection and retrieval were complete. Verification of patient identification for the specimen was done. Estimated blood loss was minimal. A few small and large-mouthed diverticula were found in the recto-sigmoid colon, sigmoid colon and descending colon. Non-bleeding external and internal hemorrhoids were found during retroflexion. The hemorrhoids were Grade II (internal hemorrhoids that prolapse but reduce spontaneously). Impression: - Two 8 mm polyps in the cecum, removed with a cold biopsy forceps. Resected and retrieved. - Diverticulosis in the recto-sigmoid colon, in the sigmoid colon and in the descending colon. - Non-bleeding external and internal hemorrhoids. Recommendation: - Repeat colonoscopy in 5 years for surveillance. - Continue present medications. Procedure Code(s): --- Professional --- 40735, Colonoscopy, flexible; with biopsy, single or multiple CPT copyright 2022 [employer]. All rights reserved. The codes documented in this report are preliminary and upon collision mechanic review may be revised to meet current compliance requirements. James Crane DO 05/31/2024 8:15:49 AM This report has been signed electronically. Number of Addenda: 0 Note Initiated On: 05/31/2024 7:47 AM 05/31/24814 Date James Crane DO Cosigner Signature: Date (if indicated) CC: Dr. Sudarshan Boyle DO; James Crane DO Date Dictated: 05/31/24746 Date Transcribed: Communication Specialist: ISREAL Signed [facility] MR/POSTOP.[facility] 05-31-2024 MR/POSTOP.[facility] Medical Records Department [address] [place] [address] Anesthesia Postop Eval I 05/31/24817 MR#: [id number] Acct: [id number] Name: RICHARD HERNÁNDEZ Rep #: [id number] : 1950 74 From: Saurav Davis PCP: Dr. Sudarshan Boyle DO Status:REG SD Y Race: C Location: [place] [address] Anesthesia: Postop Eval I Current Vital Signs Temperature: 98.6 F Pulse Rate: 61 Blood Pressure: 104/76 Respiratory Rate: 16 Pulse Ox: 99 Oxygen Delivery Method: Room Air Assessment Airway patent: Yes Spontaneous unlabored respirations: Yes Mental status: Awake and Calm nausea: No Vomiting: No Anesthesia Complication: No Fluid Hydration Crystalloid volume administer (ml): 40 Total IV fluid infused: 40 Progress Note Anesthesia document: Postop Eval 1 completed: Yes 05/31/24818 Date Saurav Arreaga Signature: Date CC: Signed Normal [facility] MR/[id number] 05-31-2024 MR/POSTOPAN2 [facility] Medical Records Department [address] [place] [address] Anesthesia Postop Eval II 05/31/24825 MR#: [id number] Acct: [id number] Name: RICHARD HERNÁNDEZ Rep #: [id number] : 1950 74 From: Adam Chu MD PCP: Dr. Sudarshan Boyle, DO Status:REG SDC Y Race: C Location: [place] [address] Anesthesia Postop Eval I Sum Postop Eval Completion status Anesthesia document: Postop Eval 1 completed: Yes Anesthesia Postop Eval I Summary Anesthesia Postop Eval I Summary: Anesthesia Postop Eval I: Assessment Summary Airway patent Yes 05/31/24 08:19 [email or web address] Spontaneous unlabored Yes 05/31/24 08:19 [email or web address] respirations Mental status Awake,Calm 05/31/24 08:19 [email or web address] nausea No 05/31/24 08:19 [email or web address] Vomiting No 05/31/24 08:19 [email or web address] Anesthesia Postop Eval I: Fluid Summary Crystalloid volume administer 40 05/31/24 08:19 [email or web address] (ml) Colloids volume administered ( ml) Blood Product volume administered (ml) Total IV fluid infused 40 05/31/24 08:19 [email or web address] Anesthesia Postop Eval I: Summary Notes Anesthesia Complication No 05/31/24 08:19 [email or web address] Anesthesia Complication Comment: Post-operative progress note Anesthesia: Postop Eval II Evaluation Mental status: Awake Pain Level: 0 nausea: No Vomiting: No 05/31/24825 Date Adam Arreaga Signature: Date CC: Signed Normal [facility] Surgery Specimen Level Nilesh 05-31-2024 Surgery Specimen Level IV Patient Age/Sex Location Account Attending Physician RICHARD HERNÁNDEZ 74/M EN [id number] James Crane DO Specimen: [id number] Received: 05/31/24 Status: ALYCIA Arriaza Num: [id number] Spec Type: EGD BIOPSY Subm Dr: James Crane, HEADER OPERATION: Colonoscopy with biopsy PRE-OP DIAGNOSIS: Screening TISSUE SUBMITTED: Cecal polyp MICROSCOPIC DIAGNOSIS Cecal polyp, biopsy: Fragments of tubular adenoma. 06/01/2024 MICROSCOPIC DESCRIPTION Slides are reviewed. GROSS DESCRIPTION Received is one container labeled with the patient name and designated cecal polyp. The specimen consists of multiple irregular fragments of light chaudhry soft tissue that in aggregate measure 1.5 x .2 x .1 cm. The specimen is totally submitted in one cassette. /MS:cc 05/31/24 TC:1 CPT:66129 Patient Age/Sex Location Account Attending Physician RICHARD HERNÁNDEZ 74/M EN [id number] James Crane DO Signed (signature on file) Dr. Odin Wu MD 06/01/24 1219 Normal [facility] Comment on above: Performed By: #### P SUIV #### [facility] [address] [place], [address] Lipid Profileon 04-12-2024 Cholesterol [Mass/Vol] 136 mg/dL Normal 200 [facility] Comment on above: Result Comment: <200 mg/dL Desirable 200-240 mg/dL Borderline >240 mg/dL High Risk Performed By: #### L 500.4100, L501.9910 #### [facility] [address] [place], [address] Cholesterol in HDL [Mass/Vol] 55 mg/dL Normal [facility] Comment on above: Result Comment: The drugs N-Acetylcysteine and Metamizole may falsely depress this assay. Reference Range HDL <40 mg/dL Low HDL Cholesterol HDL >or= 60 mg/dL High HDL Cholesterol Performed By: #### L 500.4100, L501.9910 #### [facility] [address] [place], [address] Cholesterol in LDL [Mass/Vol] 66 mg/dL Normal 0-130 [facility] Comment on above: Performed By: #### L 500.4100, L501.9910 #### [facility] [address] [place], [address] Cholesterol in VLDL [Mass/Vol] 15 mg/dL Normal 5-40 [facility] Comment on above: Performed By: #### L 500.4100, L501.9910 #### [facility] [address] [place], [address] Triglyceride [Mass/Vol] 74 mg/dL Normal [facility] Comment on above: Result Comment: The drugs N-Acetylcysteine and Metamizole may falsely depress this assay. Serum Triglycerides Reference Interval Normal <150 mg/dL Borderline high 150 - 199 mg/dL High 200 - 499 mg/dL Very High > or = 500 mg/dL Performed By: #### L 500.4100, L501.9910 #### [facility] [address] [place], [address] PSA,Total - Annual Screenon 04-12-2024 PSA,TOT SCREEN 1.09 ng/mL Normal 0.00-4.00 [facility] Comment on above: Result Comment: This test was performed using the TPSA assay method for the [employer] chemistry system. Values obtained with different assay methods cannot be used interchangably. When changing PSA assays in the course of monitoring a patient, additional sequential testing should be carried out to confirm baseline values. Performed By: #### L 500.4100, L501.9910 #### [facility] [address] [place], [address] Basophil percentageOrdered B y: Darryl Miranda on 10-03-2023 Bilirubin [Mass/Vol] 0.80 mg/dL 0.20-1.00 [facility] Comment on above: For patients on eltr ombopag therapy, use of Dimension [place] TBIL is not recommended. Chloride [Moles/Vol] 107 mmol/L 98-107 [facility] Glucose [Mass/Vol] 106 mg/dL 74-106 [facility] Comment on above: Fasting Glucose resu lt from 100 to 125 mg/dL suggests IMPAIRED HOMEOSTASIS per A.D.A. criteria. Hemoglobin (Bld) [Mass/Vol] 15.7 g/dL 13.0-16.5 [facility] Potassium [Moles/Vol] 3.6 mmol/L 3.5-5.1 [facility] Protein [Mass/Vol] 6.8 g/dL 6.4-8.2 [facility] Sodium [Moles/Vol] 140 mmol/L 136-145 [facility] WBC (Bld) [#/Vol] 5.5 10*3/uL 4.4-11.0 [facility] Determination of erythrocyte mean corpuscular volume (MCV)Ordered By: Darryl Miranda on 10-03-2023 MCV (RBC) [Entitic vol] 92.0 fL 80-94 [facility] Erythrocyte distribution wid th ratioOrdered By: [facility]-2023 Erythrocyte distribution width (RBC) [Ratio] 12.9 % 11.6-14.6 [facility] Erythrocyte distribution wid th standard deviationOrdered By: [facility] on 10-03-2023 Erythrocyte distribution width (RBC) [Entitic vol] 43.4 fL 35.1-43.9 [facility] Hematocrit Auto (Bld) [Volum e fraction]Ordered By: [facility] on 10-03-2023 Hematocrit (Bld) [Volume fraction] 45.0 % 40-54 [facility] - Chemistry and C hemistry - challengeOrdered By: [facility] on 10-03-2023 Albumin/Globulin [Mass ratio] 0.9 {ratio} 0.9-2.4 [facility] ALP [Catalytic activity/Vol] 81 U/L 45-117 [facility] ALT [Catalytic activity/Vol] 22 U/L 16-61 [facility] CO2 [Moles/Vol] 28.0 mmol/L 21.0-32.0 [facility] Cobalamin (Vitamin B12) [Mass/Vol] 839 pg/mL 211-911 [facility] Globulin (S) [Mass/Vol] 3.5 g/dL 2.2-4.2 [facility] Urea nitrogen/Creatinine [Mass ratio] 14.0 mg/mg 10-20 [facility] - Hematology and Cell countsOrdered By: [facility] [place] [facility] on 10-03-2023 MCH (RBC) [Entitic mass] 32.1 pg 27.0-32.0 [facility] MCHC (RBC) [Mass/Vol] 34.9 g/dL 32-36 [facility] Platelet mean volume (Bld) [Entitic vol] 10.5 fL 6.2-12.0 [facility] Platelets (Bld) [#/Vol] 171 10*3/uL 150-450 [facility] No Panel InformationOrdered By: Darryl Miranda on 10-03-2023 Estimated GFR (MDRD) Amer 139 mL/min >60 [facility] Comment on above: GFR Calc Estimated GFR (MDRD) Non-Af Amer 115 mL/min >60 [facility] Comment on above: Non- GFR Calc Folate 18.90 ng/mL 3.1-55.4 [facility] RBC Auto (Bld) [#/Vol]Ordere d By: Darryl Miranda on 10-03-2023 RBC (Bld) [#/Vol] 4.89 10*6/uL 4.6-6.2 [facility] Serum or plasma calcium cezar urement (mass/volume)Ordered By: Draryl Miranda on 10-03-2023 Calcium [Mass/Vol] 8.5 mg/dL 8.5-10.1 [facility] Serum or plasma creatinine m easurement (mass/volume)Ordered By: Darryl Miranda on 10-03-2023 Creatinine [Mass/Vol] 0.72 mg/dL 0.70-1.30 [facility] Comment on above: The validity of the calculated GFR & GFRAA in patients over 70 years has not been determined. Clinical correlation is essential. Serum or plasma thyroid stim ulating hormone (TSH) measurement (units/volume)Ordered By: Darryl Miranda on 10-03-2023 TSH Qn 1.91 uIU/mL 0.358-3.74 [facility] Serum or plasma urea nitroge n measurement (mass/volume)Ordered By: Darryl Miranda on 10-03-2023 Urea nitrogen [Mass/Vol] 10 mg/dL 7-18 [facility] Thin prep Papanicolaou smear with manual screeningOrdered By: Darryl Miranda on 10-03-2023 Thin prep Papanicolaou smear with manual screening 3.3 g/dL 3.2-5.0 [facility] Thin prep Papanicolaou smear with manual screening 24 U/L 15-37 [facility] Thin prep Papanicolaou smear with manual screening 5 5-15 [facility] Whole blood hemoglobin A1c/t otal hemoglobin ratio (mass fraction)Ordered By: Darryl Miranda on 10-03-2023 HbA1c (Bld) [Mass fraction] 5.3 % 3.8-5.6 [facility] Comment on above: Normal < 5.7 % Predi abetic 5.7 - 6.4 % Diabetic >or= 6.5 % Please note range changes. Absolute lymphocyte countOrd ered By: Sudarshan Boyle on 04-09-2023 Lymphocytes Auto (Unsp spec) [#/Vol] 0.99 10*3/uL 0.83-4.51 [facility] Basophil percentageOrdered B y: Sudarshan Boyle on 04-09-2023 Basophils/100 WBC (Bld) 0.8 % 0-1 [facility] Bilirubin [Mass/Vol] 0.70 mg/dL 0.20-1.00 [facility] Comment on above: For patients on eltr ombopag therapy, use of Dimension [place] TBIL is not recommended. Chloride [Moles/Vol] 105 mmol/L 98-107 [facility] Cholesterol [Mass/Vol] 162 mg/dL <200 [facility] Comment on above: <200 mg/dL Desirable 200-240 mg/dL Borderline >240 mg/dL High Risk Eosinophils/100 WBC (Bld) 3.9 % 0-5 [facility] Glucose [Mass/Vol] 88 mg/dL 74-106 [facility] Neutrophils (Bld) [#/Vol] 3.2 10*3/uL 2.0-7.7 [facility] Neutrophils/100 WBC (Bld) 63.5 % 47-70 [facility] Potassium [Moles/Vol] 3.9 mmol/L 3.5-5.1 [facility] Protein [Mass/Vol] 6.8 g/dL 6.4-8.2 [facility] Sodium [Moles/Vol] 141 mmol/L 136-145 [facility] Triglyceride [Mass/Vol] 169 mg/dL <199 [facility] Comment on above: The drugs N-Acetylcy steine and Metamizole may falsely depress this assay.Serum Triglycerides Reference Interval Normal <150 mg/dL Borderline high 150 - 199 mg/dL High 200 - 499 mg/dL Very High > or = 500 mg/dL WBC (Bld) [#/Vol] 5.1 10*3/uL 4.4-11.0 [facility] Blood erythrocytes count (nu mber/volume)Ordered By: Sudarshan Boyle on 04-09-2023 RBC (Bld) [#/Vol] 4.63 10*6/uL 4.6-6.2 [facility] Blood hemoglobin measurement (mass/volume)Ordered By: Sudarshan Boyle on 04-09-2023 Hemoglobin (Bld) [Mass/Vol] 14.3 g/dL 13.0-16.5 [facility] Blood lymphocytes/100 leukoc ytesOrdered By: Sudarshan Boyle on 04-09-2023 Lymphocytes/100 WBC (Bld) 19.4 % 19-41 [facility] Blood monocytes/100 leukocyt esOrdered By: Sudarshan Boyel on 04-09-2023 Monocytes/100 WBC (Bld) 11.6 % 0-10 [facility] Blood platelet mean volumeOr dered By: Sudarshan Boyle on 04-09-2023 Platelet mean volume (Bld) [Entitic vol] 11.4 fL 6.2-12.0 [facility] Determination of erythrocyte mean corpuscular volume (MCV)Ordered By: Sudarshan Boyle on 04-09-2023 MCV (RBC) [Entitic vol] 95.2 fL 80-94 [facility] Hematocrit Auto (Bld) [Volum e fraction]Ordered By: Sudarshan Boyle on 04-09-2023 Hematocrit (Bld) [Volume fraction] 44.1 % 40-54 [facility] - Chemistry and C hemistry - challengeOrdered By: Sudarshan Boyle on 04-09-2023 ALP [Catalytic activity/Vol] 80 U/L 45-117 [facility] ALT [Catalytic activity/Vol] 26 U/L 16-61 [facility] CO2 [Moles/Vol] 32.0 mmol/L 21.0-32.0 [facility] Cobalamin (Vitamin B12) [Mass/Vol] 759 pg/mL 211-911 [facility] Globulin (S) [Mass/Vol] 3.4 g/dL 2.2-4.2 [facility] Urea nitrogen/Creatinine [Mass ratio] 18.3 mg/mg 10-20 [facility] - Hematology and Cell countsOrdered By: Sudarshan Boyle on 04-09-2023 Erythrocyte distribution width (RBC) [Entitic vol] 46.2 fL 35.1-43.9 [facility] Erythrocyte distribution width (RBC) [Ratio] 13.2 % 11.6-14.6 [facility] Immature granulocytes/100 WBC (Bld) 0.800 % 0.0-0.9 [facility] Comment on above: IG% - Immature Granu locytes (promyelocytes, myelocytes and metamyelocytes) > 1% indicates that a LEFT SHIFT is Present. MCH (RBC) [Entitic mass] 30.9 pg 27.0-32.0 [facility] Nucleated RBC/100 WBC (Bld) [Ratio] 0 % 0-5 [facility] MCHC Auto (RBC) [Mass/Vol]Or dered By: Sudarshan Boyle on 04-09-2023 MCHC (RBC) [Mass/Vol] 32.4 g/dL 32-36 [facility] No Panel InformationOrdered By: Sudarshan Boyle on 04-09-2023 Estimated GFR (MDRD) Amer 140 mL/min >60 [facility] Comment on above: GFR Calc Estimated GFR (MDRD) Non-Af Amer 116 mL/min >60 [facility] Comment on above: Non- GFR Calc Platelets bldOrdered By: Shadia Boyle on 04-09-2023 Platelets (Bld) [#/Vol] 179 10*3/uL 150-450 [facility] Serum or plasma albumin cezar urement (mass/volume)Ordered By: Sudarshan Boyle on 04-09-2023 Albumin [Mass/Vol] 3.4 g/dL 3.2-5.0 [facility] Serum or plasma albumin/glob ulin mass ratioOrdered By: Sudarshan Boyle on 04-09-2023 Albumin/Globulin [Mass ratio] 1.0 {ratio} 0.9-2.4 [facility] Serum or plasma calcium cezar urement (mass/volume)Ordered By: Sudarshan Boyle on 04-09-2023 Calcium [Mass/Vol] 9.0 mg/dL 8.5-10.1 [facility] Serum or plasma cholesterol in HDL measurement (mass/volume)Ordered By: Sudarshan Boyle on 04-09-2023 Cholesterol in HDL [Mass/Vol] 48 mg/dL >40 [facility] Comment on above: The drugs N-Acetylcy steine and Metamizole may falsely depress this assay. Reference Range HDL <40 mg/dL Low HDL Cholesterol HDL >or= 60 mg/dL High HDL Cholesterol Serum or plasma cholesterol in VLDL measurement (mass/volume)Ordered By: Sudarshan Boyle on 04-09-2023 Cholesterol in VLDL [Mass/Vol] 34 mg/dL 5-40 [facility] Serum or plasma creatinine m easurement (mass/volume)Ordered By: Sudarshan Boyle on 04-09-2023 Creatinine [Mass/Vol] 0.71 mg/dL 0.70-1.30 [facility] Comment on above: The validity of the calculated GFR & GFRAA in patients over 70 years has not been determined. Clinical correlation is essential. Serum or plasma low density lipoprotein (LDL) cholesterol measurement (mass/volume)Ordered By: Sudarshan Boyle on 04-09-2023 Cholesterol in LDL [Mass/Vol] 80 mg/dL 0-130 [facility] Serum or plasma urea nitroge n measurement (mass/volume)Ordered By: Sudarshan Boyle on 04-09-2023 Urea nitrogen [Mass/Vol] 13 mg/dL 7-18 [facility] Thin prep Papanicolaou smear with manual screeningOrdered By: Sudarshan Boyle on 04-09-2023 Thin prep Papanicolaou smear with manual screening 19 U/L 15-37 [facility] Thin prep Papanicolaou smear with manual screening 4 5-15 [facility] Absolute lymphocyte countOrd ered By: Dr. Boyle on 08-13-2022 Lymphocytes Auto (Unsp spec) [#/Vol] 0.99 10*3/uL 0.83-4.51 [facility] Basophil percentageOrdered B y: Dr. Boyle on 08-13-2022 Basophils/100 WBC (Bld) 0.6 % 0-1 [facility] Bilirubin [Mass/Vol] 0.90 mg/dL 0.20-1.00 [facility] Comment on above: For patients on eltr ombopag therapy, use of Dimension [place] TBIL is not recommended. Chloride [Moles/Vol] 103 mmol/L 98-107 [facility] Cholesterol [Mass/Vol] 142 mg/dL <200 [facility] Comment on above: <200 mg/dL Desirable 200-240 mg/dL Borderline >240 mg/dL High Risk Eosinophils/100 WBC (Bld) 4.0 % 0-5 [facility] Glucose [Mass/Vol] 101 mg/dL 74-106 [facility] Comment on above: Fasting Glucose resu lt from 100 to 125 mg/dL suggests IMPAIRED HOMEOSTASIS per A.D.A. criteria. Neutrophils (Bld) [#/Vol] 2.8 10*3/uL 2.0-7.7 [facility] Neutrophils/100 WBC (Bld) 60.2 % 47-70 [facility] Potassium [Moles/Vol] 4.4 mmol/L 3.5-5.1 [facility] Protein [Mass/Vol] 7.0 g/dL 6.4-8.2 [facility] Sodium [Moles/Vol] 140 mmol/L 136-145 [facility] Triglyceride [Mass/Vol] 81 mg/dL <199 [facility] Comment on above: The drugs N-Acetylcy steine and Metamizole may falsely depress this assay.Serum Triglycerides Reference Interval Normal <150 mg/dL Borderline high 150 - 199 mg/dL High 200 - 499 mg/dL Very High > or = 500 mg/dL WBC (Bld) [#/Vol] 4.7 10*3/uL 4.4-11.0 [facility] Blood erythrocytes count (nu mber/volume)Ordered By: Dr. Boyle on 08-13-2022 RBC (Bld) [#/Vol] 4.39 10*6/uL 4.6-6.2 [facility] Blood hemoglobin measurement (mass/volume)Ordered By: Dr. Boyle on 08-13-2022 Hemoglobin (Bld) [Mass/Vol] 14.0 g/dL 13.0-16.5 [facility] Blood lymphocytes/100 leukoc ytesOrdered By: Dr. Boyle on 08-13-2022 Lymphocytes/100 WBC (Bld) 21.0 % 19-41 [facility] Blood monocytes/100 leukocyt esOrdered By: Dr. Boyle on 08-13-2022 Monocytes/100 WBC (Bld) 13.4 % 0-10 [facility] Blood platelet mean volumeOr dered By: Dr. Boyle on 08-13-2022 Platelet mean volume (Bld) [Entitic vol] 11.2 fL 6.2-12.0 [facility] Determination of erythrocyte mean corpuscular volume (MCV)Ordered By: Dr. Boyle on 08-13-2022 MCV (RBC) [Entitic vol] 96.6 fL 80-94 [facility] Hematocrit Auto (Bld) [Volum e fraction]Ordered By: Dr. Boyle on 08-13-2022 Hematocrit (Bld) [Volume fraction] 42.4 % 40-54 [facility] - Chemistry and C hemistry - challengeOrdered By: Dr. Boyle on 08-13-2022 ALP [Catalytic activity/Vol] 82 U/L 45-117 [facility] ALT [Catalytic activity/Vol] 25 U/L 16-61 [facility] CO2 [Moles/Vol] 30.0 mmol/L 21.0-32.0 [facility] Globulin (S) [Mass/Vol] 3.4 g/dL 2.2-4.2 [facility] Urea nitrogen/Creatinine [Mass ratio] 15.6 mg/mg 10-20 [facility] - Hematology and Cell countsOrdered By: Dr. Boyle on 08-13-2022 Erythrocyte distribution width (RBC) [Entitic vol] 45.3 fL 35.1-43.9 [facility] Erythrocyte distribution width (RBC) [Ratio] 12.7 % 11.6-14.6 [facility] Immature granulocytes/100 WBC (Bld) 0.800 % 0.0-0.9 [facility] Comment on above: IG% - Immature Granu locytes (promyelocytes, myelocytes and metamyelocytes) > 1% indicates that a LEFT SHIFT is Present. MCH (RBC) [Entitic mass] 31.9 pg 27.0-32.0 [facility] Nucleated RBC/100 WBC (Bld) [Ratio] 0 % 0-5 [facility] MCHC Auto (RBC) [Mass/Vol]Or dered By: Dr. Boyle on 08-13-2022 MCHC (RBC) [Mass/Vol] 33.0 g/dL 32-36 [facility] No Panel InformationOrdered By: Dr. Boyle on 08-13-2022 Estimated GFR (MDRD) Amer 128 mL/min >60 [facility] Comment on above: GFR Calc Estimated GFR (MDRD) Non-Af Amer 106 mL/min >60 [facility] Comment on above: Non- GFR Calc Prostate Specific Antigen Screen 0.96 ng/mL 0.00-4.00 [facility] Comment on above: This test was perfor med using the TPSA assay method for [employer]uls[employer] chemistry system. Values obtained with differentassay methods cannot be used interchangably.When changing PSA assays in the course of monitoring apatient, additional sequential testing should be carriedout to confirm baseline values. Thyroid Stimulating Hormone (TSH) 1.46 uIU/mL 0.358-3.74 [facility] Platelets bldOrdered By: Dr. Boyle on 08-13-2022 Platelets (Bld) [#/Vol] 180 10*3/uL 150-450 [facility] Serum or plasma albumin cezar urement (mass/volume)Ordered By: Dr. Boyle on 08-13-2022 Albumin [Mass/Vol] 3.6 g/dL 3.2-5.0 [facility] Serum or plasma albumin/glob ulin mass ratioOrdered By: Dr. Boyle on 08-13-2022 Albumin/Globulin [Mass ratio] 1.1 {ratio} 0.9-2.4 [facility] Serum or plasma calcium cezar urement (mass/volume)Ordered By: Dr. Boyle on 08-13-2022 Calcium [Mass/Vol] 9.3 mg/dL 8.5-10.1 [facility] Serum or plasma cholesterol in HDL measurement (mass/volume)Ordered By: Dr. Boyle on 08-13-2022 Cholesterol in HDL [Mass/Vol] 49 mg/dL >40 [facility] Comment on above: The drugs N-Acetylcy steine and Metamizole may falsely depress this assay. Reference Range HDL <40 mg/dL Low HDL Cholesterol HDL >or= 60 mg/dL High HDL Cholesterol Serum or plasma cholesterol in VLDL measurement (mass/volume)Ordered By: Dr. Boyle on 08-13-2022 Cholesterol in VLDL [Mass/Vol] 16 mg/dL 5-40 [facility] Serum or plasma creatinine m easurement (mass/volume)Ordered By: Dr. Boyle on 08-13-2022 Creatinine [Mass/Vol] 0.77 mg/dL 0.70-1.30 [facility] Comment on above: The validity of the calculated GFR & GFRAA in patients over 70 years has not been determined. Clinical correlation is essential. Serum or plasma low density lipoprotein (LDL) cholesterol measurement (mass/volume)Ordered By: Dr. Boyle on 08-13-2022 Cholesterol in LDL [Mass/Vol] 77 mg/dL 0-130 [facility] Serum or plasma urea nitroge n measurement (mass/volume)Ordered By: Dr. Boyle on 08-13-2022 Urea nitrogen [Mass/Vol] 12 mg/dL 7-18 [facility] Thin prep Papanicolaou smear with manual screeningOrdered By: Dr. Boyle on 08-13-2022 Thin prep Papanicolaou smear with manual screening 23 U/L 15-37 [facility] Thin prep Papanicolaou smear with manual screening 7 5-15 [facility] Absolute lymphocyte counton 11-07-2021 Lymphocytes Auto (Unsp spec) [#/Vol] 0.76 10*3/uL 0.83-4.51 [facility] Work Phone: Basophil percentageon 2021 Basophils/100 WBC (Bld) 0.6 % 0-1 [facility] Work Phone: Bilirubin [Mass/Vol] 0.80 mg/dL 0.20-1.00 [facility] Work Phone: Comment on above: For patients on eltr ombopag therapy, use of Dimension [place] TBIL is not recommended. Chloride [Moles/Vol] 107 mmol/L 98-107 [facility] Work Phone: Eosinophils/100 WBC (Bld) 2.8 % 0-5 [facility] Work Phone: Glucose [Mass/Vol] 98 mg/dL 74-106 [facility] Work Phone: Neutrophils (Bld) [#/Vol] 3.3 10*3/uL 2.0-7.7 [facility] Work Phone: Neutrophils/100 WBC (Bld) 70.0 % 47-70 [facility] Work Phone: Potassium [Moles/Vol] 3.5 mmol/L 3.5-5.1 [facility] Work Phone: Protein [Mass/Vol] 6.6 g/dL 6.4-8.2 [facility] Work Phone: Sodium [Moles/Vol] 142 mmol/L 136-145 [facility] Work Phone: WBC (Bld) [#/Vol] 4.7 10*3/uL 4.4-11.0 [facility] Work Phone: Blood erythrocytes count (nu mber/volume)on 11-07-2021 RBC (Bld) [#/Vol] 4.31 10*6/uL 4.6-6.2 [facility] Work Phone: Blood hemoglobin measurement (mass/volume)on 11-07-2021 Hemoglobin (Bld) [Mass/Vol] 14.0 g/dL 13.0-16.5 [facility] Work Phone: Blood lymphocytes/100 leukoc yteson 11-07-2021 Lymphocytes/100 WBC (Bld) 16.3 % 19-41 [facility] Work Phone: Blood monocytes/100 leukocyt eson 11-07-2021 Monocytes/100 WBC (Bld) 9.7 % 0-10 [facility] Work Phone: Blood platelet mean volumeon 11-07-2021 Platelet mean volume (Bld) [Entitic vol] 10.9 fL 6.2-12.0 [facility] Work Phone: Determination of erythrocyte mean corpuscular volume (MCV)on 11-07-2021 MCV (RBC) [Entitic vol] 96.5 fL 80-94 [facility] Work Phone: Hematocrit Auto (Bld) [Volum e fraction]on 11-07-2021 Hematocrit (Bld) [Volume fraction] 41.6 % 40-54 [facility] Work Phone: Laboratory - Chemistry and C hemistry - challengeon 11-07-2021 ALP [Catalytic activity/Vol] 66 U/L 45-117 [facility] Work Phone: ALT [Catalytic activity/Vol] 25 U/L 16-61 [facility] Work Phone: CO2 [Moles/Vol] 27.0 mmol/L 21.0-32.0 [facility] Work Phone: Globulin (S) [Mass/Vol] 3.3 g/dL 2.2-4.2 [facility] Work Phone: Urea nitrogen/Creatinine [Mass ratio] 17.3 mg/mg 10-20 [facility] Work Phone: Laboratory - Hematology and Cell countson 11-07-2021 Erythrocyte distribution width (RBC) [Entitic vol] 47.8 fL 35.1-43.9 [facility] Work Phone: Erythrocyte distribution width (RBC) [Ratio] 13.3 % 11.6-14.6 [facility] Work Phone: Immature granulocytes/100 WBC (Bld) 0.600 % 0.0-0.9 [facility] Work Phone: Comment on above: IG% - Immature Granu locytes (promyelocytes, myelocytes and metamyelocytes) > 1% indicates that a LEFT SHIFT is Present. MCH (RBC) [Entitic mass] 32.5 pg 27.0-32.0 [facility] Work Phone: Nucleated RBC/100 WBC (Bld) [Ratio] 0 % 0-5 [facility] Work Phone: MCHC Auto (RBC) [Mass/Vol]on 11-07-2021 MCHC (RBC) [Mass/Vol] 33.7 g/dL 32-36 [facility] Work Phone: No Panel Informationon 11-07 Estimated GFR (MDRD) Amer 160 mL/min >60 [facility] Work Phone: Comment on above: GFR Calc Estimated GFR (MDRD) Non-Af Amer 132 mL/min >60 [facility] Work Phone: Comment on above: Non- GFR Calc Thyroid Stimulating Hormone (TSH) 1.06 uIU/mL 0.358-3.74 [facility] Work Phone: Platelets bldon 11-07-2021 Platelets (Bld) [#/Vol] 159 10*3/uL 150-450 [facility] Work Phone: Serum or plasma albumin cezar urement (mass/volume)on 11-07-2021 Albumin [Mass/Vol] 3.3 g/dL 3.2-5.0 [facility] Work Phone: Serum or plasma albumin/glob ulin mass ratioon 11-07-2021 Albumin/Globulin [Mass ratio] 1.0 {ratio} 0.9-2.4 [facility] Work Phone: Serum or plasma calcium cezar urement (mass/volume)on 11-07-2021 Calcium [Mass/Vol] 8.6 mg/dL 8.5-10.1 [facility] Work Phone: Serum or plasma creatinine m easurement (mass/volume)on 11-07-2021 Creatinine [Mass/Vol] 0.64 mg/dL 0.70-1.30 [facility] Work Phone: Comment on above: The validity of the calculated GFR & GFRAA in patients over 70 years has not been determined. Clinical correlation is essential. Serum or plasma urea nitroge n measurement (mass/volume)on 11-07-2021 Urea nitrogen [Mass/Vol] 11 mg/dL 7-18 [facility] Work Phone: Thin prep Papanicolaou smear with manual screeningon 11-07-2021 Thin prep Papanicolaou smear with manual screening 27 U/L 15-37 [facility] Work Phone: Thin prep Papanicolaou smear with manual screening 8 5-15 [facility] Work Phone: Clinical Summary: Kevin gomez 07-27-2021 [facility] OP Visit Invalid Interpretation Code [facility] Work Phone: Vital Signs Date Time Vital Sign Value Performing Clinician Facility 12-09-2024 13:12-0400 Body height 167.[address] Sudarshan Boyle DO Work Phone: [facility] 12-09-2024 13:12-0400 Body mass index (BMI) [Ratio] 30.4 kg/m2 Dr. Sudarshan Boyle DO Work Phone: [facility] 12-09-2024 13:12-0400 Body weight 85.[address] Sudarshan Boyle DO Work Phone: [facility] 12-09-2024 13:12-0400 Diastolic blood pressure 82 mm[Hg] Dr. Sudarshan Boyle DO Work Phone: [facility] 12-09-2024 13:12-0400 Heart rate 68 /min Dr. Sudarshan Boyle DO Work Phone: [facility] 12-09-2024 13:12-0400 Respiratory rate 16 /min Dr. Sudarshan Boyle DO Work Phone: [facility] 12-09-2024 13:12-0400 SaO2% (BldA) [Mass fraction] 95 % Dr. Sudarshan Boyle DO Work Phone: [facility] 12-09-2024 13:12-0400 Systolic blood pressure 135 mm[Hg] Dr. Sudarshan Boyle DO Work Phone: [facility] 12-07-2024 08:27-0400 Body temperature 97.9 [degF] Dr. Sudarshan Boyle DO Work Phone: [facility] 12-07-2024 08:27-0400 Diastolic blood pressure 86 mm[Hg] Dr. Sudarshan Boyle DO Work Phone: [facility] 12-07-2024 08:27-0400 Heart rate 65 /min Dr. Sudarshan Boyle DO Work Phone: [facility] 12-07-2024 08:27-0400 Respiratory rate 16 /min Dr. Sudarshan Boyle DO Work Phone: [facility] 12-07-2024 08:27-0400 SaO2% (BldA) [Mass fraction] 98 % Dr. Sudarshan Boyle DO Work Phone: [facility] 12-07-2024 08:27-0400 Systolic blood pressure 132 mm[Hg] Dr. Sudarshan Boyle DO Work Phone: [facility] 09-17-2024 09:26-0400 Body height 167.[address] Sudarshan Boyle DO Work Phone: [facility] 09-17-2024 09:26-0400 Body mass index (BMI) [Ratio] 30.5 kg/m2 Dr. Sudarshan Boyle DO Work Phone: [facility] 09-17-2024 09:26-0400 Body temperature 98.2 [degF] Dr. Sudarshan Boyle DO Work Phone: [facility] 09-17-2024 09:26-0400 Body weight 85.[address] Sudarshan Boyle DO Work Phone: [facility] 09-17-2024 09:26-0400 Diastolic blood pressure 80 mm[Hg] Dr. Sudarshan Boyle DO Work Phone: [facility] 09-17-2024 09:26-0400 Heart rate 66 /min Dr. Sudarshan Boyle DO Work Phone: [facility] 09-17-2024 09:26-0400 Respiratory rate 16 /min Dr. Sudarshan Boyle DO Work Phone: [facility] 09-17-2024 09:26-0400 SaO2% (BldA) [Mass fraction] 97 % Dr. Sudarshan Boyle DO Work Phone: [facility] 09-17-2024 09:26-0400 Systolic blood pressure 166 mm[Hg] Dr. Sudarshan Boyle DO Work Phone: [facility] 06-24-2024 12:47-0500 Body mass index (BMI) [Ratio] 31 kg/m2 Dr. Sudarshan Boyle DO Work Phone: [facility] 06-24-2024 12:47-0500 Body weight 87.[address] Sudarshan Boyle DO Work Phone: [facility] 09-29-2023 09:52-0400 Body height 167.[address] Sudarshan Boyle Work Phone: [facility] 09-29-2023 09:52-0400 Body mass index (BMI) [Ratio] 31.3 kg/m2 Dr. Sudarshan Boyle Work Phone: [facility] 09-29-2023 09:52-0400 Body temperature 98.4 [degF] Dr. Sudarshan Boyle Work Phone: [facility] 09-29-2023 09:52-0400 Body weight 88.[address] Sudarshan Boyle Work Phone: [facility] 09-29-2023 09:52-0400 Diastolic blood pressure 80 mm[Hg] Dr. Sudarshan Boyle Work Phone: [facility] 09-29-2023 09:52-0400 Heart rate 71 /min Dr. Sudarshan Boyle Work Phone: [facility] 09-29-2023 09:52-0400 Respiratory rate 17 /min Dr. Sudarshan Boyle Work Phone: [facility] 09-29-2023 09:52-0400 SaO2% (BldA) [Mass fraction] 98 % Dr. Sudarshan Boyle Work Phone: [facility] 09-29-2023 09:52-0400 Systolic blood pressure 142 mm[Hg] Dr. Sudarshan Boyle Work Phone: [facility] NEGATED: Highlighted [id number] 13:02-0500 Body height 167.64 cm Wendy Evy AT [facility] Work Phone: NEGATED: Highlighted [id number] 13:02-0500 Body height 168 cm Wendy Evy AT [facility] Work Phone: NEGATED: Highlighted [id number] 13:02-0500 Body mass index (BMI) [Ratio] 29.97 kg/m2 Wendy Evy AT [facility] Work Phone: NEGATED: Highlighted [id number] 13:02-0500 Body weight 83.92 kg Wendy Evy AT [facility] Work Phone: NEGATED: Highlighted [id number] 13:02-0500 Body weight 84 kg Wendy Evy AT [facility] Work Phone: Encounters Encounter Date Encounter Type Care Provider Facility Start: 01-20-2025 ambulatory Robi Iverson Facility :[facility] Start: 12-23-2024 ambulatory Robi Iverson Facility :[facility] Start: 12-09-2024 End: 12-09-[address] Robi Iverson MD -[facility] Work Phone: Start: 12-09-2024 End: 12-09-[address] Sudarshan Boyle DO Work Phone: -[facility] Start: 12-07-2024 End: 12-07-2024 Patient encounter procedure Lobo Martínez [place] -[facility] Work Phone: Start: 12-07-2024 End: 12-07-[address] Sudarshan Boyle DO Work Phone: [facility] Start: 10-18-2024 Non-patient / Non-visit Dr. Yanci mancuso MD -[facility] Work Phone: Start: 10-18-2024 End: 10-18-[address] Sudarshan Boyle DO Work Phone: [facility] Work Phone: Start: 10-18-2024 End: 10-18-[address] Sudarshan Boyle DO -Pulmonary Services/Neurology Work Phone: Start: 10-18-2024 End: 10-18-2024 ambulatory Sudarshan Boyle Facility:[facility] Start: 09-17-2024 End: 09-17-2024 Patient encounter procedure Josue WYLIE -[facility] Work Phone: Start: 09-17-2024 End: 09-17-2024 ambulatory Josue WYLIE Facility:[facility] Start: 06-24-2024 End: 06-24-[address] Reese Guillory MD -[facility] Work Phone: Start: 06-24-2024 End: 06-24-2024 ambulatory Reese Guillory Facility:[facility] Start: 05-31-2024 End: 05-31-2024 ambulatory Sudarshan Boyle Facility:[facility] Start: 04-13-2024 ambulatory Sudarshan Boyle Facility: [facility] Start: 04-12-2024 End: 04-12-2024 ambulatory Sudarshan [facility] Facility:[facility] Start: 10-03-2023 End: 10-03-[address] Sudarshan Boyle Work Phone: [facility] Work Phone: Start: 10-03-2023 End: 10-03-[address] Sudarshan Boyle Work Phone: [facility]-Laboratory Work Phone: Start: 10-02-2023 End: 10-02-[address] Sudarshan Boyle Work Phone: [facility] Work Phone: Start: 10-02-2023 End: 10-02-[address] Sudarshan Boyle Work Phone: [facility]-MRI - [facility] Work Phone: Start: 09-29-2023 End: 09-29-[address] Sudarshan Boyle Work Phone: [facility] Neurology Work Phone: Start: 05-06-2023 Non-patient / Non-visit Dr. Charlotte Boyle Work Phone: [facility] Start: 05-06-2023 End: 05-06-[address] Sudarshan Boyle Work Phone: [facility] Work Phone: Start: 05-06-2023 End: 05-06-[address] Sudarshan Boyle Work Phone: [facility]-Pulmonary Services/Neurology Work Phone: Start: 04-09-2023 End: 04-09-2023 ambulatory [facility] Work Phone: Start: 04-09-2023 End: 04-09-2023 [facility] Start: 08-13-2022 End: 08-13-2022 ambulatory [facility] Work Phone: Start: 08-13-2022 End: 08-13-2022 Patient encounter procedure [facility] Start: 11-07-2021 End: 11-07-2021 Patient encounter procedure [facility]-Laboratory, [place] Start: 09-18-2021 End: 04-12-2022 Discharged Recurring [facility]-Physical Therapy Start: 09-18-2021 Registered Rec[facility]ring [facility]-Physical Therapy Procedures Date Procedure Procedure Detail Performing Clinician Start: 06-24-2024 X-ray of lumbosacral spine Dr. Sudarshan Boyle DO Work Phone: Start: 10-02-2023 MRI of lumbar spine Dr. Sudarshan Boyle Work Phone: Start: 07-27-2021 End: 07-27-2021 BP scrn no perf at interval Wilbert Bush MD Work Phone: Start: 07-27-2021 End: 07-27-2021 Calc BMI abv up corby f/u Wilbert Bush MD Work Phone: Start: 07-27-2021 End: 07-27-2021 Current tobacco non-user cad cap copd pv dm Wilbert Bush MD Work Phone: Start: 07-27-2021 End: 07-27-2021 Docrev cur meds by eli clin Wilbert Bush MD Work Phone: Start: 07-27-2021 End: 07-27-2021 Pain doc pos and plan Wilbert Bush MD Work Phone: Start: 07-27-2021 End: 07-27-2021 Patient encounter procedure Wilbert Bush MD Work Phone: NEGATED: Highlighted rowStart: 07-27-2021 End: 07-27-2021 Documentation of current medications Wendy Ratliff AT Plan of Treatment Date Care Activity Detail Author Start: 12-09-2024 Evaluation of diagno [facility] study results [facility] Start: 10-03-2023 [place] and lambda light chains [facility] Start: 10-03-2023 Thiamine measurement [facility] Start: 07-27-2021 End: 07-27-2021 Patient encounter procedure [facility] Work Phone: Evaluation of diagno stic study results [facility] [place]/lambda light chain ratio [facility] Lambda light chains. free [Mass/volume] in Serum or Plasma [facility] Stress echocardiography [facility] Urine kappa light ch ain measurement [facility] US Heart [facility] Immunizations Immunization Date Immunization Notes Care Provider Fa cility 08-30-2020 [facility] 08-02-2020 Covid ([facility]) [facility] 10-17-2018 tetanus toxoid, redu pavan diphtheria toxoid, and acellular pertussis vaccine, adsorbed [facility] Payers Date Payer Category Payer Private Health Insurance [id number] 2024 Self-pay [id number] 2016 Medicare [id number] 2016 Private Health Insurance [id number] Unknown [id number] 2.16.8 [id number] Unknown [id number] 2.16.8 [id number] Unknown [id number] 2.16.8 [id number] Unknown [id number] 2.16.8 [id number] Unknown [id number] 2.16.8 [id number] Unknown [id number] 2.16.8 [id number] Unknown [id number] 2.16.8 [id number] Unknown [id number] 2.16.8 [id number] Unknown [id number] 2.16.8 [id number] Unknown [id number] 2.16.8 [id number] Unknown [id number] 2.16.8 [id number] Unknown [id number] 2.16.8 [id number] Unknown [id number] 2.16.8 [id number] Social History Date Type Detail Facility Start: 01-29-2020 End: 01-29-2020 Assertion Unknown if ever smoked [facility] Work Phone: Start: 09-21-2017 None [facility] Start: 05-31-2019 With Family [facility] Start: 04-25-2021 Non-smoker [facility] Start: 1950 Sex Assigned At Male W [facility] Start: 05-26-2024 [facility] ([facility] Medical Equipment Procedure Code Equipment Code Equipment Origin al Text Equipment Identifier Dates STENT,URETERAL 6 FR PIG [id number] FDA Start: 09-21-2017 STENT,URETERAL 6 FR PIG 6X26 FDA Start: 09-21-2017 STENT,URETERAL 6 FR PIG 6X26 FDA Start: 09-21-2017 STENT,URETERAL 6 FR PIG 6X26 FDA Start: 09-21-2017 STENT,URETERAL 6 FR PIG 6X26 FDA Start: 09-21-2017 STENT,URETERAL 6 FR PIG 6X26 FDA Start: 09-21-2017 STENT,URETERAL 6 FR PIG 6X26 FDA Start: 09-21-2017 STENT,URETERAL 6 FR PIG 6X26 FDA Start: 09-21-2017 STENT,URETERAL 6 FR PIG 6X26 FDA Start: 09-21-2017 STENT,URETERAL 6 FR PIG 6X26 FDA Start: 09-21-2017 Clinical Notes 05-06-2023 to 12-07-2024 Note Date & Type Note Facility 12-07-2024 Progress note [facility] 12-07-2024 Progress note Note Date/Time December 07, 2024 8:44am [facility] [address], [address] [place] [address] OFFICE VISIT Date of Service: 12/07/24 MR#: [id number] Acct: [id number] Name: RICHARD HERNÁNDEZ Rep #: [id number] : 1950 Provider: DEJAN Cruz Age/Sex: 74/M Location[facility] Status: Signed Intake Vital Signs 09/17/24 09:26 12/07/24 08:27 Height 5 ft 6 in Weight: 189 lb 2 oz BMI 30.5 BP 166/80 H 132/86 H Blood Pressure Location Lt brachial Position Sitting Sitting Respiration 16 16 Pulse 66 65 Pulse Source NIBP Temp 98.2 F 97.9 F Temp Source Oral Oral Pulse Oximetry (%) 97 98 Oxygen Delivery Method room air room air Intake Visit Reasons: RASH/BUMPS Accompanied by: Self Allergies cinnamon Allergy (Verified 12/07/24 08:25) Swelling molasses Allergy (Verified 12/07/24 08:25) Swelling duloxetine Adverse Reaction (Verified 12/07/24 08:25) Tired, Light headed olmesartan medoxomil (From Benicar) Adverse Reaction (Verified 12/07/24 08:25) Unknown Medications ?Medication ?Instructions ?Recorded ?Confirmed ?Type fish oil-dha-epa 1,200 mg-144 2 ea PO DAILY 03/12/16 0 12/07/24 History mg-216 mg capsule magnesium 250 mg tablet 250 mg PO DAILY 03/12/1607/03 History metoprolol tartrate 50 mg tablet 50 mg PO QHS 03/12/16 12/07/24 History multivitamin with folic acid 400 1 tab PO DAILY 12/07/24 History mcg tablet potassium chloride 10 mEq 10 meq PO BID 03/12/1612/07 History tablet,extended release(part/cryst) psyllium husk 0.4 gram capsule 1 cap PO BID 03/12/16 0 12/07/24 History aspirin 81 mg tablet,delayed 81 mg PO DAILY 06/13/16 0 12/07/24 History release atorvastatin 40 mg tablet 40 mg PO QHS 08/29/18 History omeprazole 40 mg capsule,delayed 40 mg PO DAILY 12/07/24 History release ferrous sulfate 325 mg (65 mg 325 mg PO MOWEFR 4 12/07/24 History iron) tablet (Feosol) amlodipine 5 mg tablet 5 mg PO QDAY 09/17/24 History biotin 10 mg tablet 10 mg PO QDAY 09/17/2412/07 History duloxetine 60 mg capsule,delayed mg PO 09/17/24 History release prednisone 10 mg tablet 10 mg PO DAILY #30 tabs 07/0312/07/24 Rx Have you fallen in the past year?: No Nurse's Note: Patient has a rash and lumps on bilateral arms and on the back of his neck. Patient states that it happen on of last week. Patient was using OTC medication but it wasn't helping it. Patient states it itches. [facility] Medical History Wears glasses Low iron High cholesterol Back pain Heartburn Gastric reflux CPAP (continuous positive airway pressure) dependence Sleep apnea History of stress test (~2011) History of kidney stones Family history of colon cancer in father Personal history of colonic polyps Surgical History History of cataract extraction with lens replacement (~2022) History of medial meniscus repair of right knee (~1979) History of nasal surgery History of foot surgery History of repair of rotator cuff (2021) History of cystoscopy Hx of colonoscopy Family History Father Colon cancer Social History household members: spouse number of children: 2 current occupational status: retired Smoking Status: Never smoker alcohol intake: never substance use type: does not use HPI HPI Details: RICHARD HERNÁNDEZ, is a 74 M who presents to the office today for initial evaluationstatus post poison danny exposure w/ rash to bilateral forearms and on the back ofhis neck while hiking. Patient states he has used multiple [id number] topical applications without relief of symptoms. No complaints of constricted/pruritic airway or chest pain/shortness of breath/wheeze/dyspnea on exertion. No other associated symptoms and no other alleviating/aggravating factors. ROS Const Constitutional: No other (As above) Exam Const General: cooperative, healthy appearing and no acute distress Nutritional Appearance: average body habitus Orientation: alert, awake and oriented x3 HENMT Head: normal to inspection Ears: hearing grossly normal bilaterally, external ears normal, TM's normal bilaterally and EAC's normal Nose: external nose normal, nares normal, septum normal and no nasal discharge Face and sinus: normal facial exam, sinuses nontender and face symmetric Mouth: oral mucosae normal, lip normal, tongue normal and oropharynx normal Throat: posterior oropharynx normal, tonsils normal, uvula midline and no postnasal drainage Eyes General: appearance normal, both eyes and all related structures Neck Neck: normal visual inspection, full ROM, no lymphadenopathy, no meningeal signsand supple Neck mass: No Thyroid: thyroid normal Lymphatic: no lymphadenopathy noted Chest Chest palpation & inspection: normal inspection of the chest Resp Effort & Inspection: normal respiratory effort and able to speak in complete sentences Auscultation: Bilateral: Clear to Auscultation Cardio Palpation: normal PMI Rate: regular rate Rhythm: regular rhythm Heart Sounds: S1 normal, S2 normal, no gallops, no murmurs and no rubs Pulses: radial pulses present GI Inspection: normal to inspection Skin General: no rashes or lesions noted Other: Except clustered vesicular rash to bilateral forearms and posterior neck Neuro General: patient alert, patient awake and patient oriented x3 Cognition: normal cognition Speech: speech normal Extrem General: normal to inspection Psych Appearance: grossly normal Mental Status: mental status grossly normal Mood: congruent mood Affect: normal affect Speech and Movement: speech and movement normal Attitude: cooperative Diagnoses Contact dermatitis due to poison danny L23.7 Assessment and Plan Assessment and Plan (1) Contact dermatitis due to poison danny: Status: Acute Plan: Prednisone as prescribed today. Supportive measures as instructed today. Follow-up with PCP in 3 to 5 days should symptoms not improve, ED sooner shouldsymptoms worsen or any other concerns develop. Patient states acknowledging understanding all the above. Coding Level of Care Code Off vis,est,level 3 Assessment and Plan Assessment and Plan Medications: New prednisone 4 tablets daily x3 days, then 3 tablets daily x3 days, then 2 tablets daily x3 days, then 1 tablet daily x3 days 10 mg PO DAILY 30 tabs 0RF Clinical Quality Measures Falls Risk Screening/Assistive Devices Have you fallen in the past year?: No 12/07/24 0844 <Electronically signed by Lobo WYLIE> Date _ Lobo WYLIE Cosigner Signature: Date (if applicable) CC: ~ [facility] Work Phone: 1(206) 888-771204-11-2025 Evaluation note* Diagnosis Onset Date Resolution Status Admit Date Peripheral neuropathy acute Sep 9:04am Right foot pain acute September 9:04am [facility] Work Phone: 1(175) 114-706604-11-2025 Evaluation note* Diagnosis Onset Date Resolution Status Admit Date Peripheral neuropathy acute Sep 9:04am Right foot pain acute September 9:04am Paroxysmal atrial fibrillation acute December 09, 2024 1:07pm Coronary atherosclerosis of [place] coronary artery chronic December 09, 2024 1:07pm Atrial fibrillation noneactive December 09, 2024 1:07pm [facility] Work Phone: 1(669) 149-707701-16-2025 Evaluation note* Diagnosis Onset Date Resolution Status Admit Date Peripheral neuropathy acute Jun 12:40pm Spinal stenosis of lumbar region with neurogenic claudication acute June 24 12:40pm Spondylolisthesis, lumbar region acute June 24 12:40pm Peripheral neuropathy acute Sep 9:04am Right foot pain acute September 9:04am [facility] Work Phone: 1(523) 623-245912-23-2024 [facility] Medical Records Department [address] [place] [address] [place] [address] History Physical Exam 05/31/24717 MR#: [id number] Acct: [id number] Name: RICHARD HERNÁNDEZ Rep #: [id number] : 1950 74 From: James Crane DO PCP: Dr. Sudarshan Boyle, DO Status:[facility] Location: [place] [address] HPI - General General Date of Admission: 05/31/24 Date of Service: 05/31/24 Chief Complaint: Screening colonoscopy HPI Narrative RICHARD HERNÁNDEZ, is a 74 M who presents today for screening colonoscopy. He had a colonoscopy approximately 5 years ago because of a history of polyps. He comes in for surveillance colonoscopy today. He is not have any abdominal pain. He does not have any chest pain or shortness of breath. He does have a history of obstructive sleep apnea, hypertension, elevated BMI SOCIAL reflux disease along with coronary artery disease and is on aspirin on a daily basis. [facility] Medical History Wears glasses Low iron High cholesterol Back pain Heartburn Gastric reflux CPAP (continuous positive airway pressure) dependence Sleep apnea History of stress test ( 2011) History of kidney stones Family history of colon cancer in father Personal history of colonic polyps Home Medications ???Medication ???Instructions ???Recorded ???Last Taken ???Type fish oil-dha-epa 1,200 mg-144 2 ea PO DAILY 03/12/16 05/27/24 History mg-216 mg capsule magnesium 250 mg tablet 250 mg PO DAILY 03/12/16 Unknown History metoprolol tartrate 50 mg tablet 50 mg PO QHS 03/12/16 05/30/24 History multivitamin with folic acid 400 1 tab PO DAILY 03/12/16 Unknown History mcg tablet potassium chloride 10 mEq 10 meq PO BID 03/12/16 Unknown History tablet,extended release(part/cryst) psyllium husk 0.4 gram capsule 1 cap PO BID 03/12/16 05/27/24 History aspirin 81 mg tablet,delayed 81 mg PO DAILY 06/13/16 05/27/24 History release atorvastatin 40 mg tablet 40 mg PO QHS 08/29/18 Unknown History omeprazole 40 mg capsule,delayed 40 mg PO DAILY 05/31/19 05/31/24 History release ferrous sulfate 325 mg (65 mg 325 mg PO MOWEFR 09/29/23 05/27/24 History iron) tablet (Feosol) Allergy/AdvReac Type Severity Reaction Status Date / Time cinnamon Allergy Swelling Verified 05/31/24 07:05 molasses Allergy Swelling Verified 05/31/24 07:05 duloxetine AdvReac Tired, Verified 05/31/24 07:05 Light headed olmesartan medoxomil (From AdvReac Unknown Verified 05/31/24 07:05 Benicar) Family History Father Colon cancer Surgical History History of cataract extraction with lens replacement ( 2022) History of medial meniscus repair of right knee ( 1979) History of nasal surgery History of foot surgery History of repair of rotator cuff (2021) History of cystoscopy Hx of colonoscopy Social History household members: spouse number of children: 2 current occupational status: retired Smoking Status: Never smoker alcohol intake: never substance use type: does not use Vital Signs Vital Signs Vital Signs: 05/31/24 07:10 05/31/24 07:10 Temperature 97.6 F L Temperature Source Temporal Pulse Rate 67 Respiratory Rate 16 Respiratory Pattern Normal Blood Pressure 137/79 H Blood Pressure Mean 98 Blood Pressure Source Monitor Blood Pressure Position Semi-Fowlers Blood Pressure Location Right Arm Pulse Ox 97 Oxygen Delivery Method Room Air Weight Weight: 186 lb 15.232 oz Body Mass Index (BMI) 30.2 Physical Exam Const alert, oriented x3, no apparent distress and healthy appearing General Appearance: cooperative GI normal to inspection, nondistended, normoactive bowel sounds, soft to palpation, non-tender and non- distended Percussion: normal to percussion Rectal Exam: deferred Assessment Plan Assessment/Plan (1) Encounter for screening for malignant neoplasm of colon: PLAN: He was explained alternatives, risk, benefits including not withstanding bleeding, infection, sepsis, perforation, need for emergent surgery and . He will have an ASA of 3. 05/31/24 0720 Cosigner Signature (if applicable): CC: Dr. Sudarshan Boyle DO; James Crane DO [facility] Procedure noteWPro[facility] Community HospitalEvaluation noteThere may be information available, but it has not been provided by the sender.[facility] Work Phone: Evaluation noteNo assessment information available [facility] Work Phone: Evaluation note* Diagnosis Onset Date Resolution Status Polyneuropathy acute Chronic lumbar radiculopathy chronic [facility] Work Phone: Instructions* Instruction Description Start Date CompletedPatient advised to follow-up with Primary Care Physician for BMI management. [facility] Work Phone: Reason for referral (narrative)No reason for referral information availablePaulding [facility] Hospital Work Phone: Chief Complaint Chief Complaint Description Start Date right shoulder post RIGHT SH OULDER ARTHROSCOPIC ROTATOR CUFF REPAIR BICEPS TENODESIS on 05/17/2021 Preliminary chief co mplaint data, not yet signed by the author as of Advance Directives No Advanced Directives Records Found Advance Directive Response Recorded Date/ Time Advance Directives Yes June 13, 2016 9:20am Living Will Yes January 28 0 2:22am Power of Envelope Stamping Machine Operator Yes January 28, 2 020 2:22am Advance Directive Response Recorded Date/ Time Advance Directives Yes June 13, 2016 8:20am Living Will Yes January 28 0 1:22am Power of Envelope Stamping Machine Operator Yes January 28, 2 020 1:22am Advance Directive Response Recorded Date/ Time Advance Directives Yes June 13, 2016 9:20am Family History No Family History Records Found Relationship Condition Age at Onset Recorded Date/T benson Unknown Family History?No pertinent history Unkno wn September 21, 2017 7:37am Family History?No pertinent history Unkno wn October 17, 2018 2:14pm Relationship Condition Age at Onset Recorded Date/T benson Unknown Family History?No pertinent history Unkno wn September 21, 2017 6:37am Family History?No pertinent history Unkno wn October 17, 2018 1:14pm Relationship Condition Age at Onset Recorded Date/T benson father Malignant neoplasm of colon Unknown Chief Complaint and Reason for Visit Chief Complaint S/P R ROTATOR CUFF R EPAIR. DR LAGOS FAX Chief Complaint INTERVERTEBRAL DISC DEGENERATION INTERVERTEBRAL DISC DEGENERATION Chief Complaint peripheral neuropath y LOW BACK PAIN INT LABS Reason for Visit Polyneuropathy Chronic lumbar radiculopathy Chief Complaint Admit Date LUMBAR SPINE June 24, 2024 1 2:40pm RM 1 June 24, 2024 1 :04pm R FOOT PAIN/REDNESS/SWELLING September 17, 2024 9:04am AFIB October 18, 2024 8:48a m Reason for Visit Admit Date Peripheral neuropathy June 24, 2024 12:40pm Spinal stenosis of lumbar re gion with neurogenic claudication June 24, 2024 12:40pm Spondylolisthesis, lumbar region June 24, 2024 12:40pm Peripheral neuropathy September 17, 2024 9 :04am Right foot pain September 17, 2024 9:0 4am Chief Complaint Admit Date R FOOT PAIN/REDNESS/SWELLING September 17, 2024 9:04am AFIB October 18, 2024 8:48a m Atrial fibrillation October 18, 2024 9:03a m RASH/BUMPS December 07, 2024 8:21a m Reason for Visit Admit Date Peripheral neuropathy September 17, 2024 9 :04am Right foot pain September 17, 2024 9:0 4am Chief Complaint Admit Date R FOOT PAIN/REDNESS/SWELLING September 17, 2024 9:04am AFIB October 18, 2024 8:48a m Atrial fibrillation October 18, 2024 9:03a m RASH/BUMPS December 07, 2024 8:21a m Atrial fibrillation December 09, 2024 1:07p m Reason for Visit Admit Date Peripheral neuropathy September 17, 2024 9 :04am Right foot pain September 17, 2024 9:0 4am Paroxysmal atrial fibrillation December 09, 2024 1:07pm Coronary atherosclerosis of [place] coron [place] artery December 09, 2024 1:07pm Atrial fibrillation December 09, 2024 1:07p m Summary Purpose Additional Source Comments Reason for Visit (unrecogniz ed section and content) Reason For Visit Description Postop - subsequent visit Preliminary reason f or visit data, not yet signed by the author as of right shoulder post RIGHT SH OULDER ARTHROSCOPIC ROTATOR CUFF REPAIR BICEPS TENODESIS on 05/17/2021 Goals (unrecognized section and content) Goals may be documented in a n alternate sectionGoals may be documented in an alternate sectionGoals may be documented in an alternate sectionGoals may be documented in an alternate sectionGoals may be documented in an alternate sectionGoals may be documented in an alternate sectionGoals may be documented in an alternate sectionGoals may be documented in an alternate sectionGoals may be documented in an alternate sectionGoals may be documented in an alternate section Care Teams (unrecognized sec tion and content) Team Status: Active Member Role Status Dates Dr. Jay Jay Muniz MD Family Provider Active Dr. Sudarshan Boyle DO Primary Care Provider Active Team Status: Inactive Member Role Status Dates Dr. Sudarshan Boyle DO Primary Care Provider, Attendin g Provider Active Team Status: Inactive Member Role Status Dates Dr. Sudarshan Boyle DO Primary Care Prov ider, Attending Provider, Referring Provider Active Team Status: Active Member Role Status Dates Dr. Sudarshan Boyle DO Primary Care Prov ider, Referring Provider, Other Provider Active Dr. Yahaira Walton MD Attending Provider Active Team Status: Inactive Member Role Status Dates Dr. Sudarshan Boyle DO Primary Care Provider, Referrin g Provider Active Dr. Darryl Miranda MD Attending Provider Active Team Status: Active Member Role Status Dates Dr. Sudarshan Boyle DO Primary Care Provider Active Dr. Darryl Miranda MD Attending Provider, Referring Provider Active Team Status: Inactive Member Role Status Dates Dr. Sudarshan Boyle DO Primary Care Provider Active Dr. Darryl Miranda MD Attending Provider, Referring Provider Active Team Status: Active Member Role Status Dates Dr. Sudarshan Boyle DO Primary Care Provider Active Team Status: Inactive Member Role Status Dates Dr. Sudarshan Boyle DO Primary Care Provider Active Start: June 24, 2024 End: June 24, 2024 Dr. Sudarshan Boyle DO Referring Provider Active Start: June 24, 2024 End: June 24, 2024 Dr. Reese Guillory MD Attending Provider Active Start: June 24, 2024 End: June 24, 2024 Team Status: Inactive Member Role Status Dates Dr. Sudarshan Boyle DO Primary Care Provider Active Start: June 24, 2024 End: June 24, 2024 Dr. Tim Hernandez MD Attending Provider Active S tart: June 24, 2024 End: June 24, 2024 Team Status: Inactive Member Role Status Dates Dr. Sudarshan Boyle DO Primary Care Provider Active Start: September 17, 2024 End: September 17, 2024 Dr. Sudarshan Boyle DO Referring Provider Active Start: September 17, 2024 End: September 17, 2024 DEJAN Pereira Attending Provider Active Sta rt: September 17, 2024 End: September 17, 2024 Team Status: Inactive Member Role Status Dates Dr. Sudarshan Boyle DO Primary Care Provider Active Start: October 18, 2024 End: October 18, 2024 Dr. Sudarshan Boyle DO Attending Provider Active Start: October 18, 2024 End: October 18, 2024 Dr. Sudarshan Boyle DO Referring Provider Active Start: October 18, 2024 End: October 18, 2024 Team Status: Active Member Role/Relationship Status Dates Dr. Sudarshan Boyle DO Primary Care Provider Active Team Status: Inactive Member Role/Relationship Status Dates Dr. Sudarshan Boyle DO Primary Care Provider Active Start: September 17, 2024 End: September 17, 2024 Dr. Sudarshan Boyle DO Referring Provider Active Start: September 17, 2024 End: September 17, 2024 DEJAN Pereira Attending Provider Active Sta rt: September 17, 2024 End: September 17, 2024 Team Status: Inactive Member Role/Relationship Status Dates Dr. Sudarshan Boyle DO Primary Care Provider Active Start: October 18, 2024 End: October 18, 2024 Dr. Sudarshan Boyle DO Attending Provider Active Start: October 18, 2024 End: October 18, 2024 Dr. Sudarshan Boyle DO Referring Provider Active Start: October 18, 2024 End: October 18, 2024 Team Status: Active Member Role/Relationship Status Dates Dr. Sudarshan Boyle DO Primary Care Provider Active Start: October 18, 2024 Dr. Sudarshan Boyle DO Referring Provider Active Start: October 18, 2024 Dr. Yanci Anderson MD Attending Provider Active Start: October 18, 2024 Team Status: Inactive Member Role/Relationship Status Dates Dr. Sudarshan Boyle DO Primary Care Provider Active Start: December 07, 2024 End: December 07, 2024 Dr. Sudarshan Boyle DO Referring Provider Active Start: December 07, 2024 End: December 07, 2024 Lobo WYLIE, PA Attending Provider Active Start: December 07, 2024 End: December 07, 2024 Team Status: Inactive Member Role/Relationship Status Dates Dr. Sudarshan Boyle DO Primary Care Provider Active Start: December 09, 2024 End: December 09, 2024 Dr. Sudarshan Boyle DO Referring Provider Active Start: December 09, 2024 End: December 09, 2024 Dr. Robi Iverson MD Attending Provider Active Start: December 09, 2024 End: December 09, 2024 (unrecognized sect ion and content) No Status Records Found INFORMATION SOURCE (unrecogn ized section and content) DATE CREATED AUTHOR 12/22/2024 [facility] FOR RECORDS PERTAINING TO PATIENTS WHO ARE [...] BE BASED ON THE PRIMARY CLINICAL RECORDS. [employer] provides no warranty or guarantee of the accuracy or completeness of information in this document.
== END | disposition home or self-care (01) ==
LOC: CVS 07:00
PROVIDERS: PCP Family Medicine; Referring Provider Internal Medicine Cardiovascular Disease; Visit Provider Internal Medicine Cardiovascular Disease
DX: I25.10 Atherosclerotic heart disease of native coronary artery without angina pectoris (principal)
CPT/HCPCS: 93306; A4216

== ENCOUNTER → 2025-01-20 | Outpatient (CLI) | payer MEDICARE, OTHER, SELFPAY ==
--- NOTE | 2025-01-20 10:53 | STE_ITS ---
Reason For Study Reason For Study: Paroxysmal Atrial Fibrillation Stress Results Protocol: Esequiel Protocol Maximum Predicted HR: 147 bpm Target HR: 125 bpm % Maximum Predicted HR: 89 % DurationHeart Rate Stage (mm:ss) (bpm) BP Comment Baseline 77 148/90No Chest Pain Esequiel Protocol Stage I 3:00 101 150/88No Chest Pain; Mild Dyspnea Esequiel Protocol Stage II 3:00 111 160/84No Chest Pain; Moderate Dyspnea Esequiel Protocol Stage III 2:00 131 172/90No Chest Pain; Moderate Dyspnea Recovery 81 142/90No Chest Pain; No Dyspnea Stress Duration: 8:00 mm:ss Maximum Stress HR: 131 bpm METS: 10 Baseline Echocardiogram Findings Stress Echo Wall motion Data Resting WM Intermediate WM Stress WM ECHO/Stress Test Echo w/o Contrast Interpretation Summary Stress echocardiogram. 74-year-old male with a history of atrial fibrillation. Resting EKG demonstrates normal sinus rhythm with a rate of 77 bpm no intervals are noted resting blood pressure is 148/90 mmHg. The patient exercised according to regular Esequiel protocol for tota l duration of 8 minutes. Patient completed 2 minutes into stage III of the Esequiel protocol the maximum heart rate attained was 131 bpm which was 89% of max impacted heart rate the maximum workload was 10.1 metabolic equivalents. At rest there were no ST or T wave changes noted suggest ischemia and at peak exercise upsloping ST changes were noted we did not meet the criteria for ischemia. No clinical angina was noted. The test was terminated due to dyspnea. The peak blood pressure was 174/88 which was a good blood pressure response to exercise rate-pressure product was 22,500. Stress echocardiogram. The resting echocardiogram demonstrated an ejection fraction of 60%. There appe ars to be basal inferior hypokinesis and basal inferior septal hypokinesis. With exercise there is thickening of all the schaffer noted except for the basal inferior wall. A previous basal inferior and inferior septal infarct cannot be completely excluded. No new wall motion abnormalities are noted. Conclusion: Exercise stress echocardiogram with no EKG criteria for ischemia at a high work load. 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 No ischemia is noted, at a high workload. Ordering Physician: Robi Iverson Referring Physician: Robi Iverson Performed By: Maricel Driver RDCS, RVT
== END | disposition home or self-care (01) ==
LOC: CVS 10:51
PROVIDERS: PCP Family Medicine; Referring Provider Internal Medicine Cardiovascular Disease; Visit Provider Internal Medicine Cardiovascular Disease
DX: I25.10 Atherosclerotic heart disease of native coronary artery without angina pectoris (principal); I48.0 Paroxysmal atrial fibrillation
CPT/HCPCS: 93017; 93350

== ENCOUNTER → 2025-03-25 | Outpatient (CLI) | payer MEDICARE, OTHER, SELFPAY ==
[2025-03-25 10:27] LABS: Hematocrit 43.6 % (40-54); Hemoglobin 14.6 g/dL (13.0-16.5); Immature Granulocytes Count 0.040 X10^3/uL (0.0-0.0); Mean Corp Hgb Conc 33.5 g/dL (32-36); Mean Corpuscular Volume 94.2 fL (80-94); Mean Platelet Vol. 11.0 fl (6.2-12.0); NRBC Flagged by Analyzer 0 % (0-5); Platelet Count 157 K/mm3 (150-450); RBC Distribution Width CV 13.3 % (11.6-14.6); RBC Distribution Width SD 45.5 fl (35.1-43.9); Red Blood Count 4.63 M/mm3 (4.6-6.2); White Blood Count 5.3 K/mm3 (4.4-11.0)
[2025-03-25 10:57] LABS: Anion Gap 9 (5-15); BUN 12 mg/dL (4-19); BUN/Creat Ratio 18.4 RATIO (10-20); Calcium,Total 9.4 mg/dL (7.6-11.0); Carbon Dioxide 28.4 mmol/L (21.0-32.0); Chloride 102 mmol/L (98-108); Glucose 103 mg/dL (70-99); Magnesium 1.8 mg/dL (1.5-2.2); Potassium 4.1 mmol/L (3.3-5.1)
== END | disposition home or self-care (01) ==
LOC: LAB 09:48
PROVIDERS: PCP Family Medicine; Referring Provider Nurse Practitioner Gerontology; Visit Provider Nurse Practitioner Gerontology
DX: I48.0 Paroxysmal atrial fibrillation (principal)
CPT/HCPCS: 36415; 80048; 83735; 84443; 85025

== ENCOUNTER → 2025-05-17 | Outpatient (CLI) | payer MEDICARE, OTHER, SELFPAY ==
--- OUTSIDE RECORDS SUMMARY | 2025-05-17 07:22 | XMS RPT_ITS | CCD ---
Author Organization [facility] Care Team Providers Care Community Health Nurse Supervisor Name Role Phone Eleazar GORDON, Wilbert R Unavailable Dr. Sudarshan Boyle Primary Care Provider [phone] Dr. Sudarshan Boyle Referring Provider Dr. Sudarshan Boyle Other Provider Dr. Yahaira Walton Attending Provider [phone] Sudarshan Bolye Primary Care Provider [phone] Dr. Sudarshan Boyle Referring Provider Dr. Darryl Miranda Attending Provider Dr. Sudarshan Boyle DO Primary Care Provider Dr. Sudarshan Boyle DO Referring Provider [phone] Dr. Reese Guillory MD Attending Provider Dr. Tim Hernandez MD Attending Provider [phone] Josue Mae Attending Provider Dr. Sudarshan Boyle DO Attending Provider [phone] Dr. Sudarshan Boyle DO Primary Care Provider Dr. Sudarshan Boyle DO Referring Provider [phone] Dr. Yanci Anderson MD Attending Provider Lobo Torres Attending Provider [phone] Robi Iverson MD Attending Provider Dr. Robi Iverson MD Referring Provider Tamar INGRAM Dr. Sudarshan Primary Care Provider Tamar INGRAM, Dr. Haeton Referring Provider [phone] David GORDON, Dr. Dumont Attending Provider [phone] Marito CHAIN MACHINE OPERATOR-C, Susan Attending Provider [phone] Tamar INGRAM, Dr. Heaton Primary Care Physician Tamar INGRAM, Dr. Haeton Referring Provider [phone] Lobo Torres Attending Physician Kishor GORDON, Dr. Rosenbaum Attending Physician [phone] Justin GORDON, Dr. Pete Attending Physician [phone] David GORDON, Dr. Dumont Attending Physician [phone] Marito CHAIN MACHINE OPERATOR-CSusan Attending Physician [phone] Marito CHAIN MACHINE OPERATOR-C, Susan Referring Provider [phone] Tamar, Sudarshan Primary Care Unavailable Yanci Anderson Attending Unavailable Tamar, Sudarshan Referring Unavailable Tamar, Sudarshan Primary Care Unavailable Robi Iverson Referring Unavailable Robi Iverson Attending Unavailable Tamar, Sudarshan Referring Unavailable Tamar, Sudarshan Primary Care Unavailable Robi Iverson Attending Unavailable Reese Guillory Attending Unavailable Tamar, Sudarshan Primary Care Unavailable Tamar, Sudarshan Referring Unavailable Tamar, Sudarshan Primary Care Unavailable Tim Hernandez Attending Unavailable Tamar, Sudarshan Referring Unavailable Robi Iverson Attending Unavailable Tamar, Sudarshan Primary Care Unavailable Tamar, Sudarshan Referring Unavailable Marito BENAVIDEZ, Susan Attending Unavailable Tamar, Sudarshan Referring Unavailable Tamar, Sudarshan Primary Care Unavailable Marito BENAVIDEZ, Susan Attending Unavailable Josue Mae Attending Unavailable Tamar, Sudarshan Primary Care Unavailable Tamar, Sudarshan Referring Unavailable Tamar, Sudarshan Primary Care Unavailable Lobo Martínez Attending Unavailable Tamar, Sudarshan Referring Unavailable Tamar, Sudarshan Primary Care Unavailable Yanci Anderson Attending Unavailable Tamar, Sudarshan Primary Care Unavailable Tim Hernandez Attending Unavailable Tamar, Sudarshan Primary Care Unavailable Marito BENAVIDEZ, Susan Attending Unavailable Tamar, Sudarshan Primary Care Unavailable Tamar, Sudarshan Referring Unavailable James Crane Attending Unavailable James Crane Consulting Unavailable Tamar, Sudarshan Primary Care Unavailable Tamar, Sudarshan Referring Unavailable James Crane Attending Unavailable Sudarshan Boyle Primary Care Unavailable Marito BENAVIDEZ, Susan Referring Unavailable Marito BENAVIDEZ, Susan Attending Unavailable Sudarshan Boyle Attending Unavailable Sudarshan Boyle Primary Care Unavailable Sudarshan Boyle Referring Unavailable Sudarshan Boyle Primary Care Unavailable Robi Iverson Referring Unavailable Robi Iverson Attending Unavailable Allergies Allergy Classification Reported Allergen(s) Allergy Type Date of Onset Reaction(s) Facility (16 sources) Cinnamon Preparation; Translations: [CINNAMON] Drug Allergy 0 Swelling [facility] Work Phone: (1 source) olmesartan Drug Allergy 1 [facility] Work Phone: (16 sources) MOLASSES; Translations: [MOLASSES] food allergy 0 Swelling [facility] Work Phone: (15 sources) olmesartan; Translations: [olmesartan medoxomil] Drug Allergy 0 Unknown [facility] (7 sources) DULoxetine Drug Allergy 5 Tired, Light headed [facility] (1 source) DULoxetine Drug Allergy 5 [facility] Repository Medications Current Medications Medication Drug Class(es) Dates Sig (Normalized) Sig (Original) apixaban 5 mg oral tablet (9 sources) Factor Xa Inhibitor Start: 12-09-2024 End: 12-15-2024 take 1 tablet by mouth twice daily atorvastatin 40 mg oral tablet (20 sources) HMG-CoA Reductase Inhibitor Start: 03-12-2016 End: 08-29-2018 take 1 tablet by mouth at bedtime ferrous sulfate 325 mg oral tablet (10 sources) Start: 09-29-2023 take 1 tablet by mouth three times weekly Start: 09-29-2023 take 1 tablet by ginger th once daily Ferrous Sulfate (Feosol) 325 mg (65 mg iron) tablet Active 325 MG PO DAILY September 29, 2023 12:00am three times a week Start: 08-07-2020 take 1 tablet by ginger th every other day FERROUS SULFATE 325 (65 Fe) MG TABS 1 tablet by mouth every other day ferrous sulfate [id number] Heather Maldonado AT Fish Oil-Dha-Epa (7 sources) Start: 03-12-2016 Fish Oil-Dha-E pa Active 2 EACH PO DAILY March 12, 2016 9:10am Start: 03-12-2016 Fish Oil-Dha-E pa Active 2 EACH PO DAILY March 11, 2016 11:00pm Start: 03-12-2016 Fish Oil-Dha-E pa Active 2 EACH PO DAILY March 12, 2016 12:00am Fish Oil-Dha-Epa 1 EACH caps ule (7 sources) Start: 03-12-2016 take 1 capsule by mo [facility] once daily Start: 03-12-2016 take 1 capsule by mo [facility] once daily Fish Oil-Dha-Epa 1 EACH capsule Active 2 NMA PO DAILY March 12, 2016 12:00am Magnesium (14 sources) Start: 03-12-2016 take 250 mg by mouth once daily Magnesium Active 250 MG PO DAILY March 12, 2016 9:10am Start: 03-12-2016 take 1 tablet by ginger once daily Start: 03-12-2016 take 1 tablet by ginger [...] 12:00am metoprolol tartrate 50 mg oral tablet (15 sources) beta-Adrenergic Kirstie Start: 03-12-2016 take 1 tablet by mouth at bedtime Multivitamin With Folic Acid (7 sources) Start: 03-12-2016 take 1 tablet by mouth once daily Multivitamin With Folic Acid Active 1 TABLET PO DAILY March 12, 2016 9:10am Start: 03-12-2016 take 1 tablet by ginger th once daily Multivitamin With Folic Acid Active 1 TABLET PO DAILY March 11, 2016 11:00pm Start: 03-12-2016 take 1 tablet by ginger once daily Multivitamin With Folic Acid Active 1 TABLET PO DAILY March 12, 2016 12:00am Multivitamin With Folic Acid 1 TABLET tablet (7 sources) Start: 03-12-2016 take 1 tablet by ginger once daily Start: 03-12-2016 take 1 tablet by ginger th once daily Multivitamin With Folic Acid 1 TABLET tablet Active 1 {tbl} PO DAILY March 12, 2016 12:00am omeprazole 40 mg delayed release oral capsule (15 sources) Proton Pump Inhibitor Start: 05-31-2019 take 1 capsule by mouth once daily psyllium 400 mg oral capsule (15 sources) Start: 2025 Start: 03-12-2016 take 1 capsule by mo [facility] twice daily Psyllium Husk Active 1 CAP PO TWICE A DAY March 12, 2016 12:00am Start: 03-12-2016 End: 2025 take 1 capsule by mouth twice daily Psyllium Husk 0.52 GM capsule Discontinued 1 NMA PO TWICE A DAY March 12, 2016 12:00am 2025 8:53am Completed/Discontinued Medications Medication Drug Class(es) Dates Sig (Normalized) Sig (Original) amLODIPine 5 mg oral tablet (20 sources) Dihydropyridine Calcium Channel Kirstie Start: 09-17-2024 End: 02-04-2025 take 1 tablet by mouth once daily Amlodipine 5 mg tablet Discontinued 5 mg PO daily September 17, 2024 12:00am February 04, 2025 2:31pm Start: 04-13-2024 End: 05-26-2024 take 2 tablets by mouth once daily Amlodipine 5 mg tablet Discontinued 10 mg PO DAILY April 13, 2024 3:02pm May 26, 2024 1:35pm Start: 03-18-2019 End: 04-13-2024 take 1 tablet by mouth once daily Amlodipine 5 MG tablet Discontinued 5 mg PO DAILY March 18, 2019 12:00am April 13, 2024 3:04pm aspirin 81 mg delayed release oral tablet [...] 12, 2016 12:00am March 15, 2016 2:50pm biotin 10 mg oral tablet (7 sources) Start: 09-17-2024 End: 02-04-2025 take 1 tablet by mouth once daily Biotin 10 mg tablet Discontinued 10 mg PO daily September 17, 2024 12:00am February 04, 2025 2:32pm calcium polycarbophil 625 mg oral tablet (1 source) Start: 08-07-2020 take 1 tablet by mouth twice daily FIBER 625 MG TABS 1 tablet by mouth twice a day calcium polycarbophil [id number] Heather Maldonado AT cephalexin 500 mg oral capsule (20 sources) Cephalosporin Antibacterial Start: 08-29-2018 End: 09-08-2018 take 1 capsule by mouth twice daily Cephalexin (Keflex) 500 mg capsule Discontinued 500 mg PO TWICE A DAY 20 10 0 August 29, 2018 12:00am September 07, 2018 [...] limb cetirizine hydrochloride 10 mg oral capsule (14 sources) Histamine-1 Receptor Antagonist Start: 01-29-2020 End: 09-29-2023 take 1 capsule by mouth once daily Cetirizine 10 MG capsule Discontinued 10 mg PO DAILY 14 0 January 29, 2020 12:00am September 29, 2023 10:32am DULoxetine 60 mg delayed release oral capsule (20 sources) Serotonin and Norepinephrine Reuptake Inhibitor Start: 09-17-2024 End: 02-04-2025 Duloxetine 60 mg capsule,delayed release(DR/EC) Discontinued mg PO September 17, 2024 12:00am February 04, 2025 2:32pm Start: 09-29-2023 End: 10-07-2023 take 1 capsule [...] one week course of duloxetine 30mg nightly. famotidine 20 mg oral tablet (14 sources) Histamine-2 Receptor Antagonist Start: 01-29-2020 End: [...] by mouth once a day magnesium oxide [id number] Heather Maldonado AT methylPREDNISolone 4 mg oral tablet (7 sources) Corticosteroid Start: 09-17-2024 End: 09-23-2024 take 1 tablet by mouth once Methylprednisolone (Medrol (Leobardo)) 4 mg tablets,dose pack Discontinued 4 mg PO per package directions 21 6 0 September 17, 2024 12:00am September 22, 2024 12:00am September 23, 2024 12:08am [id number]- fa-vit k (1 source) Start: 08-07-2020 take 1 tablet by mouth once daily MULTIVITAMIN ADULT (MINERALS) TABS 1 tablet by mouth once a day [id number]-[id number] -fa-vit k [id number] Heather Maldnoado AT omega-3 acid ethyl esters (group home) 1000 mg oral capsule (1 source) Start: 08-07-2020 take 2 capsules by mouth once daily [id number] ETHYL ESTERS 1 GM CAPS 2 capsule by mouth once a day omega-3 acid ethyl esters [id number] Heather Maldonado AT potassium chloride 10 meq extended release oral tablet (15 sources) Start: 08-07-2020 take 1 tablet by mouth twice daily POTASSIUM CHLORIDE ER 10 MEQ CR-TABS 1 tablet by mouth twice a day potassium chloride [id number] Heather Maldonado AT Start: 03-12-2016 take 1 tablet by mouth twice d aily predniSONE 10 mg oral tablet (20 sources) Start: 12-07-2024 End: 02-04-2025 take 4 tablets by mouth once daily, then take 3 tablets by mouth once daily, then take 2 tablets by mouth once daily, then take 1 tablet by mouth once daily Prednisone 10 mg tablet Discontinued 10 mg PO DAILY 30 0 December 07, 2024 12:00am February 04, 2025 2:33pm 4 tablets daily x3 days, then 3 [...] 12:00am September 29, 2023 10:05am With food Problems Active Problems Problem Classification Problem Date Documented Date Episodic/Chronic Calculus of urinary tract (14 sources) Ureteric stone; Translations: [Calculus of ureter] 05-31-2019 Episodic Cardiac dysrhythmias (20 sources) Paroxysmal atrial fibrillation; Translations: [Paroxysmal atrial fibrillation] Onset: 11-23-2024 12-09-2024 Chronic Chronic obstructive pulmonary disease and bronchiectasis (14 sources) Bronchitis; Translations: [Bronchitis, not specified as acute or chronic] 10-17-2018 Episodic Conditions associated with dizziness or vertigo (14 sources) Benign paroxysmal positional vertigo; Translations: [Benign paroxysmal vertigo, left ear] 06-01-2019 Episodic Coronary atherosclerosis and other heart disease (20 sources) Coronary atherosclerosis; Translations: [Atherosclerotic heart disease of [place] coronary artery without angina pectoris] Onset: 01-26-2025 10-17-2018 Chronic Disorders of lipid metabolism (20 sources) Hyperlipidemia; Translations: [Hyperlipidemia, unspecified] 10-17-2018 Chronic Esophageal disorders (14 sources) Gastroesophageal reflux disease; Translations: [Gastro-esophageal reflux disease without esophagitis] 10-17-2018 Chronic Essential hypertension (20 sources) Hypertensive disorder; Translations: [Essential (primary) hypertension] 10-17-2018 Chronic Intracranial injury (14 sources) Concussion with less than 1 hour loss of consciousness; Translations: [Concussion with loss of consciousness of 30 minutes or less, initial encounter] 10-18-2018 Episodic Other acquired deformities (8 sources) Lumbar spondylolisthesis; Translations: [Spondylolisthesis, lumbar region] 06-24-2024 Episodic Other connective tissue disease (17 sources) Foot pain; Translations: [Pain in right foot] 10-17-2018 Episodic Other connective tissue disease (1 source) Pain in right foot; Translations: [Pain in right foot] 08-29-2018 Episodic Other diseases of kidney and ureters (14 sources) Hydronephrosis; Translations: [Unspecified hydronephrosis] 10-17-2018 Episodic Other nervous system disorders (9 sources) Polyneuropathy; Translations: [Polyneuropathy, unspecified] 09-29-2023 Chronic Other nervous system disorders (3 sources) Polyneuropathy, unspecified; Translations: [Unspecified hereditary and idiopathic peripheral neuropathy] Onset: 09-17-2024 09-29-2023 Chronic Other nervous system disorders (12 sources) Peripheral nerve disease ; Translations: [Polyneuropathy, unspecified] 06-24-2024 Chronic Other upper respiratory infections (14 sources) Upper respiratory infection; Translations: [Acute upper respiratory infection, unspecified] 10-17-2018 Episodic Residual codes; unclassified (14 sources) Obstructive sleep apnea of adult; Translations: [Obstructive sleep apnea (adult) (pediatric)] 10-17-2018 Chronic Skin and subcutaneous tissue infections (14 sources) Cellulitis of foot; Translations: [Cellulitis of left lower limb] 10-17-2018 Episodic Spondylosis; intervertebral disc disorders; other back problems (19 sources) Lumbar radiculopathy; Translations: [Radiculopathy, lumbar region] 09-29-2023 Episodic Superficial injury; contusion (14 sources) Abrasion of face, infected; Translations: [Abrasion of other specified part of neck, initial encounter] 10-18-2018 Episodic Unclassified (1 source) Low back pain, unspecified; Translations: [Low back pain, unspecified] Onset: 06-24-2024 Urinary tract infections (14 sources) Hemorrhagic cystitis; Translations: [Cystitis, unspecified with [...] conditions (not mental disorders or infectious disease) (20 sources) Patient encounter status; Translations: [Encounter for screening for malignant neoplasm of intestinal tract, unspecified] Onset: 06-14-2024 05-31-2019 Episodic Unclassified (1 source) Problem Results Test Name Value Interpretation Reference Range Facility Absolute lymphocyte countOrd ered By: Susan Devi on 2025 Lymphocytes Auto (Unsp spec) [#/Vol] 1.03 10*3/uL 0.83-4.51 [facility] Absolute neutrophil countOrd ered By: Susan Devi on 2025 Neutrophils (Bld) [#/Vol] 3.4 10*3/uL 2.0-7.7 [facility] Anion gap in Serum or Plasma Ordered By: Susan Devi on 2025 Anion gap [Moles/Vol] 9 mmol/L -15 [facility] Automated lymphocyte count a s percentage of total leukocytesOrdered By: Susan Devi on 2025 Lymphocytes/100 WBC Auto (Unsp spec) 19.5 % [facility] BUN/creatinine ratioOrdered By: Susan Devi on 2025 Urea nitrogen/Creatinine [Mass ratio] 18.4 mg/mg 03-28 [facility] Basic Metabolic Profile (BMP )on 2025 BUN/CRE 18.4 RATIO Normal 03-28 [facility] Comment on above: Performed By: #### L 501.5200, L501.9520, L100.0100, L500.2500 #### [facility] [address] [place], [address] Calcium [Mass/Vol] 9.4 mg/dL Normal 7.6-11.0 [facility] Comment on above: Performed By: #### L [id number], [id number], L100.0100, L500.2500 #### [facility] [address] [place], [address] Chloride [Moles/Vol] 102 mmol/L Normal 98-108 [facility] Comment on above: Performed By: #### L 501.5200, [id number], L100.0100, L500.2500 #### [facility] [address] [place], [address] CO2 [Moles/Vol] 28.4 mmol/L Normal 21.0-32.0 [facility] Comment on above: Performed By: #### L 501.5200, [id number], L100.0100, L500.2500 #### [facility] [address] [place], [address] Creatinine [Mass/Vol] 0.65 mg/dL Low 0.70-1.20 [facility] Comment on above: Performed By: #### L 501.5200, [id number], L100.0100, L500.2500 #### [facility] [address] [place], [address] GAP 9 Normal 5-15 [facility] Comment on above: Performed By: #### L 501.5200, [id number], L100.0100, L500.2500 #### [facility] [address] [place], [address] GFR/1.73 sq M.predicted among non-blacks MDRD (S/P/Bld) [Vol rate/Area] 99 mL/min/{1.73_m2} Normal >60 [facility] Comment on above: Result Comment: mL/m in/1.73m2 CKD-EPI Creatinine Equation (2020) Performed By: #### L 501.5200, [id number], L100.0100, L500.2500 #### [facility] [address] [place], [address] Glucose [Mass/Vol] 103 mg/dL High 70-99 [facility] Comment on above: Performed By: #### L 501.5200, [id number], L100.0100, L500.2500 #### [facility] [address] [place], [address] Potassium [Moles/Vol] 4.1 mmol/L Normal 3.3-5.1 [facility] Comment on above: Performed By: #### L 501.5200, [id number], L100.0100, L500.2500 #### [facility] [address] [place], [address] Sodium [Moles/Vol] 139 mmol/L Normal 133-145 [facility] Comment on above: Performed By: #### L 501.5200, [id number], L100.0100, L500.2500 #### [facility] [address] [place], [address] Urea nitrogen [Mass/Vol] 12 mg/dL Normal 4-19 [facility] Comment on above: Performed By: #### L 501.5200, [id number], L100.0100, L500.2500 #### [facility] [address] [place], [address] Basophil percentageOrdered B y: Susan Devi on 2025 Basophils/100 WBC (Bld) 0.8 % 0-1 [facility] CBC W/Diff, Automatedon 03-09 Absolute Lymph 1.03 X10 3/uL Normal 0.83-4.51 [facility] Comment on above: Performed By: #### L 501.5200, [id number], L100.0100, L500.2500 #### [facility] [address] [place], [address] Absolute Neut 3.4 X10 3/uL Normal 2.0-7.7 [facility] Comment on above: Performed By: #### L 501.5200, [id number], L100.0100, L500.2500 #### [facility] [address] [place], [address] Basophils/100 WBC (Bld) 0.8 % Normal 0-1 [facility] Comment on above: Performed By: #### L 501.5200, [id number], L100.0100, L500.2500 #### [facility] [address] [place], [address] Eosinophils/100 WBC (Bld) 5.9 % High 0-5 [facility] Comment on above: Performed By: #### L 501.5200, [id number], L100.0100, L500.2500 #### [facility] [address] [place], [address] Erythrocyte distribution width (RBC) [Ratio] 13.3 % Normal 11.6-14.6 [facility] Comment on above: Performed By: #### L 501.5200, [id number], L100.0100, L500.2500 #### [facility] [address] [place], [address] Hematocrit (Bld) [Volume fraction] 43.6 % Normal 40-54 [facility] Comment on above: Performed By: #### L 501.5200, [id number], L100.0100, L500.2500 #### [facility] [address] [place], [address] Hemoglobin (Bld) [Mass/Vol] 14.6 g/dL Normal 13.0-16.5 [facility] Comment on above: Performed By: #### L 501.5200, [id number], L100.0100, L500.2500 #### [facility] [address] [place], [address] IG% 0.800 Normal 0.0-0.9 [facility] Comment on above: Result Comment: IG% - Immature Granulocytes (promyelocytes, myelocytes and metamyelocytes) > 1% indicates that a LEFT SHIFT is Present. Performed By: #### L 501.5200, L501.9520, L100.0100, L500.2500 #### [facility] [address] [place], [address] Lymphocytes/100 WBC (Bld) 19.5 % Normal 19-41 [facility] Comment on above: Performed By: #### L 501.5200, [id number], L100.0100, L500.2500 #### [facility] [address] [place], [address] MCH (RBC) [Entitic mass] 31.5 pg Normal 27.0-32.0 [facility] Comment on above: Performed By: #### L 501.5200, [id number], L100.0100, L500.2500 #### [facility] [address] [place], [address] MCHC (RBC) [Mass/Vol] 33.5 g/dL Normal 32-36 [facility] Comment on above: Performed By: #### L 501.5200, [id number], L100.0100, L500.2500 #### [facility] [address] [place], [address] MCV (RBC) [Entitic vol] 94.2 fL High 80-94 [facility] Comment on above: Performed By: #### L 501.5200, [id number], L100.0100, L500.2500 #### [facility] [address] [place], [address] Monocytes/100 WBC (Bld) 9.5 % Normal 0-10 [facility] Comment on above: Performed By: #### L 501.5200, [id number], L100.0100, L500.2500 #### [facility] [address] [place], [address] Neutrophils/100 WBC (Bld) 63.5 % Normal 47-70 [facility] Comment on above: Performed By: #### L 501.5200, [id number], L100.0100, L500.2500 #### [facility] [address] [place], [address] Nucleated RBC (Bld) [#/Vol] 0 10*3/uL Normal 0-5 [facility] Comment on above: Performed By: #### L 501.5200, [id number], L100.0100, L500.2500 #### [facility] [address] [place], [address] Platelet mean volume (Bld) [Entitic vol] 11.0 fL Normal 6.2-12.0 [facility] Comment on above: Performed By: #### L 501.5200, [id number], L100.0100, L500.2500 #### [facility] [address] [place], [address] Platelets (Bld) [#/Vol] 157 10*3/uL Normal 150-450 [facility] Comment on above: Performed By: #### L 501.5200, [id number], L100.0100, L500.2500 #### [facility] [address] [place], [address] RBC (Bld) [#/Vol] 4.63 10*6/uL Normal 4.6-6.2 [facility] Comment on above: Performed By: #### L 501.5200, [id number], L100.0100, L500.2500 #### [facility] [address] [place], [address] RDW SD 45.5 fl High 35.1-43.9 [facility] Comment on above: Performed By: #### L 501.5200, L501.9520, L100.0100, L500.2500 #### [facility] Laboratory [address] [place], [address] WBC (Bld) [#/Vol] 5.3 10*3/uL Normal 4.4-11.0 [facility] Comment on above: Performed By: #### L 501.5200, L501.9520, L100.0100, L500.2500 #### [facility] [address] [place], [address] Carbon dioxide, total [Moles /volume] in Central venous bloodOrdered By: Susan Devi on 2025 CO2 [Moles/Vol] 28.4 mmol/L 21.0-32.0 [facility] Cardiology Visit Reporton Cardiology Visit Report [facility] [address] [place] [address] OFFICE VISIT Date of Service: 03/25/25 MR#: [id number] Acct: [id number] Name: RICHARD HERNÁNDEZ Rep #: [id number] : 1950 Provider: JOSEPHINE valdivia Age/Sex: 75/M Location: [facility] Status: Signed HPI HPI History of Present Illness Details: Patient is a pleasant 75-year-old white male who presents to the office today for a cardiovascular follow-up visit. He carries a history of paroxysmal atrial fibrillation. He is not always aware when he goes into atrial fibrillation he does have an iWatch, that he has been monitoring his atrial fibrillation on. It does show that he is in atrial fibrillation >8%. The patient had a negative ischemic stress test January 2025; his echo showed no significant valvular heart disease and an EF of 65% with normal LV function December 2024. He had a Holter monitor done in October 2024, we originally found the atrial fibrillation and he was totally asymptomatic at that time. He is now aware with the palpitations and sometimes progressive fatigue. He did bike across [place] last week, and his iWatch demonstrated 10% atrial fibrillation-mostly at night while he was sleeping. From a cardiac standpoint, the patient is doing well. He does acknowledge palpitations, and fatigue when he is in atrial fibrillation. He denies any chest pain, pressure or heaviness. He denies SOB, Orthopnea, and PND. He does not have bleeding issues; no blood in urine, stool, or nosebleeds. He denies any decrease in energy level, myalgias, or claudication. He does not have edema, or sudden weight gain. He denies lightheadedness, dizziness, syncopal or near syncopal episodes, and headaches. Intake Vital Signs 02/04/25 14:29 03/25/25 07:52 03/25/25 08:59 Height 5 ft 6 in 5 ft 6 in Weight: 189 lb BMI 30.4 BP 157/81 H 148/87 H Blood Pressure Location Rt brachial Rt brachial Position Sitting Sitting Respiration 18 Pulse 64 Pulse Source Monitor Pulse Oximetry (%) 98 Oxygen Delivery Method room air Intake Visit Reasons: Atrial fibrillation Risk Control Manager Required: No Accompanied by: Self Is patient in pain?: No Allergies cinnamon Allergy (Verified 03/25/25 09:28) Swelling molasses Allergy (Verified 03/25/25 09:28) Swelling duloxetine Adverse Reaction (Verified 03/25/25 09:28) Tired, Light headed olmesartan medoxomil (From Benicar) Adverse Reaction (Verified 03/25/25 09:28) Unknown Medications ???Medication ???Instructions ???Recorded ???Confirmed ???Type fish oil-dha-epa 1,200 mg-144 2 ea PO DAILY 03/12/16 03/25/25 Hi story mg-216 mg capsule magnesium 250 mg tablet 250 mg PO DAILY 03/12/16 03/25/25 History metoprolol tartrate 50 mg tablet 50 mg PO QHS 03/12/16 03/25/25 His tory multivitamin with folic acid 400 1 tab PO DAILY 03/12/16 03/25/25 H istory mcg tablet potassium chloride 10 mEq 10 meq PO BID 03/12/16 03/25/25 Hi story tablet,extended release(part/cryst) atorvastatin 40 mg tablet 40 mg PO QHS 08/29/18 03/25/25 His tory omeprazole 40 mg capsule,delayed 40 mg PO DAILY 05/31/19 03/25/25 H istory release ferrous sulfate 325 mg (65 mg 325 mg PO MOWEFR 09/29/23 03/25/25 History iron) tablet (Feosol) apixaban 5 mg tablet (Eliquis) 5 mg PO BID #180 tabs 12/15/24 Rx psyllium husk 0.4 gram capsule 0.4 g PO BID 03/25/25 03/25/25 His tory Ejection fraction %: 65 Have you fallen in the past year?: No Nurse's Note: Pt just returned from a 240 mile bike ride in [place] last week. [facility] Medical History Wears glasses Low iron High [...] type: does not use ROS Const Const: Positive for fatigue (only when in afib); Negative for weakness or headache(s) Eyes Eyes: Negative for change in vision ENT ENT: Negative for he (more content not included)... Normal [facility] Chloride assayOrdered By: Piotr Devi on 2025 Chloride [Moles/Vol] 102 mmol/L 98-108 [facility] Eosinophil percentageOrdered By: Susan Devi on 2025 Eosinophils/100 WBC (Bld) 5.9 % High 0-5 [facility] Erythrocyte distribution wid th ratioOrdered By: Susan Devi on 2025 Erythrocyte distribution width (RBC) [Ratio] 13.3 % 11.6-14.6 [facility] Erythrocyte distribution wid th standard deviationOrdered By: Susan Devi on 2025 Erythrocyte distribution width (RBC) [Ratio] 45.5 fl High 35.1-43.9 [facility] Glomerular filtration rate ( GFR) estimation/1.73 sq m using serum, plasma, or whole bOrdered By: Susan Devi on 2025 GFR/1.73 sq M.predicted among non-blacks MDRD (S/P/Bld) [Vol rate/Area] 99 mL/min/{1.73_m2} >60 [facility] Comment on above: mL/min/1.73m2 CKD-EP I Creatinine Equation (2020) Hematocrit Auto (Bld) [Volum e fraction]Ordered By: Susan Devi on 2025 Hematocrit (Bld) [Volume fraction] 43.6 % 40-54 [facility] Hemoglobin measurementOrdere d By: Susan Devi on 2025 Hemoglobin (Bld) [Mass/Vol] 14.6 g/dL 13.0-16.5 [facility] Immature granulocytes/100 WB C Auto (Bld)Ordered By: Susan Devi on 2025 Immature granulocytes/100 WBC (Bld) 0.800 % 0.0-0.9 [facility] Comment on above: IG% - Immature Granu locytes (promyelocytes, myelocytes and metamyelocytes) > 1% indicates that a LEFT SHIFT is Present. MCV (mean corpuscular volume ) determinationOrdered By: Susan Devi on 2025 MCV (RBC) [Entitic vol] 94.2 fL High 80-94 [facility] Magnesiumon 2025 Magnesium [Mass/Vol] 1.8 mg/dL Normal 1.5-2.2 [facility] Comment on above: Performed By: #### L 501.5200, L501.9520, L100.0100, L500.0355 #### [facility] [address] [place], [address] Magnesium measurement (mass/ volume)Ordered By: Susan Devi on 2025 Magnesium (Unsp spec) [Mass/Vol] 1.8 mg/dL 1.5-2.2 [facility] Mean corpuscular hemoglobin (MCH) determinationOrdered By: Susan Devi on 2025 MCH (RBC) [Entitic mass] 31.5 pg 27.0-32.0 [facility] Mean corpuscular hemoglobin concentration (MCHC) determinationOrdered By: Susan Devi on 2025 MCHC (RBC) [Mass/Vol] 33.5 g/dL 32-36 [facility] Mean platelet volume determi nationOrdered By: Susan Devi on 2025 Platelet mean volume (Bld) [Entitic vol] 11.0 fL 6.2-12.0 [facility] Monocyte percentageOrdered B y: Susan Devi on 2025 Monocytes/100 WBC (Bld) 9.5 % 0-10 [facility] Neutrophil percentageOrdered By: Susan Devi on 2025 Neutrophils/100 WBC (Bld) 63.5 % 47-70 [facility] Nucleated red blood cell per centageOrdered By: Susan Devi on 2025 Nucleated RBC/100 WBC (Bld) [Ratio] 0 % 0-5 [facility] Platelet countOrdered By: Piotr Devi on 2025 Platelets (Bld) [#/Vol] 157 10*3/uL 150-450 [facility] Potassium measurement (mass/ volume)Ordered By: Susan Devi on 2025 Potassium (Unsp spec) [Mass/Vol] 4.1 mmol/L 3.3-5.1 [facility] RBC Auto (Bld) [#/Vol]Ordere d By: Susan Devi on 2025 RBC (Bld) [#/Vol] 4.63 10*6/uL 4.6-6.2 [facility] Serum creatinine measurement (mass/volume)Ordered By: Susan Devi on 2025 Creatinine [Mass/Vol] 0.65 mg/dL Low 0.70-1.20 [facility] Serum glucose measurement (m ass/volume)Ordered By: Susan Devi on 2025 Glucose [Mass/Vol] 103 mg/dL High 70-99 [facility] Serum or plasma calcium cezar urement (mass/volume)Ordered By: Susan Devi on 2025 Calcium [Mass/Vol] 9.4 mg/dL 7.6-11.0 [facility] Serum or plasma urea nitroge n measurement (mass/volume)Ordered By: Susan Devi on 2025 Urea nitrogen [Mass/Vol] 12 mg/dL 4-19 [facility] Sodium levelOrdered By: Cindy Devi on 2025 Sodium [Moles/Vol] 139 mmol/L 133-145 [facility] TSH DL <= 0.005 mIU/L QnOrde red By: Susan Devi on 2025 TSH Qn 1.460 uIU/mL 0.300-4.200 [facility] Thyroid Stim Hormone (TSH)on 2025 TSH 1.460 uIU/mL Normal 0.300-4.200 [facility] Comment on above: Performed By: #### L 501.5200, L501.9520, L100.0100, L500.2500 #### [facility] [address] [place], [place], [address] White blood cell (WBC) count Ordered By: Susan Devi on 2025 WBC (Bld) [#/Vol] 5.3 10*3/uL 4.4-11.0 [facility] Cardiology Visit Reporton Cardiology Visit Report [facility] [address] [place] [address] OFFICE VISIT Date of Service: 02/04/25 MR#: [id number] Acct: [id number] Name: RICHARD HERNÁNDEZ Rep #: [id number] : 1950 Provider: Dr. Robi alexis MD Age/Sex: 74/M Location: [facility] Status: Signed HPI HPI History of Present Illness Details: Patient is a pleasant 74-year-old white male he comes in today for monitoring of his cardiovascular status. Patient carries a history of paroxysmal atrial fibrillation his last episode was about a week and a half ago and he took a extra metoprolol pill in the pocket therapy and this converted him to sinus rhythm. He is not always aware when he goes into atrial fibrillation he does have an iWatch that does not do an ECG but it does monitor him for atrial fibrillation. I helped him set it up on his phone today. The patient had a negative ischemic stress test January 2025 his echo showed no significant valvular heart disease and an EF of 65% with normal LV function December 2024. The patient's only had this 1 episode over the last several months and at this point in time I would recommend that we continue with his current medical therapy with Eliquis and metoprolol. He had a Holter monitor done in October 2024 we originally found the atrial fibrillation and he was totally asymptomatic at that time. He is now aware with the palpitations and sometimes progressive fatigue. ECG in the office today shows normal sinus rhythm with moderate voltage criteria for LVH and is borderline. Heart rate is 69 bpm. Patient denies any PND orthopnea denies any lower extremity edema. Intake Vital Signs 12/09/24 13:12 02/04/25 14:29 Height 5 ft 6 in 5 ft 6 in Weight: 189 lb BMI 30.4 BP 132/81 H Blood Pressure Location Lt brachial Position Sitting Respiration 18 Pulse 73 Pulse Source Monitor Pulse Oximetry (%) 93 Oxygen Delivery Method room air Intake Visit Reasons: 2 M FU Risk Control Manager Required: No Accompanied by: Self Is patient in pain?: No Allergies cinnamon Allergy (Verified 02/04/25 14:29) Swelling molasses Allergy (Verified 02/04/25 14:29) Swelling duloxetine Adverse Reaction (Verified 02/04/25 14:29) Tired, Light headed olmesartan medoxomil (From Benicar) Adverse Reaction (Verified 02/04/25 14:29) Unknown Medications ???Medication ???Instructions ???Recorded ???Confirmed ???Type fish oil-dha-epa 1,200 mg-144 2 ea PO DAILY 03/12/16 02/04/25 Hi story mg-216 mg capsule magnesium 250 mg tablet 250 mg PO DAILY 03/12/16 02/04/25 History metoprolol tartrate 50 mg tablet 50 mg PO QHS 03/12/16 02/04/25 His tory multivitamin with folic acid 400 1 tab PO DAILY 03/12/16 02/04/25 H istory mcg tablet potassium chloride 10 mEq 10 meq PO BID 03/12/16 02/04/25 Hi story tablet,extended release(part/cryst) psyllium husk 0.4 gram capsule 1 cap PO BID 03/12/16 02/04/25 His tory atorvastatin 40 mg tablet 40 mg PO QHS 08/29/18 02/04/25 His tory omeprazole 40 mg capsule,delayed 40 mg PO DAILY 05/31/19 02/04/25 H istory release ferrous sulfate 325 mg (65 mg 325 mg PO MOWEFR 09/29/23 02/04/25 History iron) tablet (Feosol) apixaban 5 mg tablet (Eliquis) 5 mg PO BID #180 tabs 12/15/24 Rx Ejection fraction %: 65 Have you [...] type: does not use ROS Const Const: Negative for fatigue or weakness ENT ENT: Negative for dizziness or balance problems Cardio Chest Pain: No Palpitations: Yes Edema: Left Muscle aches with walking: None Resp Respiratory: Negative for SOB with activity, SOB at rest or SOB orthopnea SOB lying down GI GI: Negative nausea, vomiting or heartburn Musc Musc: Negative for muscle weakness or balance pro (more content not included)... Normal [facility] Stress Test Echo w/o Contras ton 01-20-2025 Stress Test Echo w/o Contrast [facility] Cardiovascular Services [address] [place] [address] Stress Test Echo w/o Contrast MR#: [id number] Acct: [id number] Name: RICHARD HERNÁNDEZ Rep #: [id number] : 1950 74 From: Tim Hernandez MD Primary Care: Dr. Sudarshan Boyle, DO Status: REG CLI Ordering Dr: Robi Iverson MD Sex: M C Reason For Study Reason For Study: Paroxysmal Atrial Fibrillation Stress Results Protocol: Esequiel Protocol Maximum Predicted HR: 147 bpm Target HR: 125 bpm % Maximum Predicted HR: 89 % DurationHeart Rate Stage (mm:ss) (bpm) BP Comment Baseline 77 148/90No Chest Pain Esequiel Protocol Stage I 3:00 101 150/88No Chest Pain; Mild Dyspnea Esequiel Protocol Stage II 3:00 111 160/84No Chest Pain; Moderate Dyspnea Esequiel Protocol Stage III 2:00 131 172/90No Chest Pain; Moderate Dyspnea Recovery 81 142/90No Chest Pain; No Dyspnea Stress Duration: 8:00 mm:ss Maximum Stress HR: 131 bpm METS: 10 Baseline Echocardiogram Findings Stress Echo Wall motion Data Resting WM Intermediate WM Stress WM ECHO/Stress Test Echo w/o Contrast Interpretation Summary Stress echocardiogram. 74-year-old male with a history of atrial fibrillation. Resting EKG demonstrates normal sinus rhythm with a rate of 77 bpm no intervals are noted resting blood pressure is 148/90 mmHg. The patient exercised according to regular Esequiel protocol for total duration of 8 minutes. Patient completed 2 minutes into stage III of the Esequiel protocol the maximum heart rate attained was 131 bpm which was 89% of max impacted heart rate the maximum workload was 10.1 metabolic equivalents. At rest there were no ST or T wave changes noted suggest ischemia and at peak exercise upsloping ST changes were noted we did not meet the criteria for ischemia. No clinical angina was noted. The test was terminated due to dyspnea. The peak blood pressure was 174/88 which was a good blood pressure response to exercise rate-pressure product was 22,500. Stress echocardiogram. The resting echocardiogram demonstrated an ejection fraction of 60%. There appears to be basal inferior hypokinesis and basal inferior septal hypokinesis. With exercise there is thickening of all the schaffer noted except for the basal inferior wall. A previous basal inferior and inferior septal infarct cannot be completely excluded. No new wall motion abnormalities are noted. Conclusion: Exercise stress echocardiogram with no EKG criteria for ischemia at a high workload. 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 No ischemia is noted, at a high workload. Ordering Physician: Robi Iverson Referring Physician: Robi Iverson Performed By: Maricel Driver, RDCS, RVT 01/20/25 1637 Date Tim Hernandez MD CC: Dr. Sudarshan Boyle DO; Dr. Robi Iverson MD Date Dictated: 01/20/25 1109 Date Transcribed: 01/20/25 163 Customer Sales Consultant: Signed Normal [facility] Stress echocardiogram study reportOrdered By: Tim Hernandez on 01-20-2025 Stress cardiac echo study report [facility] Cardiovascular Services [address] [place] [address] Stress Test Echo w/o Contrast MR#: [id number] Acct: [id number] Name: RICHARD HERNÁNDEZ Rep #: [id number] : 1950 74 From: Tim Hernandez MD Primary Care: Dr. Sudarshan Tamar, DO Statu s: REG CLI Ordering Dr: Robi Iverson MD Sex: M C Reason For Study Reason For Study: Paroxysmal Atrial Fibrillation Stress Results Protocol: Esequiel Protocol Maximum Predicted HR: 147 bpm Target HR: 125 bpm % Maximum PredictedHR: 89 % DurationHeart Rate Stage (mm:ss) (bpm) BP Comment Baseline 77 148/90No Chest Pain Esequiel Protocol Stage I 3:00 101 150/88No Chest Pain; Mild Dyspnea Esequiel Protocol Stage II 3:00 111 160/84No Chest Pain; Moderate Dyspnea Esequiel Protocol Stage III 2:00 131 172/90No Chest Pain; Moderate Dyspnea Recovery 81 142/90No Chest Pain; No Dyspnea Stress Duration: 8:00 mm:ss Maximum Stress HR: 131 bpm METS:10 Baseline Echocardiogram Findings Stress Echo Wall motion Data Resting WM Intermediate WM Stress WM ECHO/Stress Test Echo w/o Contrast Interpretation Summary Stress echocardiogram. 74-year-old male with a history of atrial fibrillation. Resting EKG demonstrates normal sinus rhythm with a rate of 77 bpm no intervals are noted resting blood pressure is 148/90 mmHg. The patient exercised according to regular Esequiel protocol for totalduration of 8 minutes. Patient completed 2 minutes into stage III of the Esequiel protocol the maximum heart rate attained was 131 bpm which was 89% of max impacted heart rate the maximum workload was 10.1 metabolic equivalents. At rest there were no ST or T wave changes noted suggest ischemia and at peak exercise upsloping ST changes were noted we did not meet the criteria for ischemia. No clinical angina was noted. The test was terminated due to dyspnea. The peak blood pressure was 174/88 which was a good blood pressure response to exercise rate-pressure product was 22,500. Stress echocardiogram. The resting echocardiogram demonstrated an ejection fraction of 60%. There appears to be basal inferior hypokinesis and basal inferior septal hypokinesis. With exercise there is thickening of all the schaffer noted except for the basal inferior wall. A previous basal inferior and inferior septal infarct cannot be completely excluded. No new wall motion abnormalities are noted. Conclusion: Exercise stress echocardiogram with no EKG criteria for ischemia at a high workload. 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 No ischemia is noted, at a high workload. Ordering Physician: Robi Iverson Referring Physician: Robi Iverson Performed By: Maricel Driver, RDCS, RVT 01/20/25 1637 Date _ Tim Hernandez MD CC: Dr. Sudarshan Boyle, DO; Dr. Robi Iverson MD ~ Date Dictated: 01/20/25 1109 Date Transcribed: 01/20/251636 Customer Sales Consultant: Signed [facility] Work Phone: Echo Completeon 12-23-2024 Echo Complete [facility] Cardiovascular Services [address] [place] [address] Echo Complete 12/22/24 1903 MR#: [id number] Acct: [id number] Name: RICHARD HERNÁNDEZ Rep #: [id number] : 1950 74 From: Yanci Anderson MD Attending Dr: Dr. Robi Iverson MD Status: RE G CLI Ordering Dr: Robi Iverson MD Date: 12/23/24 Location: [facility] Sex: M C Admitted: Reason For Study Reason For Study: ASHD Procedure This was a 2D Doppler, Color Flow transthoracic echocardiogram. Exam performed in department. Left Ventricle Normal size and thickness. The LV ejection fraction is 65 %. Normal diastology for age. Right Ventricle Normal right ventricle. Atria The left atrium is mildly enlarged. Normal right atrium. Mitral Valve Mild mitral valve annular calcification. Mild mitral valve regurgitation. Tricuspid Valve Trivial tricuspid valve insufficiency. Normal pulmonary artery pressure. Aortic Valve Mildly calcified aortic valve. Aortic valve sclerosis without stenosis. Trivial to mild aortic valve regurgitation. Pulmonic Valve The pulmonic valve is not well visualized. Great Vessels Normal sized aortic root. Pericardium/Pleural No pericardial effusion. MMode/2D Measurements Calculations LVIDd: 5.3 cm IVSd: 1.1 cm LVOT diam: 2.1 cm LVIDs: 3.5 cm LVPWd: 1.1 cm LVOT area: 3.4 cm2 RVDd: 3.9 cm FS: 34.7 % Ao root diam: 3.4 cm LAV(MOD-bp): 70.4 ml LVAd ap4: 32.7 cm2 LAV(MOD-bp) Indexed: 36.4 ml/m2 LVLd ap4: 8.8 cm LAV(MOD-sp2): 74.3 ml EDV(MOD-sp4): 100.7 ml LAV(MOD-sp4): 66.9 ml EDV(sp4-el): 102.7 ml LVAs ap4: 15.3 cm2 LVLs ap4: 6.8 cm ESV(MOD-sp4): 31.2 ml ESV(sp4-el): 29.2 ml EF(MOD-sp4): 69.0 % EF(sp4-el): 71.6 % LVAd ap2: 27.8 cm2 SV(MOD-sp4): 69.5 ml SV(MOD-sp2): 51.6 ml LVLd ap2: 8.1 cm SI(MOD-sp4): 35.9 ml/m2 SI(MOD-sp2): 26.7 ml/m2 EDV(MOD-sp2): 78.6 ml EDV(sp2-el): 80.7 ml LVAs ap2: 14.4 cm2 LVLs ap2: 6.8 cm ESV(MOD-sp2): 27.0 ml ESV(sp2-el): 25.8 ml EF(MOD-sp2): 65.6 % SV(sp4-el): 73.5 ml LA dimension(2D): 4.2 cm LA A4 area: 21.5 cm2 RA A4 area: 14.2 cm2 TAPSE: 2.5 cm Time Measurements MV dec time: 0.28 sec Doppler Measurements Calculations MV E max ray: 61.6 cm/sec Lat Peak E' Ray: 10.8 cm/sec Med Peak E' Ray: 7.1 cm/sec MV A max ray: 73.9 cm/sec E/E' lat: 5.7 E/E' med: 8.7 MV E/A: 0.83 MV V2 max: 88.0 cm/sec MV P1/2t max ray: 63.0 cm/sec Ao V2 max: 195.5 cm/sec MV max P.1 mmHg MV P1/2t: 92.4 msec Ao max P.3 mmHg MV V2 mean: 43.2 cm/sec Ao V2 mean: 127.5 cm/sec MV mean P.90 mmHg MV dec slope: 199.6 cm/sec2 Ao mean P.5 mmHg MV V2 VTI: 26.1 cm MVA(P1/2t): 2.4 cm2 Ao V2 VTI: 37.7 cm AV (velocity ratio): 0.61 MVA(VTI): 3.0 cm2 SAYRA(I,D): 2.1 cm2 SAYRA(V,D): 1.9 cm2 AI max ray: 303.7 cm/sec LV V1 max: 109.9 cm/sec SV(LVOT): 79.0 ml AI max P.9 mmHg LV V1 max P.8 mmHg AI dec slope: 116.5 cm/sec2 LV V1 mean P.5 mmHg AI P1/2t: 763.3 msec LV V1 mean: 74.4 cm/sec LV V1 VTI: 23.2 cm PA V2 max: 121.9 cm/sec PI dec slope: 129.4 cm/sec2 TR max ray: 267.6 cm/sec PA V2 mean: 84.3 cm/sec TR max P.6 mmHg ECHO/Echo Complete Interpretation Summary The LV ejection fraction is 65 %. The left atrium is mildly enlarged. Mild mitral valve annular calcification. Mild mitral valve regurgitation. Mildly calcified aortic valve. Aortic valve sclerosis without stenosis. Trivial to mild aortic valve regurgitation. Ordering Physician: Robi Iverson Referring Physician: Sudarshan Boyle Performed By: Maricel Driver, DAYSICS, RVT 12/23/24 1126 Date Yanci Anderson MD CC: Dr. Sudarshan Boyle, DO; Dr. Robi Iverson MD Date Dictated: 12/22/241902 Date Transcribed: 12/23/24 112 Customer Sales Consultant: Signed Normal [facility] Echocardiogram study reportO rdered By: Yanci Anderson on 12-23-2024 Study report [facility] Cardiovascular Services [address] [place] [address] Echo Complete 12/22/241902 MR#: [id number] Acct: [id number] Name: RICHARD HERNÁNDEZ Rep #:[id number] : 1950 74 From: Yanci Anderson MD Attending Dr: Dr. Robi Iverson MD Status: REG CLI Ordering Dr: Robi Iverson MD Date: 12/23/24 Location: [facility] Sex: M C Admitted: Reason For Study Reason For Study: ASHD Procedure This was a 2D Doppler, Color Flow transthoracic echocardiogram. Exam performed in department. Left Ventricle Normal size and thickness. The LV ejection fraction is 65 %. Normal diastology for age. Right Ventricle Normal right ventricle. Atria The left atrium is mildly enlarged. Normal right atrium. Mitral Valve Mild mitral valve annular calcification. Mild mitral valve regurgitation. Tricuspid Valve Trivial tricuspid valve insufficiency. Normal pulmonary artery pressure. Aortic Valve Mildly calcified aortic valve. Aortic valve sclerosis without stenosis. Trivial to mild aortic valve regurgitation. Pulmonic Valve The pulmonic valve is not well visualized. Great Vessels Normal sized aortic root. Pericardium/Pleural No pericardial effusion. MMode/2D Measurements & Calculations LVIDd: 5.3 cm IVSd: 1.1 cm LVOT diam: 2.1 cm LVIDs: 3.5 cm LVPWd: 1.1 cm LVOT area: 3.4 cm2 RVDd: 3.9 cm FS: 34.7 % Ao root diam: 3.4 cm LAV(MOD-bp): 70.4 ml LVAd ap4: 32.7 cm2 LAV(MOD-bp) Indexed: 36.4 ml/m2 LVLd ap4: 8.8 cm LAV(MOD-sp2): 74.3 ml EDV(MOD-sp4): 100.7 ml LAV(MOD-sp4): 66.9 ml EDV(sp4-el): 102.7 ml LVAs ap4: 15.3 cm2 LVLs ap4: 6.8 cm ESV(MOD-sp4): 31.2 ml ESV(sp4-el): 29.2 ml EF(MOD-sp4): 69.0 % EF(sp4-el): 71.6 % LVAd ap2: 27.8 cm2 SV(MOD-sp4): 69.5 ml SV(MOD-sp2): 51.6 ml LVLd ap2: 8.1 cm SI(MOD-sp4): 35.9 ml/m2 SI(MOD-sp2): 26.7 ml/m2 EDV(MOD-sp2): 78.6 ml EDV(sp2-el): 80.7 ml LVAs ap2: 14.4 cm2 LVLs ap2: 6.8 cm ESV(MOD-sp2): 27.0 ml ESV(sp2-el): 25.8 ml EF(MOD-sp2): 65.6 % SV(sp4-el): 73.5 ml LA dimension(2D): 4.2 cm LA A4 area: 21.5 cm2 RA A4 area: 14.2 cm2 TAPSE: 2.5 cm Time Measurements MV dec time: 0.28 sec Doppler Measurements & Calculations MV E max ray: 61.6 cm/sec Lat Peak E' Ray: 10.8 cm/sec Med Peak E' Ray: 7.1 cm/sec MV A max ray: 73.9 cm/sec E/E' lat: 5.7 E/E' med: 8.7 MV E/A: 0.83 MV V2 max: 88.0 cm/sec MV P1/2t max ray: 63.0 cm/sec Ao V2 max: 195.5 cm/sec MV max P.1 mmHg MV P1/2t: 92.4 msec Ao max P.3 mmHg MV V2 mean: 43.2 cm/sec Ao V2 mean: 127.5 cm/sec MV mean P.90 mmHg MV dec slope: 199.6 cm/sec2 Ao mean P.5 mmHg MV V2 VTI: 26.1 cm MVA(P1/2t): 2.4 cm2 Ao V2 VTI: 37.7 cm AV (velocity ratio): 0.61 MVA(VTI): 3.0 cm2 SAYRA(I,D): 2.1 cm2 SAYRA(V,D): 1.9 cm2 AI max ray: 303.7 cm/sec LV V1 max: 109.9 cm/sec SV(LVOT): 79.0 ml AI max P.9 mmHg LV V1 max P.8 mmHg AI dec slope: 116.5 cm/sec2 LV V1 mean P.5 mmHg AI P1/2t: 763.3 msec LV V1 mean: 74.4 cm/sec LV V1 VTI: 23.2 cm PA V2 max: 121.9 cm/sec PI dec slope: 129.4 cm/sec2 TR max ray: 267.6 cm/sec PA V2 mean: 84.3 cm/sec TR max P.6 mmHg ECHO/Echo Complete Interpretation Summary The LV ejection fraction is 65 %. The left atrium is mildly enlarged. Mild mitral valve annular calcification. Mild mitral valve regurgitation. Mildly calcified aortic valve. Aortic valve sclerosis without stenosis. Trivial to mild aortic valve regurgitation. Ordering Physician: Robi Iverson Referring Physician: Sudarshan Boyle Performed By: Maricel Driver RDCS, RVT 12/23/246 Date _ Yanci Anderson MD CC: Dr. Sudarshan Boyle DO; Dr. Robi Iverson MD ~ Date Dictated: 12/22/241902 Date Transcribed: 12/23/24 112 Customer Sales Consultant: Signed [facility] Work Phone: Cardiology Visit Reporton Cardiology Visit Report [facility] [address] [place] [address] OFFICE VISIT Date of Service: 12/09/24 MR#: [id number] Acct: [id number] Name: RICHARD HERNÁNDEZ Rep #: [id number] : 1950 Provider: Dr. Robi alexis MD Age/Sex: 74/M Location: [facility] Status: Signed HPI HPI History of Present [...] room air Intake Visit Reasons: Atrial fibrillation Risk Control Manager Required: No Accompanied by: Self Is patient in pain?: No Allergies cinnamon Allergy (Verified 12/09/24 13:15) Swelling molasses Allergy (Verified 12/09/24 13:15) Swelling duloxetine Adverse Reaction (Verified 12/09/24 13:15) Tired, Light headed olmesartan medoxomil (From Benicar) Adverse Reaction (Verified 12/09/24 13:15) Unknown Medications [...] Const: Neg (more content not included)... Normal [facility] Urgent Care Visit Reporton 0 12-07-2024 Urgent Care Visit Report [facility] [address], [address] [place] [address] OFFICE VISIT Date of Service: 12/07/24 MR#: [id number] Acct: [id number] Name: RICHARD HERNÁNDEZ Rep #: [id number] : 1950 Provider: DEJAN Cruz Age/Sex: 74/M Location: [facility] Status: Signed Intake Vital Signs 09/17/24 09:26 [...] wasn't helping it. Patient states it itches. [facility] Medical History Wears glasses Low iron High [...] hiking. Patient states he has used multiple [id number] topical applications without relief of symptoms. No [...] related structures (more content not included)... Normal [facility] Urgent Care Visit Reporton 0 09-17-2024 Urgent Care Visit Report [facility] [address], [address] [place] [address] OFFICE VISIT Date of Service: 09/17/24 MR#: [id number] Acct: [id number] Name: RICHARD HERNÁNDEZ Rep #: [id number] : 1950 Provider: DEJAN Osullivan Age/Sex: 74/M Location: [facility] Status: Signed Intake Vital Signs 06/24/24 12:47 [...] PAIN/REDNESS/SWELLIN G Chief Complaint: right foot pain Risk Control Manager Required: No Is patient in pain?: Yes Allergies cinnamon Allergy (Verified 09/17/24 09:26) Swelling molasses Allergy (Verified 09/17/24 09:26) Swelling duloxetine Adverse Reaction (Verified 09/17/24 09:26) Tired, Light headed olmesartan medoxomil (From [facility]) Adverse Reaction (Verified 09/17/24 09:26) Unknown Medications [...] cellulitis, concern for same. denies drainage, fever. [facility] Medical History Wears glasses Low iron High [...] grossly normal (more content not included)... Normal [facility] L/S Spine Min 4 Viewson 06-09 L/S Spine Min 4 Views [facility] [address] [place] [address] L/S Spine Min 4 Views MR#: [id number] Acct: [id number] Name: RICHARD HERNÁNDEZ Rep #: [id number] : 1950 M 74 From: Zaid Panchal DO PCP: Dr. Sudarshan Boyle DO Status: DEP AMB Study: L/S Spine Min 4 Views Date of Exam: 06/24/24 Exam# [id number] Ordering Dr: Violeta León [id number] STUDY: X-RAY - LUMBAR SPINE REASON FOR [...] 16:23 EST Reading Location ID and State: [place] / [place] Tel [phone], Service support , CC: DEJAN Reyes; Dr. Sudarshan Boyle DO Customer Sales Consultant: Signed Normal [facility] Orthopedic Visit Reporton Orthopedic Visit Report [facility] [address] [place] [address] OFFICE VISIT Date of Service: 06/24/24 MR#: [id number] Acct: [id number] Name: RICHARD HERNÁNDEZ Rep #: [id number] : 1950 Provider: Dr. Reese Guillory MD Age/Sex: 74/M Location: [facility] Status: Signed Intake Vital Signs 04/13/24 14:08 05/31/24 07:10 06/24/24 12:47 Height 5 ft 6 in 5 ft 6 in 5 ft 6 in Weight: 192 lb 6 oz BMI 31.0 Intake Visit Reasons: LUMBAR SPINE Accompanied by: Allergies cinnamon Allergy (Verified 06/24/24 12:50) Swelling molasses Allergy (Verified 06/24/24 12:50) Swelling duloxetine Adverse Reaction (Verified 06/24/24 12:50) Tired, Light headed olmesartan medoxomil (From [facility]) Adverse Reaction (Verified 06/24/24 12:50) Unknown Medications [...] you fallen in the past year?: No [facility] Medical History Wears glasses Low iron High [...] by me, Dr. Reese Guillory MD 06/24/24 1245. Part of today???s visit was documented by Brenda DIXON, acting as scribe. RICHARD HERNÁNDEZ is a 74 year old M here today NEW patient for low back pain. Patient was referred by Dr. Colin. Patient did have an MRI of his lumbar spine that was done on 10/02/[address] [facility]. Patient states that he had surgery [...] Non-diabetic. No (more content not included)... Normal [facility] Colonoscopy Reporton 024 Colonoscopy Report [facility] Medical Records Department [address] [place] [address] Colonoscopy Report MR#: [id number] Acct: [id number] Name: RICHARD HERNÁNDEZ Rep #: [id number] : 1950 74 From: James Crane DO PCP: Dr. Sudarshan Boyle DO Status:[facility] Patient Name: Richard Hernández Procedure Date: 05/31/2024 [...] present medications. Procedure Code(s): --- Professional --- 70344, Colonoscopy, flexible; with biopsy, single or multiple CPT copyright 2021 [employer]. All rights reserved. The codes documented in this report are preliminary and upon coder operator review may be revised to meet current compliance requirements. James Crane DO 05/31/2024 8:15:49 AM This report has been signed electronically. Number of Addenda: 0 Note Initiated On: 05/31/2024 7:47 AM 05/31/24814 Date James Crane DO Cosigner Signature: Date (if indicated) CC: Dr. Sudarshan Boyle DO; James Crane DO Date Dictated: 05/31/24746 Date Transcribed: Customer Sales Consultant: ISREAL Signed [facility] MR/POSTOP.[facility] 05-31-2024 MR/POSTOP.[facility] Medical Records Department [address] [place] [address] Anesthesia Postop Eval I 05/31/24817 MR#: [id number] Acct: [id number] Name: RICHARD HERNÁNDEZ Rep #: [id number] : 1950 74 From: Saurav Davis PCP: Dr. Sudarshan Boyle DO Status:REG SDC Y Race: C Location: [place] [address] Anesthesia: Postop Eval I Current Vital Signs [...] Saurav Arreaga Signature: Date CC: Signed Normal [facility] MR/[id number] 05-31-2024 MR/POSTOPAN2 [facility] Medical Records Department [address] [place] [address] Anesthesia Postop Eval II 05/31/24825 MR#: [id number] Acct: [id number] Name: RICHARD HERNÁNDEZ Rep #: [id number] : 1950 74 From: Adam Chu MD PCP: Dr. Sudarshan Boyle, DO Status:REG SDC Y Race: C Location: [place] [address] Anesthesia Postop Eval I Sum Postop Eval [...] Adam Arreaga Signature: Date CC: Signed Normal [facility] Surgery Specimen Level Nilesh 05-31-2024 Surgery Specimen Level IV Patient Age/Sex Location Account Attending Physician RICHARD HERNÁNDEZ 74/M EN [id number] James Crane DO Specimen: [id number] Received: 05/31/24 Status: ALYCIA Arriaza Num: [id number] Spec Type: EGD BIOPSY Braden Dr: James Crane, DO HEADER OPERATION: Colonoscopy with biopsy PRE-OP DIAGNOSIS: [...] specimen is totally submitted in one cassette. /MS:augie 05/31/24 TC:1 CPT:91789 Patient Age/Sex Location Account Attending Physician RICHARD HERNÁNDEZ 74/M EN [id number] James Crane DO Signed (signature on file) Dr. Odin Wu MD 06/01/24 1219 Normal [facility] Comment on above: Performed By: #### P SUIV #### [facility] Laboratory [facility] [place], [place], [address] Basophil percentageOrdered B y: Darryl Miranda on 10-03-2023 Bilirubin [Mass/Vol] 0.80 mg/dL 0.20-1.00 [facility] Comment on above: For patients on eltr ombopag therapy, use of Dimension [place] TBIL is not recommended. Chloride [Moles/Vol] 107 mmol/L 98-107 [facility] Glucose [Mass/Vol] 106 mg/dL 74-106 [facility] Comment on above: Fasting Glucose resu lt from 100 to 125 mg/dL suggests IMPAIRED HOMEOSTASIS per A.D.A. criteria. Hemoglobin (Bld) [Mass/Vol] 15.7 g/dL 13.0-16.5 [facility] Potassium [Moles/Vol] 3.6 mmol/L 3.5-5.1 [facility] Protein [Mass/Vol] 6.8 g/dL 6.4-8.2 [facility] Sodium [Moles/Vol] 140 mmol/L 136-145 [facility] WBC (Bld) [#/Vol] 5.5 10*3/uL 4.4-11.0 [facility] Determination of erythrocyte mean corpuscular volume (MCV)Ordered By: Darryl Miranda on 10-03-2023 MCV (RBC) [Entitic vol] 92.0 fL 80-94 [facility] Erythrocyte distribution wid th ratioOrdered By: Darryl Miranda on 10-03-2023 Erythrocyte distribution width (RBC) [Ratio] 12.9 % 11.6-14.6 [facility] Erythrocyte distribution wid th standard deviationOrdered By: Darryl Miranda on 10-03-2023 Erythrocyte distribution width (RBC) [Entitic vol] 43.4 fL 35.1-43.9 [facility] Hematocrit Auto (Bld) [Volum e fraction]Ordered By: Darryl Miranda on 10-03-2023 Hematocrit (Bld) [Volume fraction] 45.0 % 40-54 [facility] Laboratory - Chemistry and C hemistry - challengeOrdered By: Darrylkaris Miranda on 10-03-2023 Albumin/Globulin [Mass ratio] 0.9 {ratio} 0.9-2.4 [facility] ALP [Catalytic activity/Vol] 81 U/L 45-117 [facility] ALT [Catalytic activity/Vol] 22 U/L 16-61 [facility] CO2 [Moles/Vol] 28.0 mmol/L 21.0-32.0 [facility] Cobalamin (Vitamin B12) [Mass/Vol] 839 pg/mL 211-911 [facility] Globulin (S) [Mass/Vol] 3.5 g/dL 2.2-4.2 [facility] Urea nitrogen/Creatinine [Mass ratio] 14.0 mg/mg 10-20 [facility] Laboratory - Hematology and Cell countsOrdered By: Darryl Miranda on 10-03-2023 MCH (RBC) [Entitic mass] 32.1 pg 27.0-32.0 [facility] MCHC (RBC) [Mass/Vol] 34.9 g/dL 32-36 [facility] Platelet mean volume (Bld) [Entitic vol] 10.5 fL 6.2-12.0 [facility] Platelets (Bld) [#/Vol] 171 10*3/uL 150-450 [facility] No Panel InformationOrdered By: Darryl Miranda on 10-03-2023 Estimated GFR (MDRD) Amer 139 mL/min >60 [facility] Comment on above: GFR Calc Estimated GFR (MDRD) Non-Af Amer 115 mL/min >60 [facility] Comment on above: Non- GFR Calc Folate 18.90 ng/mL 3.1-55.4 [facility] RBC Auto (Bld) [#/Vol]Ordere d By: Darryl Miranda on 10-03-2023 RBC (Bld) [#/Vol] 4.89 10*6/uL 4.6-6.2 [facility] Serum or plasma calcium cezar urement (mass/volume)Ordered By: Darryl Miranda on 10-03-2023 Calcium [Mass/Vol] 8.5 mg/dL 8.5-10.1 [facility] Serum or plasma creatinine m easurement (mass/volume)Ordered By: Darryl Miranda on 10-03-2023 Creatinine [Mass/Vol] 0.72 mg/dL 0.70-1.30 [facility] Comment on above: The validity of the calculated GFR & GFRAA in patients over 70 years has not been determined. Clinical correlation is essential. Serum or plasma thyroid stim ulating hormone (TSH) measurement (units/volume)Ordered By: Darryl Miranda on 10-03-2023 TSH Qn 1.91 uIU/mL 0.358-3.74 [facility] Serum or plasma urea nitroge n measurement (mass/volume)Ordered By: Darryl Miranda on 10-03-2023 Urea nitrogen [Mass/Vol] 10 mg/dL 7-18 [facility] Thin prep Papanicolaou smear with manual screeningOrdered By: Darryl Miranda on 10-03-2023 Thin prep Papanicolaou smear with manual screening 3.3 g/dL 3.2-5.0 [facility] Thin prep Papanicolaou smear with manual screening 24 U/L 15-37 [facility] Thin prep Papanicolaou smear with manual screening 5 5-15 [facility] Whole blood hemoglobin A1c/t otal hemoglobin ratio (mass fraction)Ordered By: Darryl Miranda on 10-03-2023 HbA1c (Bld) [Mass fraction] 5.3 % 3.8-5.6 [facility] Comment on above: Normal < 5.7 % Predi abetic 5.7 - 6.4 % Diabetic >or= 6.5 % Please note range changes. Absolute lymphocyte countOrd ered By: Sudarshan Boyle on 04-09-2023 Lymphocytes Auto (Unsp spec) [#/Vol] 0.99 10*3/uL 0.83-4.51 [facility] Basophil percentageOrdered B y: Sudarshan Boyle on 04-09-2023 Basophils/100 WBC (Bld) 0.8 % 0-1 [facility] Bilirubin [Mass/Vol] 0.70 mg/dL 0.20-1.00 [facility] Comment on above: For patients on eltr ombopag therapy, use of Dimension [place] TBIL is not recommended. Chloride [Moles/Vol] 105 mmol/L 98-107 [facility] Cholesterol [Mass/Vol] 162 mg/dL <200 [facility] Comment on above: <200 mg/dL Desirable 200-240 mg/dL Borderline >240 mg/dL High Risk Eosinophils/100 WBC (Bld) 3.9 % 0-5 [facility] Glucose [Mass/Vol] 88 mg/dL 74-106 [facility] Neutrophils (Bld) [#/Vol] 3.2 10*3/uL 2.0-7.7 [facility] Neutrophils/100 WBC (Bld) 63.5 % 47-70 [facility] Potassium [Moles/Vol] 3.9 mmol/L 3.5-5.1 [facility] Protein [Mass/Vol] 6.8 g/dL 6.4-8.2 [facility] Sodium [Moles/Vol] 141 mmol/L 136-145 [facility] Triglyceride [Mass/Vol] 169 mg/dL <199 [facility] Comment on above: The drugs N-Acetylcy steine and Metamizole may falsely depress this assay.Serum Triglycerides Reference Interval Normal <150 mg/dL Borderline high 150 - 199 mg/dL High 200 - 499 mg/dL Very High > or = 500 mg/dL WBC (Bld) [#/Vol] 5.1 10*3/uL 4.4-11.0 [facility] Blood erythrocytes count (nu mber/volume)Ordered By: Sudarshan Boyle on 04-09-2023 RBC (Bld) [#/Vol] 4.63 10*6/uL 4.6-6.2 [facility] Blood hemoglobin measurement (mass/volume)Ordered By: Sudarshan Boyle on 04-09-2023 Hemoglobin (Bld) [Mass/Vol] 14.3 g/dL 13.0-16.5 [facility] Blood lymphocytes/100 leukoc ytesOrdered By: Sudarshan Boyle on 04-09-2023 Lymphocytes/100 WBC (Bld) 19.4 % 19-41 [facility] Blood monocytes/100 leukocyt esOrdered By: Sudarshan Boyle on 04-09-2023 Monocytes/100 WBC (Bld) 11.6 % 0-10 [facility] Blood platelet mean volumeOr dered By: Sudarshan Boyle on 04-09-2023 Platelet mean volume (Bld) [Entitic vol] 11.4 fL 6.2-12.0 [facility] Determination of erythrocyte mean corpuscular volume (MCV)Ordered By: Sudarshan Boyle on 04-09-2023 MCV (RBC) [Entitic vol] 95.2 fL 80-94 [facility] Hematocrit Auto (Bld) [Volum e fraction]Ordered By: Sudarshan Boyle on 04-09-2023 Hematocrit (Bld) [Volume fraction] 44.1 % 40-54 [facility] Laboratory - Chemistry and C hemistry - challengeOrdered By: Sudarshan Boyle on 04-09-2023 ALP [Catalytic activity/Vol] 80 U/L 45-117 [facility] ALT [Catalytic activity/Vol] 26 U/L 16-61 [facility] CO2 [Moles/Vol] 32.0 mmol/L 21.0-32.0 [facility] Cobalamin (Vitamin B12) [Mass/Vol] 759 pg/mL 211-911 [facility] Globulin (S) [Mass/Vol] 3.4 g/dL 2.2-4.2 [facility] Urea nitrogen/Creatinine [Mass ratio] 18.3 mg/mg 10-20 [facility] Laboratory - Hematology and Cell countsOrdered By: Sudarshan Boyle on 04-09-2023 Erythrocyte distribution width (RBC) [Entitic vol] 46.2 fL 35.1-43.9 [facility] Erythrocyte distribution width (RBC) [Ratio] 13.2 % 11.6-14.6 [facility] Immature granulocytes/100 WBC (Bld) 0.800 % 0.0-0.9 [facility] Comment on above: IG% - Immature Granu locytes (promyelocytes, myelocytes and metamyelocytes) > 1% indicates that a LEFT SHIFT is Present. MCH (RBC) [Entitic mass] 30.9 pg 27.0-32.0 [facility] Nucleated RBC/100 WBC (Bld) [Ratio] 0 % 0-5 [facility] MCHC Auto (RBC) [Mass/Vol]Or dered By: Sudarshan Boyle on 04-09-2023 MCHC (RBC) [Mass/Vol] 32.4 g/dL 32-36 [facility] No Panel InformationOrdered By: Sudarshan Boyle on 04-09-2023 Estimated GFR (MDRD) Amer 140 mL/min >60 [facility] Comment on above: GFR Calc Estimated GFR (MDRD) Non-Af Amer 116 mL/min >60 [facility] Comment on above: Non- GFR Calc Platelets bldOrdered By: Shadia Boyle on 04-09-2023 Platelets (Bld) [#/Vol] 179 10*3/uL 150-450 [facility] Serum or plasma albumin cezar urement (mass/volume)Ordered By: Sudarshan Boyle on 04-09-2023 Albumin [Mass/Vol] 3.4 g/dL 3.2-5.0 [facility] Serum or plasma albumin/glob ulin mass ratioOrdered By: Sudarshan Boyle on 04-09-2023 Albumin/Globulin [Mass ratio] 1.0 {ratio} 0.9-2.4 [facility] Serum or plasma calcium cezar urement (mass/volume)Ordered By: Sudarshan Boyle on 04-09-2023 Calcium [Mass/Vol] 9.0 mg/dL 8.5-10.1 [facility] Serum or plasma cholesterol in HDL measurement (mass/volume)Ordered By: Sudarshan Boyle on 04-09-2023 Cholesterol in HDL [Mass/Vol] 48 mg/dL >40 [facility] Comment on above: The drugs N-Acetylcy steine and Metamizole may falsely depress this assay. Reference Range HDL <40 mg/dL Low HDL Cholesterol HDL >or= 60 mg/dL High HDL Cholesterol Serum or plasma cholesterol in VLDL measurement (mass/volume)Ordered By: Sudarshan Boyle on 04-09-2023 Cholesterol in VLDL [Mass/Vol] 34 mg/dL 5-40 [facility] Serum or plasma creatinine m easurement (mass/volume)Ordered By: Sudarshan Boyle on 04-09-2023 Creatinine [Mass/Vol] 0.71 mg/dL 0.70-1.30 [facility] Comment on above: The validity of the calculated GFR & GFRAA in patients over 70 years has not been determined. Clinical correlation is essential. Serum or plasma low density lipoprotein (LDL) cholesterol measurement (mass/volume)Ordered By: Sudarshan Boyle on 04-09-2023 Cholesterol in LDL [Mass/Vol] 80 mg/dL 0-130 [facility] Serum or plasma urea nitroge n measurement (mass/volume)Ordered By: Sudarshan Boyle on 04-09-2023 Urea nitrogen [Mass/Vol] 13 mg/dL 7-18 [facility] Thin prep Papanicolaou smear with manual screeningOrdered By: Sudarshan Boyle on 04-09-2023 Thin prep Papanicolaou smear with manual screening 19 U/L 15-37 [facility] Thin prep Papanicolaou smear with manual screening 4 5-15 [facility] Absolute lymphocyte countOrd ered By: Dr. Boyle on 08-13-2022 Lymphocytes Auto (Unsp spec) [#/Vol] 0.99 10*3/uL 0.83-4.51 [facility] Basophil percentageOrdered B y: Dr. Boyle on 08-13-2022 Basophils/100 WBC (Bld) 0.6 % 0-1 [facility] Bilirubin [Mass/Vol] 0.90 mg/dL 0.20-1.00 [facility] Comment on above: For patients on eltr ombopag therapy, use of Dimension [place] TBIL is not recommended. Chloride [Moles/Vol] 103 mmol/L 98-107 [facility] Cholesterol [Mass/Vol] 142 mg/dL <200 [facility] Comment on above: <200 mg/dL Desirable 200-240 mg/dL Borderline >240 mg/dL High Risk Eosinophils/100 WBC (Bld) 4.0 % 0-5 [facility] Glucose [Mass/Vol] 101 mg/dL 74-106 [facility] Comment on above: Fasting Glucose resu lt from 100 to 125 mg/dL suggests IMPAIRED HOMEOSTASIS per A.D.A. criteria. Neutrophils (Bld) [#/Vol] 2.8 10*3/uL 2.0-7.7 [facility] Neutrophils/100 WBC (Bld) 60.2 % 47-70 [facility] Potassium [Moles/Vol] 4.4 mmol/L 3.5-5.1 [facility] Protein [Mass/Vol] 7.0 g/dL 6.4-8.2 [facility] Sodium [Moles/Vol] 140 mmol/L 136-145 [facility] Triglyceride [Mass/Vol] 81 mg/dL <199 [facility] Comment on above: The drugs N-Acetylcy steine and Metamizole may falsely depress this assay.Serum Triglycerides Reference Interval Normal <150 mg/dL Borderline high 150 - 199 mg/dL High 200 - 499 mg/dL Very High > or = 500 mg/dL WBC (Bld) [#/Vol] 4.7 10*3/uL 4.4-11.0 [facility] Blood erythrocytes count (nu mber/volume)Ordered By: Dr. Boyle on 08-13-2022 RBC (Bld) [#/Vol] 4.39 10*6/uL 4.6-6.2 [facility] Blood hemoglobin measurement (mass/volume)Ordered By: Dr. Boyle on 08-13-2022 Hemoglobin (Bld) [Mass/Vol] 14.0 g/dL 13.0-16.5 [facility] Blood lymphocytes/100 leukoc ytesOrdered By: Dr. Boyle on 08-13-2022 Lymphocytes/100 WBC (Bld) 21.0 % 19-41 [facility] Blood monocytes/100 leukocyt esOrdered By: Dr. Boyle on 08-13-2022 Monocytes/100 WBC (Bld) 13.4 % 0-10 [facility] Blood platelet mean volumeOr dered By: Dr. Boyle on 08-13-2022 Platelet mean volume (Bld) [Entitic vol] 11.2 fL 6.2-12.0 [facility] Determination of erythrocyte mean corpuscular volume (MCV)Ordered By: Dr. Boyle on 08-13-2022 MCV (RBC) [Entitic vol] 96.6 fL 80-94 [facility] Hematocrit Auto (Bld) [Volum e fraction]Ordered By: Dr. Boyle on 08-13-2022 Hematocrit (Bld) [Volume fraction] 42.4 % 40-54 [facility] Laboratory - Chemistry and C hemistry - challengeOrdered By: Dr. Boyle on 08-13-2022 ALP [Catalytic activity/Vol] 82 U/L 45-117 [facility] ALT [Catalytic activity/Vol] 25 U/L 16-61 [facility] CO2 [Moles/Vol] 30.0 mmol/L 21.0-32.0 [facility] Globulin (S) [Mass/Vol] 3.4 g/dL 2.2-4.2 [facility] Urea nitrogen/Creatinine [Mass ratio] 15.6 mg/mg 10-20 [facility] Laboratory - Hematology and Cell countsOrdered By: Dr. Boyle on 08-13-2022 Erythrocyte distribution width (RBC) [Entitic vol] 45.3 fL 35.1-43.9 [facility] Erythrocyte distribution width (RBC) [Ratio] 12.7 % 11.6-14.6 [facility] Immature granulocytes/100 WBC (Bld) 0.800 % 0.0-0.9 [facility] Comment on above: IG% - Immature Granu locytes (promyelocytes, myelocytes and metamyelocytes) > 1% indicates that a LEFT SHIFT is Present. MCH (RBC) [Entitic mass] 31.9 pg 27.0-32.0 [facility] Nucleated RBC/100 WBC (Bld) [Ratio] 0 % 0-5 [facility] MCHC Auto (RBC) [Mass/Vol]Or dered By: Dr. Boyle on 08-13-2022 MCHC (RBC) [Mass/Vol] 33.0 g/dL 32-36 [facility] No Panel InformationOrdered By: Dr. Boyle on 08-13-2022 Estimated GFR (MDRD) Amer 128 mL/min >60 [facility] Comment on above: GFR Calc Estimated GFR (MDRD) Non-Af Amer 106 mL/min >60 [facility] Comment on above: Non- GFR Calc Prostate Specific Antigen Screen 0.96 ng/mL 0.00-4.00 [facility] Comment on above: This test was perfor med using the TPSA assay method for theChangeYourFlight chemistry system. Values obtained with differentassay methods cannot be used interchangably.When changing PSA assays in the course of monitoring apatient, additional sequential testing should be carriedout to confirm baseline values. Thyroid Stimulating Hormone (TSH) 1.46 uIU/mL 0.358-3.74 [facility] Platelets bldOrdered By: Dr. Boyle on 08-13-2022 Platelets (Bld) [#/Vol] 180 10*3/uL 150-450 [facility] Serum or plasma albumin cezar urement (mass/volume)Ordered By: Dr. Boyle on 08-13-2022 Albumin [Mass/Vol] 3.6 g/dL 3.2-5.0 [facility] Serum or plasma albumin/glob ulin mass ratioOrdered By: Dr. Boyle on 08-13-2022 Albumin/Globulin [Mass ratio] 1.1 {ratio} 0.9-2.4 [facility] Serum or plasma calcium cezar urement (mass/volume)Ordered By: Dr. Boyle on 08-13-2022 Calcium [Mass/Vol] 9.3 mg/dL 8.5-10.1 [facility] Serum or plasma cholesterol in HDL measurement (mass/volume)Ordered By: Dr. Boyle on 08-13-2022 Cholesterol in HDL [Mass/Vol] 49 mg/dL >40 [facility] Comment on above: The drugs N-Acetylcy steine and Metamizole may falsely depress this assay. Reference Range HDL <40 mg/dL Low HDL Cholesterol HDL >or= 60 mg/dL High HDL Cholesterol Serum or plasma cholesterol in VLDL measurement (mass/volume)Ordered By: Dr. Boyle on 08-13-2022 Cholesterol in VLDL [Mass/Vol] 16 mg/dL 5-40 [facility] Serum or plasma creatinine m easurement (mass/volume)Ordered By: Dr. Boyle on 08-13-2022 Creatinine [Mass/Vol] 0.77 mg/dL 0.70-1.30 [facility] Comment on above: The validity of the calculated GFR & GFRAA in patients over 70 years has not been determined. Clinical correlation is essential. Serum or plasma low density lipoprotein (LDL) cholesterol measurement (mass/volume)Ordered By: Dr. Boyle on 08-13-2022 Cholesterol in LDL [Mass/Vol] 77 mg/dL 0-130 [facility] Serum or plasma urea nitroge n measurement (mass/volume)Ordered By: Dr. Boyle on 08-13-2022 Urea nitrogen [Mass/Vol] 12 mg/dL 7-18 [facility] Thin prep Papanicolaou smear with manual screeningOrdered By: Dr. Boyle on 08-13-2022 Thin prep Papanicolaou smear with manual screening 23 U/L 15-37 [facility] Thin prep Papanicolaou smear with manual screening 7 5-15 [facility] Absolute lymphocyte counton 11-07-2021 Lymphocytes Auto (Unsp spec) [#/Vol] 0.76 10*3/uL 0.83-4.51 [facility] Work Phone: Basophil percentageon 2021 Basophils/100 WBC (Bld) 0.6 % 0-1 [facility] Work Phone: Bilirubin [Mass/Vol] 0.80 mg/dL 0.20-1.00 [facility] Work Phone: Comment on above: For patients on eltr ombopag therapy, use of Dimension [place] TBIL is not recommended. Chloride [Moles/Vol] 107 mmol/L 98-107 [facility] Work Phone: [phone] Eosinophils/100 WBC (Bld) 2.8 % 0-5 [facility] Work Phone: [phone] Glucose [Mass/Vol] 98 mg/dL 74-106 [facility] Work Phone: [phone] Neutrophils (Bld) [#/Vol] 3.3 10*3/uL 2.0-7.7 [facility] Work Phone: Neutrophils/100 WBC (Bld) 70.0 % 47-70 [facility] Work Phone: Potassium [Moles/Vol] 3.5 mmol/L 3.5-5.1 [facility] Work Phone: Protein [Mass/Vol] 6.6 g/dL 6.4-8.2 [facility] Work Phone: Sodium [Moles/Vol] 142 mmol/L 136-145 [facility] Work Phone: [phone] WBC (Bld) [#/Vol] 4.7 10*3/uL 4.4-11.0 [facility] Work Phone: Blood erythrocytes count (nu mber/volume)on 11-07-2021 RBC (Bld) [#/Vol] 4.31 10*6/uL 4.6-6.2 [facility] Work Phone: Blood hemoglobin measurement (mass/volume)on 11-07-2021 Hemoglobin (Bld) [Mass/Vol] 14.0 g/dL 13.0-16.5 [facility] Work Phone: [phone] Blood lymphocytes/100 leukoc yteson 11-07-2021 Lymphocytes/100 WBC (Bld) 16.3 % 19-41 [facility] Work Phone: Blood monocytes/100 leukocyt eson 11-07-2021 Monocytes/100 WBC (Bld) 9.7 % 0-10 [facility] Work Phone: Blood platelet mean volumeon 11-07-2021 Platelet mean volume (Bld) [Entitic vol] 10.9 fL 6.2-12.0 [facility] Work Phone: Determination of erythrocyte mean corpuscular volume (MCV)on 11-07-2021 MCV (RBC) [Entitic vol] 96.5 fL 80-94 [facility] Work Phone: Hematocrit Auto (Bld) [Volum e fraction]on 11-07-2021 Hematocrit (Bld) [Volume fraction] 41.6 % 40-54 [facility] Work Phone: Laboratory - Chemistry and C hemistry - challengeon 11-07-2021 ALP [Catalytic activity/Vol] 66 U/L 45-117 [facility] Work Phone: [phone] ALT [Catalytic activity/Vol] 25 U/L 16-61 [facility] Work Phone: [phone] CO2 [Moles/Vol] 27.0 mmol/L 21.0-32.0 [facility] Work Phone: [phone] Globulin (S) [Mass/Vol] 3.3 g/dL 2.2-4.2 [facility] Work Phone: [phone] Urea nitrogen/Creatinine [Mass ratio] 17.3 mg/mg 10-20 [facility] Work Phone: Laboratory - Hematology and Cell countson 11-07-2021 Erythrocyte distribution width (RBC) [Entitic vol] 47.8 fL 35.1-43.9 [facility] Work Phone: [phone] Erythrocyte distribution width (RBC) [Ratio] 13.3 % 11.6-14.6 [facility] Work Phone: [phone] Immature granulocytes/100 WBC (Bld) 0.600 % 0.0-0.9 [facility] Work Phone: Comment on above: IG% - Immature Granu locytes (promyelocytes, myelocytes and metamyelocytes) > 1% indicates that a LEFT SHIFT is Present. MCH (RBC) [Entitic mass] 32.5 pg 27.0-32.0 [facility] Work Phone: Nucleated RBC/100 WBC (Bld) [Ratio] 0 % 0-5 [facility] Work Phone: [phone] MCHC Auto (RBC) [Mass/Vol]on 11-07-2021 MCHC (RBC) [Mass/Vol] 33.7 g/dL 32-36 [facility] Work Phone: No Panel Informationon 11-07 Estimated GFR (MDRD) Amer 160 mL/min >60 [facility] Work Phone: Comment on above: GFR Calc Estimated GFR (MDRD) Non-Af Amer 132 mL/min >60 [facility] Work Phone: Comment on above: Non- GFR Calc Thyroid Stimulating Hormone (TSH) 1.06 uIU/mL 0.358-3.74 [facility] Work Phone: Platelets bldon 11-07-2021 Platelets (Bld) [#/Vol] 159 10*3/uL 150-450 [facility] Work Phone: Serum or plasma albumin cezar urement (mass/volume)on 11-07-2021 Albumin [Mass/Vol] 3.3 g/dL 3.2-5.0 [facility] Work Phone: Serum or plasma albumin/glob ulin mass ratioon 11-07-2021 Albumin/Globulin [Mass ratio] 1.0 {ratio} 0.9-2.4 [facility] Work Phone: Serum or plasma calcium cezar urement (mass/volume)on 11-07-2021 Calcium [Mass/Vol] 8.6 mg/dL 8.5-10.1 [facility] Work Phone: Serum or plasma creatinine m easurement (mass/volume)on 11-07-2021 Creatinine [Mass/Vol] 0.64 mg/dL 0.70-1.30 [facility] Work Phone: Comment on above: The validity of the calculated GFR & GFRAA in patients over 70 years has not been determined. Clinical correlation is essential. Serum or plasma urea nitroge n measurement (mass/volume)on 11-07-2021 Urea nitrogen [Mass/Vol] 11 mg/dL 7-18 [facility] Work Phone: Thin prep Papanicolaou smear with manual screeningon 11-07-2021 Thin prep Papanicolaou smear with manual screening 27 U/L 15-37 [facility] Work Phone: Thin prep Papanicolaou smear with manual screening 8 5-15 [facility] Work Phone: Clinical Summary: Kevin gomez 07-27-2021 [facility] OP Visit Invalid Interpretation Code [facility] Work Phone: Vital Signs Date Time Vital Sign Value Performing Clinician Facility 2025 08:59-0400 Diastolic blood pressure 87 mm[Hg] Dr. Sudarshan Boyle DO Work Phone: [facility] 2025 08:59-0400 Systolic blood pressure 148 mm[Hg] Dr. Sudarshan Boyle DO Work Phone: [facility] 2025 07:52-0400 Body mass index (BMI) [Ratio] 30.4 kg/m2 Dr. Sudarshan Boyle DO Work Phone: [facility] 2025 07:52-0400 Body weight 85.[address] Sudarshan Boyle DO Work Phone: [facility] 2025 07:52-0400 Heart rate 64 /min Dr. Sudarshan Boyle DO Work Phone: [facility] 2025 07:52-0400 Respiratory rate 18 /min Dr. Sudarshan Boyle DO Work Phone: [facility] 2025 07:52-0400 SaO2% (BldA) [Mass fraction] 98 % Dr. Sudarshan Boyle DO Work Phone: [facility] 02-04-2025 14:29-0400 Body height 167.[address] Sudarshan Boyle DO Work Phone: [facility] 02-04-2025 14:29-0400 Body mass index (BMI) [Ratio] 30.4 kg/m2 Dr. Sudarshan Boyle DO Work Phone: [facility] 02-04-2025 14:29-0400 Body weight 85.[address] Sudarshan Boyle DO Work Phone: [facility] 02-04-2025 14:29-0400 Diastolic blood pressure 81 mm[Hg] Dr. Sudarshan Boyle DO Work Phone: [facility] 02-04-2025 14:29-0400 Heart rate 73 /min Dr. Sudarshan Boyle DO Work Phone: [facility] 02-04-2025 14:29-0400 Respiratory rate 18 /min Dr. Sudarshan Boyle DO Work Phone: [facility] 02-04-2025 14:29-0400 SaO2% (BldA) [Mass fraction] 93 % Dr. Sudarshan Boyle DO Work Phone: [facility] 02-04-2025 14:29-0400 Systolic blood pressure 132 mm[Hg] Dr. Sudarshan Boyle DO Work Phone: [facility] 12-09-2024 13:12-0400 Body height 167.[address] Sudarshan Boyle DO Work Phone: [facility] 12-09-2024 13:12-0400 Body mass index (BMI) [Ratio] 30.4 kg/m2 Dr. Sudarshan Boyle DO Work Phone: [facility] 12-09-2024 13:12-0400 Body weight 85.[address] Sudarshan Boyle DO Work Phone: [facility] 12-09-2024 13:12-0400 Diastolic blood pressure 82 mm[Hg] Dr. Sudarshan Boyle DO Work Phone: [facility] 12-09-2024 13:12-0400 Heart rate 68 /min Dr. Sudarshan Boyle DO Work Phone: [facility] 12-09-2024 13:12-0400 Respiratory rate 16 /min Dr. Sudarshan Boyle DO Work Phone: [facility] 12-09-2024 13:12-0400 SaO2% (BldA) [Mass fraction] 95 % Dr. Sudarshan Boyle DO Work Phone: [facility] 12-09-2024 13:12-0400 Systolic blood pressure 135 mm[Hg] Dr. Sudarshan Boyle DO Work Phone: [facility] 12-07-2024 08:27-0400 Body temperature 97.9 [degF] Dr. Sudarshan Boyle DO Work Phone: [facility] 12-07-2024 08:27-0400 Diastolic blood pressure 86 mm[Hg] Dr. Sudarshan Boyle DO Work Phone: [facility] 12-07-2024 08:27-0400 Heart rate 65 /min Dr. Sudarshan Boyle DO Work Phone: [facility] 12-07-2024 08:27-0400 Respiratory rate 16 /min Dr. Sudarshan Boyle DO Work Phone: [facility] 12-07-2024 08:27-0400 SaO2% (BldA) [Mass fraction] 98 % Dr. Sudarshan Boyle DO Work Phone: [facility] 12-07-2024 08:27-0400 Systolic blood pressure 132 mm[Hg] Dr. Sudarshan Boyle DO Work Phone: [facility] 09-17-2024 09:26-0400 Body height 167.[address] Sudarshan Boyle DO Work Phone: [facility] 09-17-2024 09:26-0400 Body mass index (BMI) [Ratio] 30.5 kg/m2 Dr. Sudarshan Boyle DO Work Phone: [facility] 09-17-2024 09:26-0400 Body temperature 98.2 [degF] Dr. Sudarshan Boyle DO Work Phone: [facility] 09-17-2024 09:26-0400 Body weight 85.[address] Sudarshan Boyle DO Work Phone: [facility] 09-17-2024 09:26-0400 Diastolic blood pressure 80 mm[Hg] Dr. Sudarshan Boyle DO Work Phone: [facility] 09-17-2024 09:26-0400 Heart rate 66 /min Dr. Sudarshan Boyle DO Work Phone: [facility] 09-17-2024 09:26-0400 Respiratory rate 16 /min Dr. Sudarshan Boyle DO Work Phone: [facility] 09-17-2024 09:26-0400 SaO2% (BldA) [Mass fraction] 97 % Dr. Sudarshan Boyle DO Work Phone: [facility] 09-17-2024 09:26-0400 Systolic blood pressure 166 mm[Hg] Dr. Sudarshan Boyle DO Work Phone: [facility] 06-24-2024 12:47-0500 Body mass index (BMI) [Ratio] 31 kg/m2 Dr. Sudarshan Boyle DO Work Phone: [facility] 06-24-2024 12:47-0500 Body weight 87.[address] Sudarshan Boyle DO Work Phone: [facility] 09-29-2023 09:52-0400 Body height 167.[address] Sudarshan Boyle Work Phone: [facility] 09-29-2023 09:52-0400 Body mass index (BMI) [Ratio] 31.3 kg/m2 Dr. Sudarshan Boyle Work Phone: [facility] 09-29-2023 09:52-0400 Body temperature 98.4 [degF] Dr. Sudarshan Boyle Work Phone: [facility] 09-29-2023 09:52-0400 Body weight 88.[address] Sudarshan Boyel Work Phone: [facility] 09-29-2023 09:52-0400 Diastolic blood pressure 80 mm[Hg] Dr. Sudarshan Boyle Work Phone: [facility] 09-29-2023 09:52-0400 Heart rate 71 /min Dr. Sudarshan Boyle Work Phone: [facility] 09-29-2023 09:52-0400 Respiratory rate 17 /min Dr. Sudarshan Boyle Work Phone: [facility] 09-29-2023 09:52-0400 SaO2% (BldA) [Mass fraction] 98 % Dr. Sudarshan Boyle Work Phone: [facility] 09-29-2023 09:52-0400 Systolic blood pressure 142 mm[Hg] Dr. Sudarshan Boyle Work Phone: [facility] NEGATED: Highlighted [id number] 13:02-0500 Body height 167.64 cm Wendy Evy AT [facility] Work Phone: NEGATED: Highlighted [id number] 13:02-0500 Body height 168 cm Wendy Evy AT [facility] Work Phone: NEGATED: Highlighted [id number] 13:02-0500 Body mass index (BMI) [Ratio] 29.97 kg/m2 Wendy Evy AT [facility] Work Phone: NEGATED: Highlighted [id number] 13:02-0500 Body weight 83.92 kg Wendy Evy AT [facility] Work Phone: NEGATED: Highlighted [id number] 13:02-0500 Body weight 84 kg Wendy Evy AT [facility] Work Phone: Encounters Encounter Date Encounter Type Care Provider Facility Start: 04-13-2025 End: 04-13-2025 ambulatory [facility] Facility:[facility] Start: 2025 Patient encounter procedure Susan Devi CHAIN MACHINE OPERATOR-C -Laboratory Work Phone: Start: 2025 End: 2025 Patient encounter procedure Susan Devi CHAIN MACHINE OPERATOR-C -[facility] Work Phone: Start: 2025 End: [address] Sudarshan Boyle DO Work Phone: -[facility] Start: 2025 End: 2025 ambulatory [facility] Facility:[facility] Start: 02-04-2025 End: 02-04-[address] Robi Iverson MD -[facility] Work Phone: Start: 02-04-2025 End: 02-04-[address] Sudarshan Boyle DO Work Phone: -[facility] Start: 01-21-2025 Non-patient / Non-visit Susan altamirano CHAIN MACHINE OPERATOR-C -[facility] Work Phone: Start: 01-21-2025 ambulatory [facility] Facility: [facility] Start: 01-20-2025 Non-patient / Non-visit Dr. Marii GORDON -[facility] Start: 01-20-2025 End: 01-20-[address] Sudarshan Boyle DO Work Phone: -Cardiovascular Services Start: 01-20-2025 End: 01-20-[address] Robi Iverson MD -Cardiovascular Services Work Phone: Start: 01-20-2025 End: 01-20-2025 ambulatory [facility] Facility:[facility] Start: 12-23-2024 End: 12-23-[address] Sudarshan Boyle DO Work Phone: -Cardiovascular Services Start: 12-23-2024 End: 12-23-[address] Robi Iverson MD -Cardiovascular Services Work Phone: Start: 12-22-2024 End: 12-23-2024 ambulatory Sudarshan [facility] Facility:[facility] Start: 12-22-2024 Non-patient / Non-visit Dr. Yanci mancuso MD -[facility] Start: 12-09-2024 End: 12-09-[address] Robi Iverson MD -[facility] Work Phone: Start: 12-09-2024 End: 12-09-[address] Sudarshan Boyle DO Work Phone: -[facility] Start: 12-07-2024 End: 12-07-2024 Patient encounter procedure Lobo Martínez PA -[facility] Work Phone: Start: 12-07-2024 End: 12-07-[address] Sudarshan Boyle DO Work Phone: -[facility] Start: 10-18-2024 Non-patient / Non-visit Dr. Yanci mancuso MD -[facility] Work Phone: Start: 10-18-2024 End: 10-18-[address] Sudarshan Boyle DO Work Phone: [facility] Work Phone: Start: 10-18-2024 End: 10-18-[address] Sudarshan Boyle DO -Pulmonary Services/Neurology Work Phone: Start: 10-18-2024 End: 10-18-2024 ambulatory Sudarshan [facility] Facility:[facility] Start: 09-17-2024 End: 09-17-2024 Patient encounter procedure Josue Stevens PA -[facility] Work Phone: Start: 09-17-2024 End: 09-17-2024 ambulatory Josue WYLIE Facility:[facility] Start: 06-24-2024 End: 06-24-[address] Reese Guillory MD -[facility] Work Phone: Start: 06-24-2024 End: 06-24-2024 ambulatory Reese Guillory Facility:[facility] Start: 05-31-2024 End: 05-31-2024 ambulatory Sudarshan Boyle Facility:[facility] Start: 10-03-2023 End: 10-03-[address] Sudarshan Boyle Work Phone: [facility] Work Phone: Start: 10-03-2023 End: 10-03-[address] Sudarshan Boyle Work Phone: [facility]-Laboratory Work Phone: Start: 10-02-2023 End: 10-02-[address] Sudarshan Boyle Work Phone: [facility] Work Phone: Start: 10-02-2023 End: 10-02-[address] Sudarshan Boyle Work Phone: [facility]-MRI - [facility] Work Phone: Start: 09-29-2023 End: 09-29-[address] Sudarshan Boyle Work Phone: [facility] Neurology Work Phone: Start: 05-06-2023 Non-patient / Non-visit Dr. Charlotte Boyle Work Phone: [facility] Start: 05-06-2023 End: 05-06-[address] Sudarshan Boyle Work Phone: [facility] Work Phone: Start: 05-06-2023 End: 05-06-[address] Sudarshan Boyle Work Phone: [facility]-Pulmonary Services/Neurology Work Phone: Start: 04-09-2023 End: 04-09-2023 ambulatory [facility] Work Phone: Start: 04-09-2023 End: 04-09-2023 Patient encounter procedure [facility]-Ivette Mcnamara [facility] Start: 08-13-2022 End: 08-13-2022 ambulatory [facility] Work Phone: Start: 08-13-2022 End: 08-13-2022 [facility] Start: 11-07-2021 End: 11-07-2021 [facility] Start: 09-18-2021 End: 09-18-2021 Discharged Recurring [facility]-Physical Therapy Start: 09-18-2021 Registered Recurring [facility] Therapy Procedures Date Procedure Procedure Detail Performing [...] 07-27-2021 End: 07-27-2021 Docrev cur meds by andie clin Wilbert Bush MD Work Phone: Start: 07-27-2021 End: 07-27-2021 Pain doc pos and plan Wilbert Bush MD Work Phone: Start: 07-27-2021 End: 07-27-2021 Patient encounter procedure Wilbert Bush MD Work Phone: NEGATED: Highlighted rowStart: 07-27-2021 End: 07-27-2021 Documentation of current medications Wendy Ratliff AT Plan of Treatment Date Care Activity Detail Author Start: 2025 End: 2025 Evaluation of diagnostic study results [facility] Start: 02-04-2025 Evaluation of diagno stic study results [facility] Start: 12-09-2024 Evaluation of diagno stic study results [facility] Start: 10-03-2023 Viborg and lambda light chains [facility] Start: 10-03-2023 Thiamine measurement [facility] Start: 07-27-2021 End: 07-27-2021 Patient encounter procedure Appointment [facility] Work Phone: Evaluation of diagno stic study results [facility] Viborg/lambda light chain ratio [facility] Lambda light chains. free [Mass/volume] in Serum or Plasma [facility] Stress echocardiography [facility] Urine kappa light ch ain measurement [facility] US Heart [facility] Immunizations Immunization Date Immunization Notes Care Provider Fa cility 08-30-2020 Covid (Moderna) [facility] 08-02-2020 Covid ([facility]) [facility] 10-17-2018 tetanus toxoid, redu pavan diphtheria toxoid, and acellular pertussis vaccine, adsorbed [facility] Payers Date Payer Category Payer Private Health Insurance [id number] Self-pay [id number] 2016 Medicare [id number] 2016 Private Health Insurance [id number] Unknown [id number] 2.16.8 [id number] Unknown [id number] 2.16.8 40.1.579620.3.579.2.462 Unknown [id number] 2.16.8 40.1.098174.3.579.2.462 Unknown [id number] 2.16.8 40.1.197938.3.579.2.462 Unknown [id number] 2.16.8 40.1.823808.3.579.2.462 Unknown [id number] 2.16.8 40.1.606966.3.579.2.462 Unknown [id number] 2.16.8 40.1.285247.3.579.2.462 Unknown [id number] 2.16.8 40.1.254573.3.579.2.462 Unknown [id number] 2.16.8 40.1.684081.3.579.2.462 Unknown [id number] 2.16.8 40.1.432611.3.579.2.462 Unknown [id number] 2.16.8 40.1.944580.3.579.2.462 Unknown [id number] 2.16.8 40.1.164125.3.579.2.462 Unknown [id number] 2.16.8 40.1.441686.3.579.2.462 Unknown [id number] 2.16.8 40.1.297143.3.579.2.462 Unknown [id number] 2.16.8 40.1.976171.3.579.2.462 Unknown [id number] 2.16.8 40.1.024219.3.579.2.462 Unknown [id number] 2.16.8 40.1.977535.3.579.2.462 Unknown [id number] 2.16.8 40.1.124457.3.579.2.462 Social History Date Type Detail Facility Start: 01-29-2020 End: 01-29-2020 Assertion Unknown if ever smoked [facility] Work Phone: Start: 09-21-2017 None [place] [facility] [place] [place] Start: 05-31-2019 With Family [facility] [facility] [place] [place] Start: 04-25-2021 Non-smoker [facility] Start: 1950 Sex Assigned At Male [facility] Start: 05-26-2024 Tobacco smoking stat us NHIS Never smoked tobacco (finding) [facility] Sex Male [facility] Medical Equipment Procedure Code Equipment Code [...] FDA Start: 09-21-2017 Clinical Notes 05-06-2023 to 2025 Note Date & Type Note Facility 2025 Progress note [facility] 12-09-2024 Evaluation note Diagnosis Onset Date Resolution Paroxysmal atrial fibrillation acute December 09, 2024 1:07pm Coronary atherosclerosis of [place] coronary artery chronic December 092024 1:07pm HLD (hyperlipidemia) chronic December 09, 2024 1:07pm HTN (hypertension) chronic December 092024 1:07pm Atrial fibrillation noneactive December 09, 2024 1:07pm [facility] Work Phone: 1(226) 430-326607-03-2025 Evaluation note* Diagnosis Onset Date Resolution Status Admit Date Paroxysmal atrial fibrillation acute December 09, 2024 1:07pm Coronary atherosclerosis of [place] coronary artery chronic December 09, 2024 1:07pm HLD (hyperlipidemia) chronic December 09, 2024 1:07pm HTN (hypertension) chronic December 092024 1:07pm Atrial fibrillation noneactive December 09, 2024 1:07pm Paroxysmal atrial fibrillation acute February 04, 2025 2:26pm Coronary atherosclerosis of [place] coronary artery chronic February 042024 2:26pm HLD (hyperlipidemia) chronic Augu [facility] 2024 2:26pm HTN (hypertension) chronic February 04, 2025 2:26pm Paroxysmal atrial fibrillation acute 2025 8:36am Coronary atherosclerosis of [place] coronary artery chronic March 092024 8:36am HLD (hyperlipidemia) chronic Octo donavan 2024 8:36am HTN (hypertension) chronic Octobe r 2024 8:36am [facility] Work Phone: 1(559) 656-739507-01-2025 Progress [facility] [address], [address] [place] [address] OFFICE VISIT Date of Service: 12/07/24 MR#: [id number] Acct: [id number] Name: RICHARD HERNÁNDEZ Rep #: [id number] : 1950 Provider: DEJAN Cruz Age/Sex: 74/M Location: [facility] Status: Signed Intake Vital Signs 09/17/24 09:26 [...] wasn't helping it. Patient states it itches. [facility] Medical History Wears glasses Low iron High [...] hiking. Patient states he has used multiple wylt-qsq-zufnrvf topical applications without relief of symptoms. No [...] in the past year?: No 12/07/24 0844 s DEJAN WYLIE> Date _ Lobo WYLIE Cosigner Signature: Date (if applicable) CC: ~ [facility]07-01-2025 Progress note Author Lobo Martínez [facility] Note Date/Time December 07, 2024 8:44a [facility] [address], [address] [place], [place] [address] OFFICE VISIT Date of Service: 12/07/24 MR#: [id number] Acct: [id number] Name: RICHARD HERNÁNDEZ Rep #: [id number] : 1950 Provider: DEJAN Cruz Age/Sex: 74/M Location: [facility] Status: Signed Intake Vital Signs 09/17/24 09:26 07/01/25 08:27 Height 5 ft 6 in Weight: [...] 08:25) Swelling duloxetine Adverse Reaction (Verified 12/07/24 08:) Tired, Light headed olmesartan medoxomil (From [facility]) Adverse Reaction (Verified 12/07/24 08:25) Unknown Medications [...] tablet 10 mg PO DAILY #30 tabs 07/0 1/25 07/01/25 Rx Have you fallen in the past year?: No Nurse's Note: Patient has a rash and lumps on bilateral arms and on the back of his neck. Patient states that it happen on th of last week. Patient was using OTC medication but it wasn't helping it. Patient states it itches. [facility] Medical History Wears glasses Low iron High [...] hiking. Patient states he has used multiple uhqj-xme-mmhfzpc topical applications without relief of symptoms. No [...] Cosigner Signature: Date (if applicable) CC: ~ [place] [facility] Work Phone: 1(394) 612-736904-11-2025 Evaluation note* Diagnosis Onset Date Resolution Status Admit Date Peripheral neuropathy acute Sep 9:04am Right foot pain acute September 9:04am [facility] Work Phone: 1([phone]) 325-820904-11-2025 Evaluation note* Diagnosis Onset Date Resolution Status Admit Date Peripheral neuropathy acute Sep 9:04am Right foot pain acute September 9:04am Paroxysmal atrial fibrillation acute December 09, 2024 1:07pm Coronary atherosclerosis of [place] coronary artery chronic December 09, 2024 1:07pm Atrial fibrillation noneactive December 09, 2024 1:07pm [place] [facility] Work Phone: 1(955) 481-318104-11-2025 Evaluation note* Diagnosis Onset Date Resolution Status Admit Date Peripheral neuropathy acute Sep 9:04am Right foot pain acute September 9:04am Paroxysmal atrial fibrillation acute December 09, 2024 1:07pm Coronary atherosclerosis of [place] coronary artery chronic December 09, 2024 1:07pm HLD (hyperlipidemia) chronic December 09, 2024 1:07pm HTN (hypertension) chronic December 092024 1:07pm Atrial fibrillation noneactive December 09, 2024 1:07pm [facility] Work Phone: 1(613) 165-991301-16-2025 Evaluation note* Diagnosis Onset Date Resolution Status Admit Date Peripheral neuropathy acute Jun 12:40pm Spinal stenosis of lumbar region with neurogenic claudication acute June 24 12:40pm Spondylolisthesis, lumbar region acute June 24 12:40pm Peripheral neuropathy acute Sep 9:04am Right foot pain acute September 9:04am [facility] Work Phone: 1([phone]) 364-305912-23-2024 [facility] Medical Records Department [facility] [place] [address] History Physical Exam 05/31/2418 MR#: [id number] Acct: [id number] Name: RICHARD HERNÁNDEZ Rep #: [id number] : 1950 74 From: James Crane DO PCP: Dr. Sudarshan Boyle, DO Status:[facility] Location: [place] [address] HPI - General General Date of Admission: [...] is on aspirin on a daily basis. [facility] Medical History Wears glasses Low iron High [...] Dr. Sudarshan Boyle DO; James Crane DO [facility]igned[facility]11[facility] Procedure noteWLouis Stokes [facility] Medical CenterEvaluation noteThere may be information available, but it has not been provided by the sender.[facility] Work Phone: Evaluation noteNo assessment information available [facility] Work Phone: Evaluation note* Diagnosis Onset Date Resolution Status Polyneuropathy acute Chronic lumbar radiculopathy chronic [facility] Work Phone: Instructions* Instruction Description Start Date CompletedPatient advised to follow-up with Primary Care Physician for BMI management. [facility] Work Phone: Progress note Author Susan Devi [facility] Note Date/Time 2025 9 :33am [facility] [address] [place] [address] OFFICE VISIT Date of Service: 03/25/25 MR#: [id number] Acct: [id number] Name: RICHARD HERNÁNDEZ Rep #: [id number] : 1950 Provider: JOSEPHINE Devi Age/Sex: 75/M Location: [facility] Status: Signed HPI HPI History of Present Illness Details: Patient is a pleasant 75-year-old white male who presents to the office today for a cardiovascular follow-up visit. He carries a history of paroxysmal atrial fibrillation. He is not always aware when he goes into atrial fibrillation he does have an iWatch, that he has been monitoring his atrial fibrillation on. It does show that he is in atrial fibrillation >8%. The patient had a negative ischemic stress test January 2025; his echo showed no significant valvular heart disease and an EF of 65% with normal LV function December2024. He had a Holter monitor done in October 2024, we originally found the atrial fibrillation and he was totally asymptomatic at that time. He is now aware withthe palpitations and sometimes progressive fatigue. He did bike across [place] last week, and his iWatch demonstrated 10% atrial fibrillation-mostly at night while he was sleeping. From a cardiac standpoint, the patient is doing well. He does acknowledge palpitations, and fatigue when he is in atrial fibrillation. He denies any chestpain, pressure or heaviness. He denies SOB, Orthopnea, and PND. He does not havebleeding issues; no blood in urine, stool, or nosebleeds. He denies any decreasein energy level, myalgias, or claudication. He does not have edema, or sudden weight gain. He denies lightheadedness, dizziness, syncopal or near syncopal episodes, and headaches. Intake Vital Signs 02/04/25 14:29 03/25/25 07:52 03/25/25 08:59 Height 5 ft 6 in 5 ft 6 in Weight: 189 lb BMI 30.4 BP 157/81 H 148/87 H Blood Pressure Location Rt brachial Rt brachial Position Sitting Sitting Respiration 18 Pulse 64 Pulse Source Monitor Pulse Oximetry (%) 98 Oxygen Delivery Method room air Intake Visit Reasons: Atrial fibrillation Risk Control Manager Required: No Accompanied by: Self Is patient in pain?: No Allergies cinnamon Allergy (Verified 03/25/25 09:28) Swelling molasses Allergy (Verified 03/25/25 09:28) Swelling duloxetine Adverse Reaction (Verified 03/25/25 09:28) Tired, Light headed olmesartan medoxomil (From [facility]) Adverse Reaction (Verified 03/25/25 09:28) Unknown Medications ?Medication ?Instructions ?Recorded ?Confirmed ?Type fish oil-dha-epa 1,200 mg-144 2 ea PO DAILY 03/12/16 1 History mg-216 mg capsule magnesium 250 mg tablet 250 mg PO DAILY 03/12/16 History metoprolol tartrate 50 mg tablet 50 mg PO QHS 03/12/16 03/25/25 History multivitamin with folic acid 400 1 tab PO DAILY 03/25/25 History mcg tablet potassium chloride 10 mEq 10 meq PO BID 03/12/1603/25 History tablet,extended release(part/cryst) atorvastatin 40 mg tablet 40 mg PO QHS 08/29/18 History omeprazole 40 mg capsule,delayed 40 mg PO DAILY 03/25/25 History release ferrous sulfate 325 mg (65 mg 325 mg PO MOWEFR 4 03/25/25 History iron) tablet (Feosol) apixaban 5 mg tablet (Eliquis) 5 mg PO BID #180 tabs 0 12/15/24 03/25/25 Rx psyllium husk 0.4 gram capsule 0.4 g PO BID 03/25/25 1 History Ejection fraction %: 65 Have you fallen in the past year?: No Nurse's Note: Pt just returned from a 240 mile bike ride in [place] last week. [facility] Medical History Wears glasses Low iron High [...] type: does not use ROS Const Const: Positive for fatigue (only when in afib); Negative for weakness or headache(s) Eyes Eyes: Negative for change in vision ENT ENT: Negative for headache(s), dizziness, Nosebleed/epistaxis or balance problems Cardio Chest Pain: No Palpitations: Yes feels like its: pounding Resp Respiratory: Negative for SOB with activity GI GI: Negative nausea, vomiting, heartburn or bright, red blood in stools : Negative for hematuria Musc Musc: Negative for balance problems Neuro Neuro: Negative for dizziness, lightheadedness, syncope, headache(s) or weakness Endo Endo: Positive for fatigue (only when in afib) Cardiology Exam Const Appearance: cooperative, healthy appearing, comfortable, no acute distress and well developed Nutritional Appearance: average body habitus and obese Orientation: alert and oriented x3 Head Head: normal to inspection Ears: hearing grossly normal bilaterally Nose: external nose normal Face and Sinus: face symmetric Eyes General: appearance normal, both eyes and all related structures Eyelids: eyelids normal Conjunctivae: conjunctivae normal Pupils: PERRL and pupil size EOM: EOM intact bilaterally Neck Neck: normal visual inspection and no JVD Carotids: Negative bruit Chest Chest inspection: normal inspection of the chest Auscultation: Bilateral: Clear to Auscultation Cardio Palpation: normal PMI Rate: regular rate Rhythm: regular rhythm Heart sounds: S1 normal and S2 normal; Negative rub, gallop or murmur GI GI: normal to inspection and obese Neuro General: patient alert and patient oriented x3 Skin Skin: no rashes or lesions noted Extremities Pulses: Normal: Right Posterior Tibial Pulse, Left Posterior Tibial Pulse, RightRadial Pulse and Left Radial Pulse Lower Extremity Edema: None: Bilateral Psych Psychological: normal affect Supplemental Info Supplemental Information Stress Echocardiogram 01/20/2025 Conclusion: Exercise stress echocardiogram with no EKG criteria for ischemia at a high workload. 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 No ischemia is noted, at a high workload. Echocardiogram 12/22/2024 Interpretation Summary The LV ejection fraction is 65 %. The left atrium is mildly enlarged. Mild mitral valve annular calcification. Mild mitral valve regurgitation. Mildly calcified aortic valve. Aortic valve sclerosis without stenosis. Trivial to mild aortic valve regurgitation. Holter Monitor 10/18/2024 Interpretation There were a total of 204,348 beats recorded over the 48 hour period. Normal sinus rhythm with one episode of atrial fibrillation. Average HR was 71 BPM Minimum HR was 52 BPM, sinus bradycardia Maximum HR was 135 BPM, atrial fibrillation The longest R-R interval was 1.7 seconds There were a total of 7892 premature ventricular ectopic isolated beats, comprising of 3.9% of the total QRS complexes. 11 triplets, 204 couplets, 1 interpolated beats, 660 bigeminy, and 1223 trigeminal beats. No runs noted. There were a total of 361 premature supraventricular ectopic isolated beats, comprising 0.2% of the total QRS complexes. 1 atrial pair. No runs noted. There was one episode of atrial fibrillation consisting of 0.1% of total QRS complexes. The patient kept a diary with no symptoms Cardiac Catheterization 01/18/2004 Conclusions 1. Normal left ventricular systolic function, ejection fraction 55%. 2. Left anterior descending with 10-20% proximal stenosis. 3. Third diagonal is small with 20-30% ostial stenosis. 4. Circumflex coronary with 10-20% mid-stenosis. 5. Right coronary artery with 10% proximal stenosis. Assessment and Plan Assessment and Plan (1) Paroxysmal atrial fibrillation: Status: Acute Plan: Patient has a history of paroxysmal atrial fibrillation. His EKG from today demonstrates normal sinus rhythm heart rate 65 bpm, QT/QTc: 410/426. Patient hada remote catheterization in 2003 where he had 10 to 20% stenosis but nothing critical. His most recent stress echocardiogram from January of this year was negative at a high workload with some basal inferior changes but no ischemia. His echocardiogram from 12/23/2024 demonstrated ejection fraction of 65%, normal right atrium, and mildly enlarged left atrium. He has no significant valvular heart disease documented. He does wear an iWatch, that demonstrated 10% of atrial fibrillation last week while he was biking across [place]. This could berelated to his extreme physical activity, and electrolyte imbalance. All other readings, were less than 2%. Did discuss starting Flecainide therapy, but at this time, patient would like to continue with his current medical therapy, along with monitoring for any increased episodes. Will obtain lab work today to assess his electrolytes, blood count, and thyroid. Depending on results, furtherrecommendations will be made. He will continue Eliquis 5 mg twice daily, and metoprolol tartrate 50 mg at at bedtime. He will continue to monitor for any concerning symptoms of atrial fibrillation. (2) HTN (hypertension): Status: Chronic Qualifiers: Hypertension type: primary hypertension Qualified Code(s): I10 - Essential (primary) hypertension Plan: Patient has a history of hypertension. His blood pressure is elevated in the office today at 157/81 with recheck 148/87. He states his blood pressures at home have been well controlled. He will continue metoprolol to tartrate 50 mg daily, along with monitoring his blood pressures at home. He will notify our office of any blood pressure readings in 1-2 weeks. If deemed appropriate, we may need to place him back on amlodipine therapy. (3) HLD (hyperlipidemia): Status: Chronic Qualifiers: Hyperlipidemia type: pure hypercholesterolemia Qualified Code(s): E78.00 - Pure hypercholesterolemia, unspecified Plan: Patient has a history of hyperlipidemia. His PCP monitors this. His most recent lipid panel from 04/12/2024: Cholesterol 136, HDL 55, LDL 66, triglycerides 74. Patient will continue atorvastatin 40 mg daily, along with aggressive risk factor and lifestyle modifications. A copy of his most recent lipid panel would be greatly appreciated for continuity of care. (4) Coronary atherosclerosis of [place] coronary artery: Status: Chronic Qualifiers: Associated angina: without angina [place] vs. transplanted heart: nativeheart Qualified Code(s): I25.10 - Atherosclerotic heart disease of [place] coronary artery without angina pectoris Plan: Patient had minimal nonobstructive coronary disease on the cath in 2003. He is aerobically active- biking across country and rides 30 miles a day at a time. He is totally asymptomatic. Secondary risk factors are being addressed. Orders: Orders 12 Lead EKG performed by BMS Today I48.0 - Paroxysmal atrial fibrillation Basic Metabolic Profile (BMP) Today I48.0 - Paroxysmal atrial fibrillation CBC W/Diff, Automated Today I48.0 - Paroxysmal atrial fibrillation Magnesium Today I48.0 - Paroxysmal atrial fibrillation Thyroid Stim Hormone (TSH) Today I48.0 - Paroxysmal atrial fibrillation Plan Details Additional Comments: Patient will follow-up in 4 months, or sooner if needed. Thank you for allowing me to participate in the care of your patient. Please donot hesitate to call if any issues arise. This note was generated using a voice recognition system and there may be incorrect words, spelling, or punctuation that were not noted when reviewing theoffice note prior to saving. Portions of this documentation were copied and pasted from previous office visitnotes to provide cohesive continuity of the history. The note has been reviewed,edited, and updated, as necessary. Follow Up: Keep as is (R) Coding Level of Care Code Off vis,est,level 4 Diagnoses Paroxysmal atrial fibrillation I48.0 Primary hypertension I10 Hypertension type: primary hypertension Pure hypercholesterolemia E78.00 Hyperlipidemia type: pure hypercholesterolemia Atherosclerosis of [place] coronary artery of [place] heart without angina pectoris I25.10 Associated angina: without angina [place] vs. transplanted heart: [place] heart Coding Level of Care Code Off vis,est,level 4 Diagnoses Paroxysmal atrial fibrillation I48.0 Primary hypertension I10 Hypertension type: primary hypertension Pure hypercholesterolemia E78.00 Hyperlipidemia type: pure hypercholesterolemia Atherosclerosis of [place] coronary artery of [place] heart without angina pectoris I25.10 Associated angina: without angina [place] vs. transplanted heart: [place] heart Clinical Quality Measures Falls Risk Screening/Assistive Devices Have you fallen in the past year?: No Cardiac Ejection fraction %: 65 03/25/25 0938 <Electronically signed by Susan Devi NP CHAIN MACHINE OPERATOR-C> Date _ Susan Devi NP CHAIN MACHINE OPERATOR-C Cosigner Signature: Date (if applicable) CC: Dr. Sudarshan Boyle, DO ~ [facility] Work Phone: Reason for referral (narrative)No reason for referral information availableWLouis Stokes [facility] Work Phone: Chief Complaint Chief [...] Yes January 28 0 2:22am Power of Yarn Spooler Yes January 28, 2 020 2:22am Advance Directive Response Recorded Date/ Time Advance Directives Yes June 13, 2016 8:20am Living Will Yes January 28 0 1:22am Power of Yarn Spooler Yes January 28, 2 020 1:22am Advance [...] December 09, 2024 1:07pm Coronary atherosclerosis of [place] coron [place] artery December 09, 2024 1:07pm Atrial fibrillation December 09, 2024 1:07p m Chief Complaint Admit Date R FOOT PAIN/REDNESS/SWELLING September 17, 2024 9:04am AFIB October 18, 2024 8:48a m Atrial fibrillation October 18, 2024 9:03a m RASH/BUMPS December 07, 2024 8:21a m Atrial fibrillation December 09, 2024 1:07p m atrial fib-flutter December 23, 2024 6:59 am Reason for Visit Admit Date Peripheral neuropathy September 17, 2024 9 :04am Right foot pain September 17, 2024 9:0 4am Paroxysmal atrial fibrillation December 09, 2024 1:07pm Coronary atherosclerosis of [place] coron [place] artery December 09, 2024 1:07pm HLD (hyperlipidemia) December 09, 2024 1:07 pm HTN (hypertension) December 09, 2024 1:07p m Atrial fibrillation December 09, 2024 1:07p m Chief Complaint Admit Date AFIB October 18, 2024 8:48a m Atrial fibrillation October 18, 2024 9:03a m RASH/BUMPS December 07, 2024 8:21a m Atrial fibrillation December 09, 2024 1:07p m atrial fib-flutter December 23, 2024 6:59 am atrial fib-flutter January 20, 2025 10 :49am Amb Documentation January 21, 2025 2: 41pm Reason for Visit Admit Date Paroxysmal atrial fibrillation December 09, 2024 1:07pm Coronary atherosclerosis of [place] coron [place] artery December 09, 2024 1:07pm HLD (hyperlipidemia) December 09, 2024 1:07 pm HTN (hypertension) December 09, 2024 1:07p m Atrial fibrillation December 09, 2024 1:07p m Chief Complaint Admit Date AFIB October 18, 2024 8:48a m Atrial fibrillation October 18, 2024 9:03a m RASH/BUMPS December 07, 2024 8:21a m Atrial fibrillation December 09, 2024 1:07p m atrial fib-flutter December 23, 2024 6:59 am atrial fib-flutter January 20, 2025 10 :49am Amb Documentation January 21, 2025 2: 41pm 2 M FU February 04, 2025 2: 26pm Chief Complaint Admit Date RASH/BUMPS December 07, 2024 8:21a m Atrial fibrillation December 09, 2024 1:07p m atrial fib-flutter December 23, 2024 6:59 am atrial fib-flutter January 20, 2025 10 :49am Amb Documentation January 21, 2025 2: 41pm 2 M FU February 04, 2025 2: 26pm Atrial fibrillation 2025 8 :36am E ORDER 2025 9 :44am Reason for Visit Admit Date Paroxysmal atrial fibrillation December 09, 2024 1:07pm Coronary atherosclerosis of [place] artery December 09, 2024 1:07pm HLD (hyperlipidemia) December 09, 2024 1:07 pm HTN (hypertension) December 09, 2024 1:07p m Atrial fibrillation December 09, 2024 1:07p m Paroxysmal atrial fibrillation February 042024 2:26pm Coronary atherosclerosis of [place] artery February 04, 2025 2:26pm HLD (hyperlipidemia) February 04, 2025 2 :26pm HTN (hypertension) February 04, 2025 2: 26pm Paroxysmal atrial fibrillation March 092024 8:36am Coronary atherosclerosis of [place] artery 2025 8:36am HLD (hyperlipidemia) 2025 8:36am HTN (hypertension) 2025 8 :36am Summary Purpose Additional Source Comments Reason for [...] Inactive Member Role Status Dates Dr. Sudarshan Byole DO Primary Care Provider Active Start: October [...] September 17, 2024 End: September 17, 2024 Josue WYLIE, PA Attending Provider Active Sta rt: September 17, [...] 07, 2024 End: December 07, 2024 Lobo Martínez PA, PA Attending Provider Active Start: December 07, [...] December 09, 2024 End: December 09, 2024 Team Status: Active Member Role/Relationship Status Dates Dr. Sudarshan Boyle DO Primary Care Provider Active Start: December 22, 2024 Dr. Yanci Anderson MD Attending Provider Active Start: December 22, 2024 Team Status: Inactive Member Role/Relationship Status Dates Dr. Sudarshan Boyle DO Primary Care Provider Active Start: December 23, 2024 End: December 23, 2024 Dr. Robi Iverson MD Attending Provider Active Start: December 23, 2024 End: December 23, 2024 Dr. Robi Iverson MD Referring Provider Active Start: December 23, 2024 End: December 23, 2024 Team Status: Inactive Member Role/Relationship Status [...] December 09, 2024 End: December 09, 2024 Team Status: Active Member Role/Relationship Status Dates Dr. Sudarshan Boyle DO Primary Care Provider Active Start: December 22, 2024 Dr. Yanci Anderson MD Attending Provider Active Start: December 22, 2024 Team Status: Inactive Member Role/Relationship Status Dates Dr. Sudarshan Boyle DO Primary Care Provider Active Start: December 23, 2024 End: December 23, 2024 Dr. Robi Iverson MD Attending Provider Active Start: December 23, 2024 End: December 23, 2024 Dr. Robi Iverson MD Referring Provider Active Start: December 23, 2024 End: December 23, 2024 Team Status: Inactive Member Role/Relationship Status Dates Dr. Sudarshan Boyle DO Primary Care Provider Active Start: January 20, 2025 End: January 20, 2025 Dr. Robi Iverson MD Attending Provider Active Start: January 20, 2025 End: January 20, 2025 Dr. Robi Iverson MD Referring Provider Active Start: January 20, 2025 End: January 20, 2025 Team Status: Active Member Role/Relationship Status Dates Dr. Sudarshan Boyle DO Primary Care Provider Active Start: January 20, 2025 Dr. Tim Hernandez MD Attending Provider Active S tart: January 20, 2025 Team Status: Active Member Role/Relationship Status Dates Dr. Sudarshan Boyle DO Primary Care Provider Active Start: January 21, 2025 Susan Devi CHAIN MACHINE OPERATOR, CHAIN MACHINE OPERATOR-C Attending Provider Active Start: January 21, 2025 Team Status: Inactive Member Role/Relationship Status Dates [...] 07, 2024 End: December 07, 2024 Lobo Martínez PA, PA Attending Provider Active Start: December 07, [...] December 09, 2024 End: December 09, 2024 Team Status: Active Member Role/Relationship Status Dates Dr. Sudarshan Boyle DO Primary Care Provider Active Start: December 22, 2024 Dr. Yanci Anderson MD Attending Provider Active Start: December 22, 2024 Team Status: Inactive Member Role/Relationship Status Dates Dr. Sudarshan Boyle DO Primary Care Provider Active Start: December 23, 2024 End: December 23, 2024 Dr. Robi Iverson MD Attending Provider Active Start: December 23, 2024 End: December 23, 2024 Dr. Robi Iverson MD Referring Provider Active Start: December 23, 2024 End: December 23, 2024 Team Status: Inactive Member Role/Relationship Status Dates Dr. Sudarshan Boyle DO Primary Care Provider Active Start: January 20, 2025 End: January 20, 2025 Dr. Robi Iverson MD Attending Provider Active Start: January 20, 2025 End: January 20, 2025 Dr. Robi Iverson MD Referring Provider Active Start: January 20, 2025 End: January 20, 2025 Team Status: Active Member Role/Relationship Status Dates Dr. Sudarshan Boyle DO Primary Care Provider Active Start: January 20, 2025 Dr. Tim Hernandez MD Attending Provider Active S tart: January 20, 2025 Team Status: Active Member Role/Relationship Status Dates Dr. Sudarshan Boyle DO Primary Care Provider Active Start: January 21, 2025 Susan Devi CHAIN MACHINE OPERATOR, CHAIN MACHINE OPERATOR-C Attending Provider Active Start: January 21, 2025 Team Status: Inactive Member Role/Relationship Status Dates Dr. Sudarshan Boyle DO Referring Provider Active Start: February 04, 2025 End: February 04, 2025 Dr. Robi Iverson MD Attending Provider Active Start: February 04, 2025 End: February 04, 2025 Team Status: Active Member Role/Relationship Status Dates Dr. Sudarshan Boyle DO Primary care physician Active Team Status: Inactive Member Role/Relationship Status Dates Dr. Sudarshan Boyle DO Primary care physician Active Start: December 07, 2024 End: December 07, 2024 Dr. Sudarshan Boyle DO Referring Provider Active Start: December 07, 2024 End: December 07, 2024 Lobo Martínez PA, PA Attending physician Active Start: December 07, 2024 End: December 07, 2024 Team Status: Inactive Member Role/Relationship Status Dates Dr. Sudarshan Boyle DO Primary care physician Active Start: December 09, 2024 End: December 09, 2024 Dr. Sudarshan Boyle DO Referring Provider Active Start: December 09, 2024 End: December 09, 2024 Dr. Robi Iverson MD Attending physician Active Start: December 09, 2024 End: December 09, 2024 Team Status: Active Member Role/Relationship Status Dates Dr. Sudarshan Boyle DO Primary care physician Active Start: December 22, 2024 Dr. Yanci Anderson MD Attending physician Active Start: December 22, 2024 Team Status: Inactive Member Role/Relationship Status Dates Dr. Sudarshan Boyle DO Primary care physician Active Start: December 23, 2024 End: December 23, 2024 Dr. Robi Iverson MD Attending physician Active Start: December 23, 2024 End: December 23, 2024 Dr. Robi Iverson MD Referring Provider Active Start: December 23, 2024 End: December 23, 2024 Team Status: Inactive Member Role/Relationship Status Dates Dr. Sudarshan Boyle DO Primary care physician Active Start: January 20, 2025 End: January 20, 2025 Dr. Robi Iverson MD Attending physician Active Start: January 20, 2025 End: January 20, 2025 Dr. Robi Iverson MD Referring Provider Active Start: January 20, 2025 End: January 20, 2025 Team Status: Active Member Role/Relationship Status Dates Dr. Sudarshan Boyle DO Primary care physician Active Start: January 20, 2025 Dr. Tim Hernandez MD Attending physician Active Start: January 20, 2025 Team Status: Active Member Role/Relationship Status Dates Dr. Sudarshan Boyle DO Primary care physician Active Start: January 21, 2025 Susan Devi CHAIN MACHINE OPERATOR, CHAIN MACHINE OPERATOR-C Attending physician Active Start: January 21, 2025 Team Status: Inactive Member Role/Relationship Status Dates Dr. Sudarshan Boyle DO Referring Provider Active Start: February 04, 2025 End: February 04, 2025 Dr. Robi Iverson MD Attending physician Active Start: February 04, 2025 End: February 04, 2025 Team Status: Inactive Member Role/Relationship Status Dates Susan Devi NP, CHAIN MACHINE OPERATOR-C Attending physician Active Start: 2025 End: 2025 Dr. Sudarshan Boyle DO Primary care physician Active Start: 2025 End: 2025 Dr. Sudarshan Boyle DO Referring Provider Active Start: 2025 End: 2025 Team Status: Active Member Role/Relationship Status Dates Dr. Sudarshan Boyle DO Primary care physician Active Start: 2025 Susan Devi NP, CHAIN MACHINE OPERATOR-C Attending physician Active Start: 2025 Susan Devi NP, CHAIN MACHINE OPERATOR-C Referring Provider Active Start: 2025 (unrecognized sect ion and content) No Status Records Found INFORMATION SOURCE (unrecogn ized section and content) DATE CREATED AUTHOR 04/14/2025 [facility] FOR RECORDS PERTAINING TO [...] BE BASED ON THE PRIMARY CLINICAL RECORDS. [facility]. provides no warranty or guarantee of the accuracy or completeness of information in this document.
--- NOTE | 2025-05-17 07:23 | BD_ITS ---
PROCEDURE: DEXA BONE DENSITY STUDY 05/17/2025 REASON FOR EXAM: M, age 75 y/o . Postmenopausal. TECHNIQUE: Procedure Code: BDDBD Modality: DX Procedure: DEXA BONE DENSITY STUDY COMPARISON: None FINDINGS: BMD and T-SCORES Lumbar spine: 1.227 g/cm2, T-score 1.2 Levels: L1 through L4 Left femoral neck: 0.655 g/cm2, T-score -2.0 Femoral neck comparison data not recommended for monitoring change. Left total hip: 0.877 g/cm2, T-score -1.0 Right femoral neck: 0.684 g/cm2, T-score -1.8 Femoral neck comparison data not recommended for monitoring change. Right total hip: 0.854 g/cm2, T-score -1.2 The World Health Organization has defined the following categories based on bone density: Normal bone density: T-score equal to or greater than -1.0 Osteopenia: T-score between -1.0 and -2.5 Osteoporosis: T-score equal to or less than -2.5 FRAX (or Comparable) Fracture Risk Assessment: 10 Year Probability of Fracture: Major Osteoporotic Fracture: 12% Hip Fracture: 3.8% (Note: FRAX is not to be reported in setting of normal range bone density, osteoporosis on DEXA, known history of osteoporosis, prior osteoporotic hip or vertebral fracture, or for any patient undergoing pharmacological treatment for bone loss.) The National Osteoporosis Foundation (NOF) recommends pharmacological treatment for patients with a FRAX 10-year risk of 3% or higher for a hip fracture, or 20% or higher for a major osteoporotic fracture, to prevent osteoporosis and reduce fracture risk. The patient does meet the pharmacological treatment recommendations for prevention of osteoporosis. BD/Dexa Bone Density Study IMPRESSION: OSTEOPENIA. Recommend follow-up as clinically warranted. Reading Location: [place] [id number]
== END | disposition home or self-care (01) ==
PROVIDERS: PCP Family Medicine; Referring Provider Family Medicine; Visit Provider Family Medicine
DX: M81.0 Age-related osteoporosis without current pathological fracture (principal)
CPT/HCPCS: 77080

== ENCOUNTER → 2025-05-20 | Outpatient (CLI) | payer MEDICARE, OTHER, SELFPAY | END | disposition home or self-care (01) | LOC: PSN 09:21 | PROVIDERS: PCP Family Medicine; Referring Provider Physician Assistant Medical; Visit Provider Physician Assistant Medical | DX: I48.91 Unspecified atrial fibrillation (principal); Z51.81 Encounter for therapeutic drug level monitoring; Z79.899 Other long term (current) drug therapy | CPT/HCPCS: 93225; 93226 ==

== ENCOUNTER → 2025-06-07 | Outpatient (CLI) | payer MEDICARE, OTHER, SELFPAY ==
[2025-06-07 12:34] LABS: AST(SGOT) 27 U/L (<=37); Alanine Aminotransfer ALT/SGPT 18 U/L (<=46); Albumin, Serum 4.1 g/dL (3.4-4.8); Alkaline Phosphatase 84 U/L (40-129); Bilirubin, Direct 0.30 mg/dL (0.00-0.30); Globulin 2.6 g/dL (2.2-4.2)
== END | disposition home or self-care (01) ==
LOC: BFHLAB 10:28
PROVIDERS: PCP Family Medicine; Visit Provider Family Medicine
DX: L29.9 Pruritus, unspecified (principal)
CPT/HCPCS: 36415; 80076